=== PATIENT | female | born 1945 | race Caucasian/White ===

== ENCOUNTER 2017-04-13 09:40 | Outpatient (CLI) | payer MEDICARE, MEDICAID ==
[~2017-04-13] VITALS: Ht 165.1 cm; Wt 70.3 kg
[2017-04-13 09:58] VITALS: BP 145/87
[2017-04-13] MEDS ORDERED: CATAPRES0.1 MG ORAL (10:36)
[2017-04-13] MEDS ORDERED: MIRTAZAPINE15 MG ORAL (10:36)
[2017-04-13] MEDS ORDERED: NAMENDA10 MG ORAL (10:36)
[2017-04-13] MEDS ORDERED: COREG6.25 MG ORAL (10:36)
[2017-04-13] MEDS ORDERED: SAPHRIS5 MG SL (10:36)
[2017-04-13] MEDS ORDERED: FLEET ENEMA133 ML RECTAL (10:36)
[2017-04-13] MEDS ORDERED: ZESTRIL10 M1 ORAL (10:36)
[2017-04-13] MEDS ORDERED: SENNA LAX8.6 MG PO (10:36)
[2017-04-13] MEDS ORDERED: MILK OF MA400 MG/51 ORAL (10:36)
[2017-04-13] MEDS ORDERED: BISACODYL5 MG ORAL (10:36)
[2017-04-13] MEDS ORDERED: ACETAMINOPHEN120 MG RECTAL (10:36)
[2017-04-13] MEDS ORDERED: HYDRALAZINE HCL25 M1 ORAL (10:36)
[2017-04-13] MEDS ORDERED: IRON325 M1 PO (10:36)
[2017-04-13] MEDS ORDERED: PROTONIX40 MG ORAL (10:36)
[2017-04-13] MEDS ORDERED: COLACE100 MG ORAL (10:36)
--- NOTE | 2017-04-13 10:39 | GI Initial Consult Note ---
Julianna Juanjo N.P. 04/13/17 1039: History of Present Illness General Date patient seen: April 13, 2017 Time patient seen: 10:30 Referring physician: JANELLE RENEE Reason for Consultation: UC Present Illness HPI 71 year old patient referred by Dr. Renee for evaluation of possible UC and anemia. The patient presents today with c/o of constipation with minimum relief from laxatives. She also has a hx of dysphagia and is on a puree diet. Home Meds Reported Medications Lisinopril* (ZESTRIL*) 10 Mg Tablet, 10 MG ORAL DAILY, TAB 04/13/17 Acetaminophen* (TYLENOL*) 120 Mg Supp.rect, 120 MG RECTAL Q4H Y, SUPP 04/13/17 Sennosides (SENNA LAX) 8.6 Mg Tablet, 8.6 MG PO, TAB 04/13/17 Mirtazapine* (REMERON*) 15 Mg Tablet, 7.5 MG ORAL BEDTIME, TAB 04/13/17 Pantoprazole* (PROTONIX*) 40 Mg Tablet.dr, 40 MG ORAL DAILY, TAB 04/13/17 Memantine Hcl* (NAMENDA*) 10 Mg Tablet, 10 MG ORAL DAILY, TAB 04/13/17 Magnesium Hydroxide* (MILK OF MAGNESIA*) 400 Mg/5 Ml Oral.susp, 30 ML ORAL DAILY , ML 04/13/17 Hydralazine Hcl* (HYDRALAZINE HCL*) 25 Mg Tablet, 25 MG ORAL EVERY 8 HOURS, TAB 0 Refills 04/13/17 Na Phos,M-B/Na Phos,Di-Ba* (FLEET ENEMA*) 133 Ml Enema, 133 ML RECTAL DAILY, ML 0 Refills 04/13/17 Ferrous Sulfate (IRON) 325 Mg Tablet, 325 MG PO, TAB 04/13/17 Bisacodyl* (DULCOLAX*) 5 Mg Tablet.dr, 10 MG ORAL DAILY, #10 TAB 0 Refills 04/13/17 Docusate Sodium* (COLACE*) 100 Mg Capsule, 100 MG ORAL DAILY, CAP 04/13/17 Carvedilol (Coreg) 6.25 Mg Tablet, 6.25 MG ORAL EVERY 12 HOURS, TAB 04/13/17 Clonidine Hcl* (CATAPRES*) 0.1 Mg Tablet, 0.1 MG ORAL Q12HR, #90 TAB 0 Refills 04/13/17 Asenapine Maleate (SAPHRIS) 5 Mg Tab.subl, 5 MG SL, TAB 04/13/17 Med list reviewed/reconciled: Yes Allergies: Coded Allergies: No Known Allergies (Unverified , 04/13/17) Patient History History Provided By: Patient, Medical Record PMH Narrative UC? breast tumor anemia HTN schizophrenia depression PSHx Left inguinal hernia left leg Family History Narrative N/A Social History: Denies: alcohol use, drug use, other, smoking Review of Systems All Other Systems: negative except mentioned in HPI Physical Exam Vital Signs Date Time Temp Pulse Resp B/P Pulse Ox O2 Delivery O2 Flow Rate FiO2 04/13/17 09:58 98.0 80 18 145/87 100 Sp02 EP Interpretation: reviewed General Appearance: well appearing, no apparent distress, alert Head: normocephalic EENT: PERRL/EOMI, normal ENT inspection Neck: supple Respiratory: normal breath sounds Cardiovascular: normal rate Gastrointestinal: normal inspection, non tender, soft Rectal: deferred Genitourinary: no CVA tenderness Musculoskeletal: normal inspection, back normal Neurologic: alert, responsive Psychiatric: normal inspection Skin: normal inspection, normal color, no rash, warm/dry Lymphatic: normal inspection, no adenopathy GI: Plan Problems: (1) Ulcerative colitis (2) Breast tumor (3) Anemia (4) Colonoscopy planned (5) HTN (hypertension) (6) Schizophrenia (7) Depressed (8) Dysphagia Plan EGD/colonoscopy 04/23/17 - [facility] & [employer] prep instructions given and acknowledged. Seen with Dr. Samson. Thank you for referring this patient, we will follow. AME SAMSON 04/13/17 1045: History of Present Illness Present Illness Home Meds Reported Medications Lisinopril* (ZESTRIL*) 10 Mg Tablet, 10 MG ORAL DAILY, TAB 04/13/17 Acetaminophen* (TYLENOL*) 120 Mg Supp.rect, 120 MG RECTAL Q4H Y, SUPP 04/13/17 Sennosides (SENNA LAX) 8.6 Mg Tablet, 8.6 MG PO, TAB 04/13/17 Mirtazapine* (REMERON*) 15 Mg Tablet, 7.5 MG ORAL BEDTIME, TAB 04/13/17 Pantoprazole* (PROTONIX*) 40 Mg Tablet.dr, 40 MG ORAL DAILY, TAB 04/13/17 Memantine Hcl* (NAMENDA*) 10 Mg Tablet, 10 MG ORAL DAILY, TAB 04/13/17 Magnesium Hydroxide* (MILK OF MAGNESIA*) 400 Mg/5 Ml Oral.susp, 30 ML ORAL DAILY , ML 04/13/17 Hydralazine Hcl* (HYDRALAZINE HCL*) 25 Mg Tablet, 25 MG ORAL EVERY 8 HOURS, TAB 0 Refills 04/13/17 Na Phos,M-B/Na Phos,Di-Ba* (FLEET ENEMA*) 133 Ml Enema, 133 ML RECTAL DAILY, ML 0 Refills 04/13/17 Ferrous Sulfate (IRON) 325 Mg Tablet, 325 MG PO, TAB 04/13/17 Bisacodyl* (DULCOLAX*) 5 Mg Tablet.dr, 10 MG ORAL DAILY, #10 TAB 0 Refills 04/13/17 Docusate Sodium* (COLACE*) 100 Mg Capsule, 100 MG ORAL DAILY, CAP 04/13/17 Carvedilol (Coreg) 6.25 Mg Tablet, 6.25 MG ORAL EVERY 12 HOURS, TAB 04/13/17 Clonidine Hcl* (CATAPRES*) 0.1 Mg Tablet, 0.1 MG ORAL Q12HR, #90 TAB 0 Refills 04/13/17 Asenapine Maleate (SAPHRIS) 5 Mg Tab.subl, 5 MG SL, TAB 04/13/17 Allergies: Coded Allergies: No Known Allergies (Unverified , 04/13/17) GI: Plan Plan The patient was seen and examined at bedside and all new and available data was reviewed in the patients chart. I agree with the above findings, impression and plan. (Patient seen earlier today. Signature stamp does not reflect patient encounter time.). -Johana Tobar MDh Juanjo N.PGlynn April 13, 2017 10:39 AME SAMSON April 13, 2017 10:45
== END 2017-04-13 10:20 | disposition home or self-care (01) ==
LOC: PAN 09:40
DX: K51.90 Ulcerative colitis, unspecified, without complications (principal); D49.6 Neoplasm of unspecified behavior of brain; D64.9 Anemia, unspecified; I10 Essential (primary) hypertension; F20.9 Schizophrenia, unspecified; F32.9 Major depressive disorder, single episode, unspecified; R13.10 Dysphagia, unspecified
CPT/HCPCS: 99201

== ENCOUNTER 2017-05-07 08:33 | Day surgery (SDC) | payer MEDICARE, MEDICAID ==
--- NOTE | 2017-04-23 06:53 | Anethesia Preoperative Eval ---
Anesthesia Pre-op PMH/ROS General Mallampati Score Class I : Soft palate, uvula, fauces, pillars visible Class II: Soft palate, uvula, fauces visible Class III: Soft palate, base of uvula visible Class IV: Only hard plate visible Allergies: Coded Allergies: No Known Allergies (Unverified , 04/13/17) LESTER HWANG April 23, 2017 06:53
[~2017-05-07] VITALS: Ht 166.4 cm; Wt 69.9 kg
[2017-05-07] VITALS (7 sets, daily range): BP systolic 132–153; BP diastolic 72–95
[~2017-05-07 08:33] MED LIST: ACETAMINOPHEN120 MG RECTAL; BISACODYL5 MG ORAL; CATAPRES0.1 MG ORAL; COLACE100 MG ORAL; COREG6.25 MG ORAL; FLEET ENEMA133 ML RECTAL; HYDRALAZINE HCL25 M1 ORAL; IRON325 M1 PO; MILK OF MA400 MG/51 ORAL; MIRTAZAPINE15 MG ORAL; NAMENDA10 MG ORAL; PROTONIX40 MG ORAL; SAPHRIS5 MG SL; SENNA LAX8.6 MG PO; ZESTRIL10 M1 ORAL
[2017-05-07] MEDS ORDERED: Lidocaine 1% MPF 10mg/ml 5ml ONE ×2 (08:34→10:50)
[2017-05-07] MEDS ORDERED: Propofol 10mg/ml 20ml IV ONE ×2 (08:34→10:50)
[2017-05-07] MEDS ORDERED: LR 1000ml ONE (08:34)
--- NOTE | 2017-05-07 10:26 | Short Stay Surgery H&P ---
History of Present Illness History of Present Illness Chief Complaint uc, gerd HPI Radha Joiner is a 71 year old female who was admitted on for Colitis, Anemia Patient History Allergies: Coded Allergies: PENICILLINS (Verified Adverse Reaction, Severe, "passed out", 05/07/17) PAST MEDICAL HISTORY: (1) Dysphagia (2) Colonoscopy planned (3) Depressed (4) HTN (hypertension) (5) Breast tumor (6) Schizophrenia (7) Anemia (8) Ulcerative colitis Past Surgeries: Social History: Medication History Scheduled Bisacodyl* (Dulcolax*), 10 MG ORAL DAILY, (Reported) Carvedilol (Coreg), 6.25 MG ORAL EVERY 12 HOURS, (Reported) Clonidine Hcl* (Catapres*), 0.1 MG ORAL Q12HR, (Reported) Docusate Sodium* (Colace*), 100 MG ORAL DAILY, (Reported) Hydralazine Hcl* (Hydralazine Hcl*), 25 MG ORAL EVERY 8 HOURS, (Reported) Lisinopril* (Zestril*), 10 MG ORAL DAILY, (Reported) Magnesium Hydroxide* (Milk Of Magnesia*), 30 ML ORAL DAILY, (Reported) Memantine Hcl* (Namenda*), 10 MG ORAL DAILY, (Reported) Mirtazapine* (Remeron*), 7.5 MG ORAL BEDTIME, (Reported) Na Phos,M-B/Na Phos,Di-Ba* (Fleet Enema*), 133 ML RECTAL DAILY, (Reported) Pantoprazole* (Protonix*), 40 MG ORAL DAILY, (Reported) Scheduled PRN Acetaminophen* (Tylenol*), 120 MG RECTAL Q4H PRN, (Reported) Miscellaneous Medications Asenapine Maleate (Saphris), 5 MG SL, (Reported) Ferrous Sulfate (Iron), 325 MG PO, (Reported) Sennosides (Senna Lax), 8.6 MG PO, (Reported) Review of Systems Cardiovascular: Reports: no symptoms Respiratory: Reports: no symptoms Skeletal: Reports: no symptoms Gastrointestinal: Reports: no symptoms Genitourinary: Reports: no symptoms Neurologic: Reports: no symptoms Endocrine: Reports: no symptoms Hematologic: Reports: no symptoms Physical Exam Vital Signs Last Vital Signs Date Time Temp Pulse Resp B/P Pulse Ox O2 Delivery O2 Flow Rate FiO2 05/07/17 09:40 97.3 84 18 146/72 99 Room Air Skin: normal HENT: normal Heart: normal Lungs: normal Abdomen: normal Extremities: normal Plan Plan of Care egd/colon Final Diagnosis: Attestation Are the patient's medical conditions optimized for surgery? Attestation Response: yes AME SAMSON May 07, 2017 10:26
--- NOTE | 2017-05-07 10:30 | Pre-Procedure Note/Attestation ---
Pre-Procedure Note/Attestation Complete Prior to Procedure Planned Procedure: not applicable Procedure Narrative: egd/colon Indications for Procedure Pre-Operative Diagnosis: uc, gerd Attestation I attest that I discussed the nature of the procedure; its benefits; risks and complications; and alternatives (and the risks and benefits of such alternatives ), prior to the procedure, with the patient (or the patient's legal claims customer service representative). I attest that, if there was a reasonable possibility of needing a blood transfusion, the patient (or the patient's legal claims customer service representative) was given the [facility] standardized written summary, pursuant to the Germain Anabel Blood Safety Act ([place] Health and Safety Code # 1645, as amended). I attest that I re-evaluated the patient just prior to the surgery and that there has been no change in the patient's H&P, except as documented below: AME SAMSON May 07, 2017 10:30
--- NOTE | 2017-05-07 11:20 | Endoscopy Procedure Note ---
Endoscopy Procedure Note Indication for Procedure: colitis, anemia Procedures Performed: EGD, colonoscopy Operative Findings/Diagnosis: esoph stricture, ?colon mass Specimen: yes Pt Tolerated Procedure Well: Yes Estimated Blood Loss: none Anesthesiologist: pamela Anesthesia: MAC Implant(s) used?: No 50 yrs or older w/o bx or poly: No If not recommended, why?: Above average risk 10 yrs. F/U needed: Yes 18 years or older w/prev. colo: No AME SAMSON May 07, 2017 11:20
--- NOTE | 2017-05-07 11:34 | Immediate Post-Op Evaluation ---
Immediate Post-Op Evalulation Immediate Post-Op Evalulation Procedure: egd/colonoscopy Date of Evaluation: May 07, 2017 Time of Evaluation: 11:33 IV Fluids: 500 Blood Pressure Systolic: 130 Blood Pressure Diastolic: 60 Pulse Rate: 78 Respiratory Rate: 14 O2 Sat by Pulse Oximetry: 100 Nausea: No Vomiting: No Complications none Patient Status: awake, patent Hydration Status: adequate Drug: none CEE MARTIN CRNA May 07, 2017 11:34
--- NOTE | 2017-05-07 11:35 | Anethesia Preoperative Eval ---
Anesthesia Pre-op PMH/ROS General Date of Evaluation: May 07, 2017 Time of Evaluation: 11:34 Anesthesiologist: laron ASA Score: ASA 3 Mallampati Score Class I : Soft palate, uvula, fauces, pillars visible Class II: Soft palate, uvula, fauces visible Class III: Soft palate, base of uvula visible Class IV: Only hard plate visible Mallampati Classification: Class III Surgeon: fredis Diagnosis: anemia Surgical Procedure: egd/Colonoscopy Anesthesia History: none Family History: no anesthesia problems Allergies: Coded Allergies: PENICILLINS (Verified Adverse Reaction, Severe, "passed out", 05/07/17) Medications: see eMAR Past Medical History Cardiovascular: Reports: HTN Pulmonary: Denies: COPD, RIYA, asthma, other Gastrointestinal/Genitourinary: Reports: GERD Neurologic/Psychiatric: Reports: other - schizo Endocrine: Denies: DM, hypothyroidism, other, steroids HEENT: Denies: KALTAG (L), KALTAG (R), cataract (L), cataract (R), glaucoma, other Hematology/Immune: Reports: anemia PSxH Narrative: see chart Anesthesia Pre-op Phys. Exam Physician Exam Last Vital Signs Date Time Temp Pulse Resp B/P Pulse Ox O2 Delivery O2 Flow Rate FiO2 05/07/17 09:40 97.3 84 18 146/72 99 Room Air Constitutional: NAD Neurologic: CN 2-12 intact Cardiovascular: RRR Respiratory: CTA Gastrointestinal: S/NT/ND Airway Exam Mallampati Classification 3 Mallampati Score: Class II MO: limited ROM: limited Dentures: no lower, no upper Anesthesia Pre-op A/P Studies Pre-op Studies: EKG - sr Risk Assessment & Plan Plan: mac Status Change Before Surgery: No Pre-Antibiotics Drug: none CEE MARTIN CHANGE MANAGEMENT CONSULTANT May 07, 2017 11:35
--- NOTE | 2017-05-07 11:49 | 48 Hour Post Anesthesia Eval ---
Post Anesthesia Evaluation Procedure: egd/colonoscopy Date of Evaluation: May 07, 2017 Time of Evaluation: 11:49 Blood Pressure Systolic: 112 0: 50 Pulse Rate: 70 Respiratory Rate: 14 O2 Sat by Pulse Oximetry: 99 Airway: patent Nausea: No Vomiting: No Hydration Status: adequate Cardiopulmonary Status: stable Mental Status/LOC: patient returned to baseline Post-Anesthesia Complications: none Follow-up care needed: N/A CEE MARTIN CRNA May 07, 2017 11:49
--- NOTE | 2017-05-07 18:15 | Procedure Note ---
DATE OF PROCEDURE: 05/07/2017 PROCEDURE: Upper endoscopy and colonoscopy. SURGEON: Willy Eldridge M.D. ANESTHESIA: Per Lexi GALINDO INSTRUMENT: Olympus adult flexible upper endoscope and colonoscope. INDICATION: History of Crohn's disease and anemia. The procedure, risks, benefits, and possible consequences, including hemorrhage, aspiration, perforation and infection, and alternative treatments, were explained to the patient/legal guardian by Dr. Willy Eldridge and the patient/legal guardian understood and accepted these risks. PROCEDURE IN DETAIL: After informed consent was obtained and the patient was adequately sedated, Olympus endoscope was advanced from mouth into the esophagus. Right at the GE junction, there was a very tight stricture. We could not pass the scope through. We do not have consent for dilatation. So, we had to abort the procedure at this time. At this time, the upper endoscope was retrieved. The patient was turned over for colonoscopy. First, a rectal exam was performed, which was normal. Then, the scope was advanced from the rectum into the area, which seems to be proximal transverse colon. We encountered a narrowing and inflammation lesion in this area suspicious for either malignancy versus severe stricture inflammatory. Biopsy from this area was obtained. We could not pass the scope beyond this point. The most proximal part of this area was tattooed. Then, the scope was gradually retrieved. The patient has evidence of significant diverticulosis throughout the rest of the colon. Retroflexion of rectum showed some internal hemorrhoids. SUMMARY OF FINDINGS: 1. Esophageal stricture at the GE junction. We could not pass the scope. 2. A lesion in the proximal transverse colon causing luminal obstruction. We could not pass the scope. Biopsy from this area was obtained and also was tattooed. 3. Diverticulosis. 4. Internal hemorrhoids. RECOMMENDATIONS: The patient needs to get a CT of the chest, abdomen, and pelvis. Follow biopsy results. Send CEA. The patient will need a repeat endoscopy with dilatation in the next week hopefully. The patient to follow in the office to go over all this and explained to her. Willy Eldridge M.D. DR: SILVIA JOB#: [id number] CC:
== END 2017-05-07 13:15 | disposition home or self-care (01) ==
LOC: GAS 08:33
DX: C18.4 Malignant neoplasm of transverse colon (principal); K57.30 Diverticulosis of large intestine without perforation or abscess without bleeding; K64.8 Other hemorrhoids; D64.9 Anemia, unspecified; K22.2 Esophageal obstruction; Z87.19 Personal history of other diseases of the digestive system; F32.9 Major depressive disorder, single episode, unspecified; I10 Essential (primary) hypertension; R13.10 Dysphagia, unspecified; F20.9 Schizophrenia, unspecified; Z88.0 Allergy status to penicillin; Z53.8 Procedure and treatment not carried out for other reasons
CPT/HCPCS: 43235; 45380; 45381; 82962; 93005; J2704; J7120; 94003; 94150

== ENCOUNTER 2017-05-19 15:04 | Outpatient (CLI) | payer MEDICARE, MEDICAID ==
[2017-05-20] MEDS ORDERED: ACETAMINOPHEN325 M1 ORAL (15:05)
[2017-05-20] MEDS ORDERED: DULCOLAX10 MG RC (15:05)
--- NOTE | 2017-05-20 15:32 | Diagnostic Imaging Report ---
Indication: Abdominal pain Technique: Spiral acquisitions obtained through the abdomen and pelvis. Patient given oral contrast. No IV contrast utilized, per patient request.. Multiplanar reconstructions were generated. Total dose length product 762 mGycm. CTDIvol(s) 15 mGy. Dose reduction achieved using automated exposure control Comparison: None Findings: There is colonic diverticulosis. There is slight infiltration of the pericolonic fat in the region of the junction of the descending and sigmoid colon. There are a few prominent lymph nodes in the vicinity. The appendix not definitely identified, but there are no findings to suggest acute appendicitis. No small bowel distention or small bowel wall thickening. Contrast traverses the entirety of the small bowel.. Immediately deep to the rectus abdominis tendon, there is a small fluid collection which measures 5.4 cm transverse a 4.4 cm craniocaudad by 2.2 cm thick. This demonstrates a somewhat prominent enhancing rim. This appears to be at the cephalad aspect of the surgical incision. There is a moderate-sized sliding-type hiatal hernia. There is prominent soft tissue thickening in the region of the gastric cardia, measuring approximately 5.6 x 2.3 cm. The duodenum is unremarkable except for a small diverticulum. Lack of IV contrast limits assessment of the solid organs. The liver demonstrates a subtle area of low attenuation in segment 5 which measures 4.5 cm in diameter, not cystic. A few small subcentimeter low-attenuation areas are seen scattered throughout the liver, too small to characterize. The gallbladder is unremarkable. The bile ducts are unremarkable. The pancreas, spleen, adrenals are unremarkable. The left kidney demonstrates a 1.6 cm upper pole cyst. There is a 2.2 cm exophytic left renal interpolar lesion which demonstrates nonspecific soft tissue attenuation. A second 1.9 cm lesion is seen coming off of the lower pole, demonstrates similar nonspecific soft tissue attenuation. A 1.5 cm cyst coming off of the medial lower pole. The right kidney demonstrates a anterior contour bulge measuring 2.2 cm, could represent a mass, likewise demonstrate nonspecific soft tissue attenuation, and a similar one in the anteromedial upper pole. There is a slightly hyperattenuating 8mm lesion in the right renal interpolar region, which demonstrates nonspecific attenuation. No retroperitoneal mass or adenopathy. No pelvic mass or adenopathy. The uterus is unremarkable. The left ovary demonstrates a 2.7 cm cyst. Included lung bases are clear except for minimal atelectasis or scarring on the left. Impression: Colonic diverticulosis. Slight infiltration of the pericolonic fat in the region of the junction of the descending and sigmoid colon, could indicate early acute diverticulitis. Local lymphadenopathy, likely reactive 5.4 x 4.4 x 2.2 cm fluid collection deep to the rectus abdominis tendon. This appears to be at the cephalad aspect of the surgical scar, suspect that this is a post surgical clip collection. Nonetheless infected collection cannot be ruled out. Correlate with clinical findings, consider aspiration clinical suspicious 4.5 cm low-attenuation lesion in segment 5 of the liver. Not better characterize in the absence of IV contrast, but primary or metastatic neoplasm definitely a possible etiology. Liver abscess also a possibility. Recommend further evaluation with contrast CT or MRI Hiatal hernia Multiple exophytic renal lesions bilaterally, isoattenuating to renal parenchyma. Any of these could represent a solid neoplasm. Further evaluation with contrast CT or MRI recommended Apparent gastric fundal lesion. While quite possibly defect due to redundant mucosa related to incomplete distention, a mass is definitely a possibility. Consider further evaluation with endoscopy 2.7 cm left ovarian cyst, likely a benign functional cyst but not definitely in a postmenopausal female. Furthe -- r evaluation with pelvic and endovaginal ultrasound is recommended Incidental findings as noted, including degenerative lumbar spondylosis, duodenal diverticulum, left basilar pulmonary atelectasis or scar Findings discussed by phone with Dr. Eldridge at the time of interpretation The CT scanner at [facility] is accredited by the [employer] and the scans are performed using protocols designed to limit radiation exposure to as low as reasonably achievable to attain images of sufficient resolution adequate for diagnostic evaluation.
== END 2017-05-19 17:04 | disposition home or self-care (01) ==
LOC: CAT 15:04
DX: C18.9 Malignant neoplasm of colon, unspecified (principal)
CPT/HCPCS: 74176

== ENCOUNTER 2017-05-20 09:51 | Outpatient (CLI) | payer MEDICARE, MEDICAID ==
--- NOTE | 2017-05-19 17:27 | Diagnostic Imaging Report ---
Indication: Abdominal pain Technique: Spiral acquisitions obtained through the abdomen and pelvis. Patient given oral contrast. No IV contrast utilized, per patient request.. Multiplanar reconstructions were generated. Total dose length product 762 mGycm. CTDIvol(s) 15 mGy. Dose reduction achieved using automated exposure control Comparison: None Findings: There is colonic diverticulosis. There is slight infiltration of the pericolonic fat in the region of the junction of the descending and sigmoid colon. There are a few prominent lymph nodes in the vicinity. The appendix not definitely identified, but there are no findings to suggest acute appendicitis. No small bowel distention or small bowel wall thickening. Contrast traverses the entirety of the small bowel.. Immediately deep to the rectus abdominis tendon, there is a small fluid collection which measures 5.4 cm transverse a 4.4 cm craniocaudad by 2.2 cm thick. This demonstrates a somewhat prominent enhancing rim. This appears to be at the cephalad aspect of the surgical incision. There is a moderate-sized sliding-type hiatal hernia. There is prominent soft tissue thickening in the region of the gastric cardia, measuring approximately 5.6 x 2.3 cm. The duodenum is unremarkable except for a small diverticulum. Lack of IV contrast limits assessment of the solid organs. The liver demonstrates a subtle area of low attenuation in segment 5 which measures 4.5 cm in diameter, not cystic. A few small subcentimeter low-attenuation areas are seen scattered throughout the liver, too small to characterize. The gallbladder is unremarkable. The bile ducts are unremarkable. The pancreas, spleen, adrenals are unremarkable. The left kidney demonstrates a 1.6 cm upper pole cyst. There is a 2.2 cm exophytic left renal interpolar lesion which demonstrates nonspecific soft tissue attenuation. A second 1.9 cm lesion is seen coming off of the lower pole, demonstrates similar nonspecific soft tissue attenuation. A 1.5 cm cyst coming off of the medial lower pole. The right kidney demonstrates a anterior contour bulge measuring 2.2 cm, could represent a mass, likewise demonstrate nonspecific soft tissue attenuation, and a similar one in the anteromedial upper pole. There is a slightly hyperattenuating 8mm lesion in the right renal interpolar region, which demonstrates nonspecific attenuation. No retroperitoneal mass or adenopathy. No pelvic mass or adenopathy. The uterus is unremarkable. The left ovary demonstrates a 2.7 cm cyst. Included lung bases are clear except for minimal atelectasis or scarring on the left. Impression: Colonic diverticulosis. Slight infiltration of the pericolonic fat in the region of the junction of the descending and sigmoid colon, could indicate early acute diverticulitis. Local lymphadenopathy, likely reactive 5.4 x 4.4 x 2.2 cm fluid collection deep to the rectus abdominis tendon. This appears to be at the cephalad aspect of the surgical scar, suspect that this is a post surgical clip collection. Nonetheless infected collection cannot be ruled out. Correlate with clinical findings, consider aspiration clinical suspicious 4.5 cm low-attenuation lesion in segment 5 of the liver. Not better characterize in the absence of IV contrast, but primary or metastatic neoplasm definitely a possible etiology. Liver abscess also a possibility. Recommend further evaluation with contrast CT or MRI Hiatal hernia Multiple exophytic renal lesions bilaterally, isoattenuating to renal parenchyma. Any of these could represent a solid neoplasm. Further evaluation with contrast CT or MRI recommended Apparent gastric fundal lesion. While quite possibly defect due to redundant mucosa related to incomplete distention, a mass is definitely a possibility. Consider further evaluation with endoscopy 2.7 cm left ovarian cyst, likely a benign functional cyst but not definitely in a postmenopausal female. Furthe -- r evaluation with pelvic and endovaginal ultrasound is recommended Incidental findings as noted, including degenerative lumbar spondylosis, duodenal diverticulum, left basilar pulmonary atelectasis or scar Findings discussed by phone with Dr. Eldridge at the time of interpretation The CT scanner at [facility] is accredited by the [employer] and the scans are performed using protocols designed to limit radiation exposure to as low as reasonably achievable to attain images of sufficient resolution adequate for diagnostic evaluation.
[2017-05-20 14:56] VITALS: BP 142/71
[2017-05-20] MEDS ORDERED: ACETAMINOPHEN325 M1 ORAL (15:05)
[2017-05-20] MEDS ORDERED: DULCOLAX10 MG RC (15:05)
--- NOTE | 2017-05-20 15:46 | GI Progress Note ---
Assessment/Plan Problems: (1) Esophageal stricture ICD Codes: K22.2 - Esophageal obstruction SNOMED: 73380641 (2) Liver lesion ICD Codes: K76.9 - Liver disease, unspecified SNOMED: 438392728 (3) Colon cancer ICD Codes: C18.9 - Malignant neoplasm of colon, unspecified SNOMED: 357556797 (4) Dysphagia ICD Codes: R13.10 - Dysphagia, unspecified SNOMED: 26749334, 897483977 (5) Anemia ICD Codes: D64.9 - Anemia, unspecified SNOMED: 826421625 (6) Ulcerative colitis ICD Codes: K51.90 - Ulcerative colitis, unspecified, without complications SNOMED: 36783249 Status: stable, unchanged Status Narrative Discussed with Dr. Eldridge. Assessment/Plan Endoscopy Procedure Note Indication for Procedure: colitis, anemia Procedures Performed: EGD, colonoscopy Operative Findings/Diagnosis: esoph stricture, ?colon mass AME ELDRIDGE - May 07, 2017 11:20 APCT reviewed, see full report below. ordered PET/CT to be done at [facility] 06/07/17. scheduled patient for EGD with dilation 06/04/17. - NPO @ [place] day prior to procedure. referred to surgeon and oncology. Subjective Subjective constipation dysphagia Objective Last 24 Hour Vital Signs Date Time Temp Pulse Resp B/P Pulse Ox O2 Delivery O2 Flow Rate FiO2 05/20/17 14:56 98.0 69 16 142/71 General Appearance: no apparent distress, alert Cardiovascular: normal rate Respiratory/Chest: normal breath sounds, no respiratory distress Abdominal Exam: normal bowel sounds, non tender, soft Extremities: normal range of motion Objective Procedure: CT Abdomen Pelvis WO Contrast Indication: Abdominal pain Impression: Colonic diverticulosis. Slight infiltration of the pericolonic fat in the region of the junction of the descending and sigmoid colon, could indicate early acute diverticulitis. Local lymphadenopathy, likely reactive 5.4 x 4.4 x 2.2 cm fluid collection deep to the rectus abdominis tendon. This appears to be at the cephalad aspect of the surgical scar, suspect that this is a post surgical clip collection. Nonetheless infected collection cannot be ruled out. Correlate with clinical findings, consider aspiration clinical suspicious 4.5 cm low-attenuation lesion in segment 5 of the liver. Not better characterize in the absence of IV contrast, but primary or metastatic neoplasm definitely a possible etiology. Liver abscess also a possibility. Recommend further evaluation with contrast CT or MRI Hiatal hernia Multiple exophytic renal lesions bilaterally, isoattenuating to renal parenchyma. Any of these could represent a solid neoplasm. Further evaluation with contrast CT or MRI recommended Apparent gastric fundal lesion. While quite possibly defect due to redundant mucosa related to incomplete distention, a mass is definitely a possibility. Consider further evaluation with endoscopy 2.7 cm left ovarian cyst, likely a benign functional cyst but not definitely in a postmenopausal female. Further evaluation with pelvic and endovaginal ultrasound is recommended Incidental findings as noted, including degenerative lumbar spondylosis, duodenal diverticulum, left basilar pulmonary atelectasis or scar Julianna Nguyen N.P. May 20, 2017 15:46
== END 2017-05-20 10:30 | disposition home or self-care (01) ==
LOC: PAN 09:51
DX: K22.2 Esophageal obstruction (principal); K76.9 Liver disease, unspecified; C18.9 Malignant neoplasm of colon, unspecified; R13.10 Dysphagia, unspecified; D64.9 Anemia, unspecified; K51.90 Ulcerative colitis, unspecified, without complications; K57.90 Diverticulosis of intestine, part unspecified, without perforation or abscess without bleeding; R59.1 Generalized enlarged lymph nodes; K44.9 Diaphragmatic hernia without obstruction or gangrene; N83.202 Unspecified ovarian cyst, left side; M47.896 Other spondylosis, lumbar region
CPT/HCPCS: 74176; G0463; 99211

== ENCOUNTER 2017-06-04 08:13 | Day surgery (SDC) | payer MEDICARE, MEDICAID ==
[2017-06-04] VITALS (7 sets, daily range): BP systolic 102–120; BP diastolic 63–76
[~2017-06-04] VITALS: Ht 165.1 cm; Wt 68.0 kg
[~2017-06-04 08:13] MED LIST changes: +ACETAMINOPHEN325 M1 ORAL; +DULCOLAX10 MG RC
[2017-06-04] MEDS ORDERED: Lidocaine 1% MPF 10mg/ml 5ml ONE (08:14)
[2017-06-04] MEDS ORDERED: Propofol 10mg/ml 20ml IV ONE (08:14)
[2017-06-04] MEDS ORDERED: LR 1000ml ONE (08:14)
[2017-06-04 09:25] LABS: EOSINOPHILS % (AUTO) 2.4 % (0.0-3.0); MEAN CORPUSCULAR HEMOGLOBIN 27.3 PG (27.0-31.0); MEAN CORPUSCULAR HGB CONC 31.9 G/DL (32.0-36.0); MEAN CORPUSCULAR VOLUME 85 FL (80-99); MEAN PLATELET VOLUME 5.8 FL (6.5-10.1); MONOCYTES % (AUTO) 5.4 % (1.0-10.0); NEUTROPHILS % (AUTO) 74.2 % (45.0-75.0); PLATELET COUNT 201 K/UL (150-450); RED BLOOD COUNT 4.49 M/UL (4.20-5.40); RED CELL DISTRIBUTION WIDTH 15.2 % (11.6-14.8); WHITE BLOOD COUNT 7.4 K/UL (4.8-10.8)
[2017-06-04 09:52] LABS: ALANINE AMINOTRANSFERASE 7 U/L (3-33); ALBUMIN/GLOBULIN RATIO 1.2 (1.0-2.7); AMYLASE 144 U/L (10-110); ANION GAP 18 (5-15); ASPARTATE AMINO TRANSFERASE 15 U/L (5-40); CALCIUM 9.9 mg/dL (8.6-10.2); CARBON DIOXIDE 23 mEQ/L (20-30); CHLORIDE 103 mEQ/L (98-107); CREATININE 1.8 mg/dL (0.5-0.9); HEMOLYSIS 6; LIPASE 30 U/L (< 60); POTASSIUM 4.2 mEQ/L (3.4-4.9); SODIUM 144 mEQ/L (135-145); TOTAL PROTEIN 7.2 g/dL (6.6-8.7)
--- NOTE | 2017-06-04 09:53 | Pre-Procedure Note/Attestation ---
Pre-Procedure Note/Attestation Complete Prior to Procedure Planned Procedure: not applicable Procedure Narrative: esophagogastroduodenoscopy with dilatation Indications for Procedure Pre-Operative Diagnosis: esoph stricture Attestation I attest that I discussed the nature of the procedure; its benefits; risks and complications; and alternatives (and the risks and benefits of such alternatives ), prior to the procedure, with the patient (or the patient's legal sales account representative). I attest that, if there was a reasonable possibility of needing a blood transfusion, the patient (or the patient's legal sales account representative) was given the [facility] standardized written summary, pursuant to the [place] Blood Safety Act ([place] Health and Safety Code # 1645, as amended). I attest that I re-evaluated the patient just prior to the surgery and that there has been no change in the patient's H&P, except as documented below: AME SAMSON Jun 04, 2017 09:53
--- NOTE | 2017-06-04 09:54 | Short Stay Surgery H&P ---
History of Present Illness History of Present Illness Chief Complaint esoph stricture HPI Radha Joiner is a 72 year old female who was admitted on for Esophageal Stricture Patient History Allergies: Coded Allergies: PENICILLINS (Verified Adverse Reaction, Severe, "passed out", 05/07/17) PAST MEDICAL HISTORY: (1) Schizophrenia (2) Breast tumor (3) HTN (hypertension) (4) Depressed (5) Anemia (6) Esophageal stricture (7) Liver lesion (8) Colon cancer Past Surgeries: Social History: Medication History Scheduled Asenapine Maleate (Saphris), 5 MG SL BID, (Reported) Bisacodyl (Dulcolax), 10 MG RC PRN, (Reported) Carvedilol (Coreg), 6.25 MG ORAL EVERY 12 HOURS, (Reported) Docusate Sodium* (Colace*), 100 MG ORAL DAILY, (Reported) Ferrous Sulfate (Iron), 325 MG PO DAILY, (Reported) Hydralazine Hcl* (Hydralazine Hcl*), 25 MG ORAL EVERY 8 HOURS, (Reported) Lisinopril* (Zestril*), 10 MG ORAL DAILY, (Reported) Magnesium Hydroxide* (Milk Of Magnesia*), 30 ML ORAL DAILY, (Reported) Memantine Hcl* (Namenda*), 10 MG ORAL BID, (Reported) Mirtazapine* (Remeron*), 7.5 MG ORAL BEDTIME, (Reported) Na Phos,M-B/Na Phos,Di-Ba* (Fleet Enema*), 133 ML RECTAL DAILY, (Reported) Pantoprazole* (Protonix*), 40 MG ORAL DAILY, (Reported) Sennosides (Senna Lax), 17.2 MG PO HS, (Reported) Scheduled PRN Acetaminophen* (Acetaminophen 325MG Tablet*), 650 MG ORAL Q4H PRN for Pain Scale (3-5), (Reported) Clonidine Hcl* (Catapres*), 0.1 MG ORAL Q12HR PRN for For High Blood Pressure, ( Reported) Review of Systems Cardiovascular: Reports: no symptoms Respiratory: Reports: no symptoms Skeletal: Reports: no symptoms Gastrointestinal: Reports: no symptoms Genitourinary: Reports: no symptoms Neurologic: Reports: no symptoms Endocrine: Reports: no symptoms Hematologic: Reports: no symptoms Physical Exam Vital Signs Last Vital Signs Date Time Temp Pulse Resp B/P Pulse Ox O2 Delivery O2 Flow Rate FiO2 06/04/17 08:46 97.1 70 18 118/68 100 Room Air Labs Laboratory Tests Test 06/04/17 08:45 White Blood Count 7.4 K/UL (4.8-10.8) Red Blood Count 4.49 M/UL (4.20-5.40) Hemoglobin 12.2 G/DL (12.0-16.0) Hematocrit 38.3 % (37.0-47.0) Mean Corpuscular Volume 85 FL (80-99) Mean Corpuscular Hemoglobin 27.3 PG (27.0-31.0) Mean Corpuscular Hemoglobin Concent 31.9 G/DL (32.0-36.0) L Red Cell Distribution Width 15.2 % (11.6-14.8) H Platelet Count 201 K/UL (150-450) Mean Platelet Volume 5.8 FL (6.5-10.1) L Neutrophils (%) (Auto) 74.2 % (45.0-75.0) Lymphocytes (%) (Auto) 17.0 % (20.0-45.0) L Monocytes (%) (Auto) 5.4 % (1.0-10.0) Eosinophils (%) (Auto) 2.4 % (0.0-3.0) Basophils (%) (Auto) 1.0 % (0.0-2.0) Sodium Level Pending Potassium Level Pending Chloride Level Pending Carbon Dioxide Level Pending Blood Urea Nitrogen Pending Creatinine Pending Estimat Glomerular Filtration Rate Pending Glucose Level Pending Calcium Level Pending Total Bilirubin Pending Aspartate Amino Transf (AST/SGOT) Pending Alanine Aminotransferase (ALT/SGPT) Pending Alkaline Phosphatase Pending Total Protein Pending Albumin Pending Globulin Pending Amylase Level Pending Lipase Pending Carcinoembryonic Antigen Pending CA 19-9 Antigen Pending Skin: normal HENT: normal Heart: normal Lungs: normal Abdomen: normal Extremities: normal Plan Plan of Care esophagogastroduodenoscopy and dilatation Final Diagnosis: Attestation Are the patient's medical conditions optimized for surgery? Attestation Response: yes AME SAMSON Jun 04, 2017 09:54
--- NOTE | 2017-06-04 10:46 | Immediate Post-Op Evaluation ---
Immediate Post-Op Evalulation Immediate Post-Op Evalulation Procedure: EDG Date of Evaluation: Jun 04, 2017 Time of Evaluation: 10:46 IV Fluids: 500 Blood Pressure Systolic: 102 Blood Pressure Diastolic: 68 Pulse Rate: 50 Respiratory Rate: 14 O2 Sat by Pulse Oximetry: 100 Temperature (Fahrenheit): 97.5 Nausea: No Vomiting: No Complications none Patient Status: awake, reacts, patent Hydration Status: adequate Drug: none CEE MARTIN CRNA Jun 04, 2017 10:46
--- NOTE | 2017-06-04 10:50 | Endoscopy Procedure Note ---
Endoscopy Procedure Note Indication for Procedure: dysphagia Procedures Performed: EGD Operative Findings/Diagnosis: esoph stricture Specimen: yes Pt Tolerated Procedure Well: Yes Estimated Blood Loss: none Anesthesiologist: pamela Anesthesia: MAC Implant(s) used?: No 50 yrs or older w/o bx or poly: Not Applicable 10yrs. F/U not recommended: Not Applicable AME SAMSON Jun 04, 2017 10:50
--- NOTE | 2017-06-04 10:53 | Anethesia Preoperative Eval ---
Anesthesia Pre-op PMH/ROS General Date of Evaluation: Jun 04, 2017 Time of Evaluation: 10:10 Anesthesiologist: laron ASA Score: ASA 3 Mallampati Score Class I : Soft palate, uvula, fauces, pillars visible Class II: Soft palate, uvula, fauces visible Class III: Soft palate, base of uvula visible Class IV: Only hard plate visible Mallampati Classification: Class III Surgeon: fredis Diagnosis: esophageal stricture Surgical Procedure: egd Anesthesia History: none Family History: no anesthesia problems Allergies: Coded Allergies: PENICILLINS (Verified Adverse Reaction, Severe, "passed out", 05/07/17) Medications: see eMAR Past Medical History Cardiovascular: Reports: HTN Pulmonary: Denies: COPD, RIYA, asthma, other Gastrointestinal/Genitourinary: Reports: other - hx colon ca Neurologic/Psychiatric: Reports: depression/anxiety Endocrine: Reports: DM HEENT: Denies: [place] (L), [place] (R), cataract (L), cataract (R), glaucoma, other Hematology/Immune: Reports: anemia Musculoskeletal/Integumentary: Denies: DDD, DJD, OA, RA, edema, other PSxH Narrative: egd Anesthesia Pre-op Phys. Exam Physician Exam Last Vital Signs Date Time Temp Pulse Resp B/P Pulse Ox O2 Delivery O2 Flow Rate FiO2 06/04/17 10:46 50 14 100 06/04/17 10:40 111/71 Room Air 06/04/17 10:35 3.0 06/04/17 10:32 97.5 Constitutional: NAD Neurologic: CN 2-12 intact Cardiovascular: RRR Respiratory: CTA Gastrointestinal: S/NT/ND Airway Exam Mallampati Classification 3 Mallampati Score: Class III MO: limited ROM: limited Dentures: no lower, no upper Anesthesia Pre-op A/P Labs Hematology Test 06/04/17 08:45 White Blood Count 7.4 K/UL (4.8-10.8) Red Blood Count 4.49 M/UL (4.20-5.40) Hemoglobin 12.2 G/DL (12.0-16.0) Hematocrit 38.3 % (37.0-47.0) Mean Corpuscular Volume 85 FL (80-99) Mean Corpuscular Hemoglobin 27.3 PG (27.0-31.0) Mean Corpuscular Hemoglobin Concent 31.9 G/DL (32.0-36.0) L Red Cell Distribution Width 15.2 % (11.6-14.8) H Platelet Count 201 K/UL (150-450) Mean Platelet Volume 5.8 FL (6.5-10.1) L Neutrophils (%) (Auto) 74.2 % (45.0-75.0) Lymphocytes (%) (Auto) 17.0 % (20.0-45.0) L Monocytes (%) (Auto) 5.4 % (1.0-10.0) Eosinophils (%) (Auto) 2.4 % (0.0-3.0) Basophils (%) (Auto) 1.0 % (0.0-2.0) Chemistry Test 06/04/17 08:45 Sodium Level 144 mEQ/L (135-145) Potassium Level 4.2 mEQ/L (3.4-4.9) Chloride Level 103 mEQ/L (98-107) Carbon Dioxide Level 23 mEQ/L (20-30) Anion Gap 18 (5-15) H Blood Urea Nitrogen 49 mg/dL (7-23) H Creatinine 1.8 mg/dL (0.5-0.9) H Estimat Glomerular Filtration Rate mL/min (>60) Glucose Level 120 mg/dL (74-106) H Calcium Level 9.9 mg/dL (8.6-10.2) Total Bilirubin 0.4 mg/dL (0.0-1.2) Aspartate Amino Transf (AST/SGOT) 15 U/L (5-40) Alanine Aminotransferase (ALT/SGPT) 7 U/L (3-33) Alkaline Phosphatase 83 U/L (35-104) Total Protein 7.2 g/dL (6.6-8.7) Albumin 4.0 g/dL (3.5-5.2) Globulin 3.2 g/dL Albumin/Globulin Ratio 1.2 (1.0-2.7) Amylase Level 144 U/L (10-110) H Lipase 30 U/L (< 60) Carcinoembryonic Antigen 29.4 ng/mL H CA 19-9 Antigen 104.4 U/mL (< 37) H Accucheck 83 Studies Pre-op Studies: EKG - sr Risk Assessment & Plan Plan: yakov Status Change Before Surgery: No Pre-Antibiotics Drug: none CEE MARTIN CRNA Jun 04, 2017 10:53
--- NOTE | 2017-06-04 11:10 | 48 Hour Post Anesthesia Eval ---
Post Anesthesia Evaluation Procedure: EDG Date of Evaluation: Jun 04, 2017 Time of Evaluation: 11:10 Blood Pressure Systolic: 120 0: 76 O2 Sat by Pulse Oximetry: 99 Airway: patent Nausea: No Vomiting: No Hydration Status: adequate Cardiopulmonary Status: stable Mental Status/LOC: patient returned to baseline Post-Anesthesia Complications: none Follow-up care needed: N/A CEE MARTIN CRNA Jun 04, 2017 11:10
--- NOTE | 2017-06-04 16:30 | Procedure Note ---
DATE OF PROCEDURE: 06/04/2017 SURGEON: Willy Eldridge M.D. PROCEDURE: Upper endoscopy with dilatation and biopsy. ANESTHESIA: Per AUTOMOTIVE PAINT TECHNICIAN, Lexi Sanchez. INSTRUMENT: Olympus adult flexible upper endoscope. INDICATION: Esophageal stricture and dysphagia. The procedure, risks, benefits, and possible consequences, including hemorrhage, aspiration, perforation and infection, and alternative treatments, were explained to the patient/legal guardian by Dr. Willy Eldridge and the patient/legal guardian understood and accepted these risks. DESCRIPTION OF PROCEDURE: After informed consent was obtained and the patient was adequately sedated, Olympus upper endoscope was advanced from mouth into the esophagus. We encountered a narrow stricture at the distal esophagus. At this time, we started our balloon dilatation, started with 8, 9, 10, and 11 balloon initially, which was easily dilated to 10. There was a little bit of tear at the dilation area, but still could not pass the upper scope. So, we switched to 10, 11, and 12 balloon dilatation. We dilated up to about 12. After that, we were able to pass the scope through. The patient had in the body of the stomach numerous polyps, most probably fundic gland polyps. The patient also had some gastritis. Random biopsy from antrum was obtained. Retroflexion in the stomach showed evidence of about 5 cm hiatal hernia from 35 to 40 cm. At this time, the upper endoscope was retrieved and the procedure was terminated. SUMMARY OF FINDINGS: 1. Tight distal esophageal stricture status post serial balloon dilatation up to about 12 mm. See above for details. 2. A 5 cm hiatal hernia from 35 to 40 cm. 3. Multiple gastric polyps, most probably fundic gland polyps. 4. Gastritis, status post biopsy. RECOMMENDATIONS: Follow up biopsies and treat accordingly. Willy Eldridge M.D. DR: SILVIA JOB#: [id number] CC:
== END 2017-06-04 12:45 | disposition home or self-care (01) ==
LOC: GAS 08:13
DX: K22.2 Esophageal obstruction (principal); R13.10 Dysphagia, unspecified; K44.9 Diaphragmatic hernia without obstruction or gangrene; K31.7 Polyp of stomach and duodenum; K29.50 Unspecified chronic gastritis without bleeding; I10 Essential (primary) hypertension; D64.9 Anemia, unspecified; F20.9 Schizophrenia, unspecified; F32.9 Major depressive disorder, single episode, unspecified; F41.9 Anxiety disorder, unspecified; Z85.038 Personal history of other malignant neoplasm of large intestine; Z79.899 Other long term (current) drug therapy; Z88.0 Allergy status to penicillin
CPT/HCPCS: 36415; 43239; 43249; 80053; 82150; 82378; 82962; 83690; 85025; 86301; 93005; J2704; J7120; 94003; 94150

== ENCOUNTER 2017-06-15 09:58 | Outpatient (CLI) | payer MEDICARE, MEDICAID ==
[2017-06-15 10:15] VITALS: BP 150/86
[2017-06-15 10:20] VITALS: BP 150/86
--- NOTE | 2017-06-15 10:39 | GI Progress Note ---
Assessment/Plan Problems: (1) Colon cancer ICD Codes: C18.9 - Malignant neoplasm of colon, unspecified SNOMED: 814286981 (2) Liver lesion ICD Codes: K76.9 - Liver disease, unspecified SNOMED: 544766183 (3) Esophageal stricture ICD Codes: K22.2 - Esophageal obstruction SNOMED: 22716983 (4) Anemia ICD Codes: D64.9 - Anemia, unspecified SNOMED: 402098334 (5) Dysphagia ICD Codes: R13.10 - Dysphagia, unspecified SNOMED: 79504987, 882885543 (6) Ulcerative colitis ICD Codes: K51.90 - Ulcerative colitis, unspecified, without complications SNOMED: 31389528 Status: stable Status Narrative Seen with Dr. Eldridge. Assessment/Plan PET scan reviewed with patient >> colon CA with met pt referred to oncologist >> Dr. Guzman needs to s/w POA The patient was seen and examined at bedside and all new and available data was reviewed in the patients chart. I agree with the above findings, impression and plan. (Patient seen earlier today. Signature stamp does not reflect patient encounter time.). -Willy Eldridge MD Subjective Gastrointestinal/Abdominal: Reports: no symptoms Objective Last 24 Hour Vital Signs Date Time Temp Pulse Resp B/P Pulse Ox O2 Delivery O2 Flow Rate FiO2 06/15/17 10:20 98.0 71 16 150/86 General Appearance: no apparent distress, alert Cardiovascular: normal rate Respiratory/Chest: normal breath sounds, no respiratory distress Abdominal Exam: normal bowel sounds, non tender, soft Extremities: normal range of motion Objective Endoscopy Procedure Note Indication for Procedure: dysphagia Procedures Performed: EGD with dilatation Operative Findings/Diagnosis: esoph stricture WILLY ELDRIDGE - Jun 04, 2017 10:50 Endoscopy Procedure Note Indication for Procedure: colitis, anemia Procedures Performed: EGD, colonoscopy Operative Findings/Diagnosis: esoph stricture, ?colon mass WILLY ELDRIDGE - May 07, 2017 11:20 Julianna Nguyen N.PGlynn Jun 15, 2017 10:39 WILLY ELDRIDGE Jun 16, 2017 07:50
== END 2017-06-15 10:45 | disposition home or self-care (01) ==
LOC: PAN 09:58
DX: K51.90 Ulcerative colitis, unspecified, without complications (principal); R13.10 Dysphagia, unspecified; D64.9 Anemia, unspecified; K22.2 Esophageal obstruction; K76.9 Liver disease, unspecified; C18.9 Malignant neoplasm of colon, unspecified
CPT/HCPCS: 99211

== ENCOUNTER 2017-06-15 19:11 | Inpatient (IN) | payer MEDICARE, MEDICAID ==
[~2017-06-15] VITALS: Ht 165.1 cm; Wt 68.0 kg
[2017-06-15] MEDS ORDERED: Metoclopramide 10mg/2ml Inj IVP ONE (19:45)
[2017-06-15 20:41] LABS: BASOPHILS % (AUTO) 1.3 % (0.0-2.0); EOSINOPHILS % (AUTO) 4.9 % (0.0-3.0); LYMPHOCYTES % (AUTO) 26.6 % (20.0-45.0); MEAN CORPUSCULAR HEMOGLOBIN 28.1 PG (27.0-31.0); MEAN CORPUSCULAR HGB CONC 32.4 G/DL (32.0-36.0); MEAN CORPUSCULAR VOLUME 87 FL (80-99); MONOCYTES % (AUTO) 9.4 % (1.0-10.0); NEUTROPHILS % (AUTO) 57.7 % (45.0-75.0); PLATELET COUNT 192 K/UL (150-450); RED BLOOD COUNT 4.23 M/UL (4.20-5.40); RED CELL DISTRIBUTION WIDTH 15.2 % (11.6-14.8)
[2017-06-15 20:43] VITALS: BP 156/91
[2017-06-15 21:00] LABS: ALANINE AMINOTRANSFERASE 12 U/L (3-33); ALBUMIN/GLOBULIN RATIO 1.3 (1.0-2.7); ANION GAP 12 (5-15); ASPARTATE AMINO TRANSFERASE 21 U/L (5-40); CALCIUM 9.8 mg/dL (8.6-10.2); CARBON DIOXIDE 29 mEQ/L (20-30); CHLORIDE 101 mEQ/L (98-107); CREATININE 1.3 mg/dL (0.5-0.9); HEMOLYSIS 50; LIPASE 33 U/L (< 60); POTASSIUM 4.2 mEQ/L (3.4-4.9); SODIUM 142 mEQ/L (135-145); TOTAL PROTEIN 6.7 g/dL (6.6-8.7)
[2017-06-15 21:19] LABS: APPEARANCE,URINE CLEAR; KETONES,URINE NEGATIVE (NEGATIVE); LEUKOCYTE ESTERASE ,URINE 2+ (NEGATIVE); NITRITE,URINE NEGATIVE (NEGATIVE); PH,URINE 6.5 (4.5-8.0); PROTEIN,URINE NEGATIVE (NEGATIVE); UROBILINOGEN,URINE NORMAL MG/DL (0.0-1.0)
[2017-06-15 21:35] LABS: RBC,URINE 0-2 /HPF (0 - 2); SQUAMOUS EPITHELIAL CELL,UR OCCASIONAL /LPF (NONE/OCC); WBC,URINE 0-2 /HPF (0 - 2)
[2017-06-15 21:36] LABS: BACTERIA,URINE OCCASIONAL /HPF
[2017-06-15] MEDS ORDERED: Miralax 17gm pkt ORAL PRN (23:15)
[2017-06-15] MEDS ORDERED: Nitroglycerin Subl 0.4mg tab (Bottle Of 25) SL PRN (23:15)
[2017-06-15] MEDS ORDERED: Morphine Sulfate 2mg/ml Inj IVP PRN (23:15)
[2017-06-15] MEDS ORDERED: Mylanta II UD 30ml ORAL PRN (23:15)
[2017-06-15] MEDS ORDERED: LORazepam Inj 2mg/ml 1ml IV PRN (23:15)
[2017-06-15] MEDS ORDERED: Metoclopramide 10mg/2ml Inj IVP PRN (23:15)
--- NOTE | 2017-06-15 23:52 | Emergency Room Report ---
History of Present Illness General Chief Complaint: Vomiting Source: Patient, Medical Record Present Illness HPI Patient is a 72-year-old female presented after increased vomiting and abdominal pain. Patient gradual onset of symptoms. Patient was noted to have prior history of recently diagnosed cancer. Patient was noted to have a previous auscultation for left breast mass. She had not been having any fever. As reported vomiting foodstuff. She reported having prior history of colon cancer. She denied hematemesis or bloody stools. Patient prior history of ulcerative colitis. Allergies: Coded Allergies: PENICILLINS (Verified Adverse Reaction, Severe, "passed out", 05/07/17) Patient History Past Medical History: see triage record Last Menstrual Period: NONE Reviewed Nursing Documentation: PMH: Agreed, PSxH: Agreed Nursing Documentation-PMH Hx Hypertension: Yes Hx Cerebrovascular Accident: Yes - 5 years ago Review of Systems All Other Systems: negative except mentioned in HPI Physical Exam Vital Signs Date Time Temp Pulse Resp B/P Pulse Ox O2 Delivery O2 Flow Rate FiO2 06/15/17 19:09 97.9 94 19 169/93 95 Room Air Sp02 EP Interpretation: reviewed, normal General Appearance: normal inspection, well appearing, no apparent distress, alert Head: atraumatic ENT: normal ENT inspection, hearing grossly normal, normal voice Neck: normal inspection, full range of motion, supple, no bony tend Respiratory: normal inspection, lungs clear, normal breath sounds, no respiratory distress, no retraction, no wheezing Cardiovascular #1: regular rate, rhythm, no edema Gastrointestinal: normal inspection, normal bowel sounds, non tender, soft, no guarding, no hernia Genitourinary: no CVA tenderness Musculoskeletal: normal inspection, back normal, normal range of motion Neurologic: normal inspection, alert, oriented x3, responsive, speech normal Psychiatric: normal inspection, judgement/insight normal, mood/affect normal Skin: normal inspection, normal color, no rash Medical Decision Making Diagnostic Impression: Primary Impression: Anemia Additional Impressions: Liver lesion Colon cancer ER Course Patient presented for abdominal pain. Differential diagnoses included ischemic bowel, appendicitis, perforated viscus, abdominal aortic aneurysm, inferior myocardial infarction, viral gastroenteritis Because of complexity of patient's case laboratory testing and imaging studies were ordered. Laboratory testing showed unremarkable. Patient noted have symptoms consistent with increase pain related to tumor. She may have some underlying esophageal obstruction. Dr. Janelle Renee was contacted for inpatient management Labs Test 06/15/17 20:10 06/15/17 20:50 White Blood Count 8.0 K/UL (4.8-10.8) Red Blood Count 4.23 M/UL (4.20-5.40) Hemoglobin 11.9 G/DL (12.0-16.0) Hematocrit 36.8 % (37.0-47.0) Mean Corpuscular Volume 87 FL (80-99) Mean Corpuscular Hemoglobin 28.1 PG (27.0-31.0) Mean Corpuscular Hemoglobin Concent 32.4 G/DL (32.0-36.0) Red Cell Distribution Width 15.2 % (11.6-14.8) Platelet Count 192 K/UL (150-450) Mean Platelet Volume 6.0 FL (6.5-10.1) Neutrophils (%) (Auto) 57.7 % (45.0-75.0) Lymphocytes (%) (Auto) 26.6 % (20.0-45.0) Monocytes (%) (Auto) 9.4 % (1.0-10.0) Eosinophils (%) (Auto) 4.9 % (0.0-3.0) Basophils (%) (Auto) 1.3 % (0.0-2.0) Sodium Level 142 mEQ/L (135-145) Potassium Level 4.2 mEQ/L (3.4-4.9) Chloride Level 101 mEQ/L (98-107) Carbon Dioxide Level 29 mEQ/L (20-30) Anion Gap 12 (5-15) Blood Urea Nitrogen 19 mg/dL (7-23) Creatinine 1.3 mg/dL (0.5-0.9) Estimat Glomerular Filtration Rate mL/min (>60) Glucose Level 156 mg/dL (74-106) Calcium Level 9.8 mg/dL (8.6-10.2) Total Bilirubin < 0.2 mg/dL (0.0-1.2) Aspartate Amino Transf (AST/SGOT) 21 U/L (5-40) Alanine Aminotransferase (ALT/SGPT) 12 U/L (3-33) Alkaline Phosphatase 78 U/L (35-104) Total Protein 6.7 g/dL (6.6-8.7) Albumin 3.8 g/dL (3.5-5.2) Globulin 2.9 g/dL Albumin/Globulin Ratio 1.3 (1.0-2.7) Lipase 33 U/L (< 60) Urine Color Pale yellow Urine Appearance Clear Urine pH 6.5 (4.5-8.0) Urine Specific [place] 1.005 (1.005-1.035) Urine Protein Negative (NEGATIVE) Urine Glucose (UA) Negative (NEGATIVE) Urine Ketones Negative (NEGATIVE) Urine Occult Blood Negative (NEGATIVE) Urine Nitrite Negative (NEGATIVE) Urine Bilirubin Negative (NEGATIVE) Urine Urobilinogen Normal MG/DL (0.0-1.0) Urine Leukocyte Esterase 2+ (NEGATIVE) Urine RBC 0-2 /HPF (0 - 2) Urine WBC 0-2 /HPF (0 - 2) Urine Squamous Epithelial Cells Occasional /LPF Urine Bacteria Occasional /HPF (NONE) Last Vital Signs Date Time Temp Pulse Resp B/P Pulse Ox O2 Delivery O2 Flow Rate FiO2 06/15/17 23:19 86 16 162/91 98 Room Air 06/15/17 19:09 97.9 Status: unchanged Disposition: ADMITTED INPATIENT Condition: Serious Referrals: JANELLE RENEE (PCP) Bubba Gandhi Jun 15, 2017 23:52
[2017-06-16] VITALS: BP 169/97
[2017-06-16] MEDS: D5 1/2NS 1,000 ML IV SCH ×3 (00:26→20:59)
[2017-06-16 04:00] VITALS: BP 131/76
[2017-06-16 07:32] LABS: EOSINOPHILS % (AUTO) 6.2 % (0.0-3.0); LYMPHOCYTES % (AUTO) 27.2 % (20.0-45.0); MEAN CORPUSCULAR HEMOGLOBIN 28.5 PG (27.0-31.0); MEAN CORPUSCULAR VOLUME 86 FL (80-99); MEAN PLATELET VOLUME 5.4 FL (6.5-10.1); NEUTROPHILS % (AUTO) 55.6 % (45.0-75.0); PLATELET COUNT 169 K/UL (150-450); RED BLOOD COUNT 4.04 M/UL (4.20-5.40); RED CELL DISTRIBUTION WIDTH 15.2 % (11.6-14.8); WHITE BLOOD COUNT 6.5 K/UL (4.8-10.8)
[2017-06-16 07:41] LABS: ALANINE AMINOTRANSFERASE 9 U/L (3-33); ALBUMIN/GLOBULIN RATIO 1.3 (1.0-2.7); AMYLASE 99 U/L (10-110); ANION GAP 9 (5-15); ASPARTATE AMINO TRANSFERASE 18 U/L (5-40); CALCIUM 9.1 mg/dL (8.6-10.2); CARBON DIOXIDE 26 mEQ/L (20-30); CHLORIDE 106 mEQ/L (98-107); CREATININE 1.2 mg/dL (0.5-0.9); HEMOLYSIS 41; LIPASE 25 U/L (< 60); POTASSIUM 3.9 mEQ/L (3.4-4.9); SODIUM 141 mEQ/L (135-145)
[2017-06-16 07:55] VITALS: BP 145/88
--- NOTE | 2017-06-16 09:42 | Diagnostic Imaging Report ---
Clinical Indication: Abdominal pain and vomiting Technique: No oral contrast utilized, per emergency room physician request IV administration nonionic contrast. Venous phase spiral acquisition obtained through the abdomen and pelvis. Multiplanar reconstructions were generated. Total dose length product 971 mGycm. CTDIvol(s) 19 mGy. Dose reduction achieved using automated exposure control Comparison: 05/19/2017 noncontrast study Findings: Lack of enteric contrast limits assessment. Again demonstrated is a 5.3 x 2.5 cm fluid collection within or adjacent to the rectus abdominis tendon. This is unchanged in size. It demonstrates rim enhancement, no significant inflammation of the surrounding fat. The appendix is normal. There is colonic. Mild stranding of the fat at the junction of the sigmoid and descending colon is unchanged from the earlier study. No new evidence of diverticulitis. There are a few mildly thickwalled mildly fluid-filled small bowel loops now present. No free or loculated intraperitoneal air or fluid. Previously demonstrated gastric fundal thickening is not clearly evident currently has no oral contrast was provided. The distal esophagus and duodenum are unremarkable.. Within segment 5 of the liver, there is a hypoattenuating 4.5 cm mass. This was also demonstrated previously. Other smaller similar appearing masses are demonstrated. One of these is in posterior medial segment 7, better demonstrated on the current contrast images. One is in lateral aspect of segment, and another within segment 4A. One or 2 low-attenuation lesions are seen in segment 1. There are also scattered subcentimeter low-attenuation lesions which are too small to characterize, possibly bile hamartomas or cysts. The gallbladder is unremarkable. No biliary ductal dilatation. The pancreas is unremarkable. Subcentimeter low-attenuation lesions are seen within the spleen. The adrenals are unremarkable. The right kidney demonstrates an exophytic lesion in the anteromedial upper pole which demonstrates equivocal slight enhancement as compared to the previous study. There is and anterior contour bulge that measures 2.7 cm diameter, without discrete margins. There are multiple subcentimeter right renal low-attenuation lesions. There is a water density cyst in the lower pole. The left kidney demonstrates an exophytic soft tissue attenuation lesion in the interpolar region which demonstrates only slight enhancement as compared to the previous noncontrast study. There are multiple water density cysts, as well as multiple subcentimeter low-attenuation lesions. Again demonstrated is a 2.4 cm left ovarian cyst. No other pelvic mass or adenopathy demonstrated. The included lung bases demonstrate posterior dependent atelectatic changes. There are degenerative changes of the lumbar spine again demonstrated. Impression: Colonic diverticulosis. Persistent slight infiltration of the pericolonic fat at the junction of the distal descending and proximal sigmoid colon, unchanged from previous study. This could represent persistent acute diverticulitis, versus chronic changes. Underlying neoplasm less likely but not completely excludable Anterior midline incisional fluid collection, unchanged from the prior study. Infected fluid collection not excludable. Correlate with clinical findings, consider aspiration if clinically indicated Equivocal minimal scattered areas of small bowel fluid and small bowel wall thickening, could indicate mild enteritis changes. Multiple hepatic masses, suspicious for metastases Other subcentimeter low-attenuation liver lesions, too small to characterize, most likely benign cysts or bile hamartomas: Any these could represent a metastatic deposit Right renal contour bulge again demonstrated, without discrete margins. Suspect that this just represents a focal contour abnormality, but solid mass not completely excludable. Other nonspec -- ific renal masses. Suspect that these represent proteinaceous cysts, but any of these could represent a solid renal neoplasm. There are also bilateral renal cysts, as well as bilateral subcentimeter low-attenuation renal lesions which are too small to characterize, most likely benign simple cysts. No further followup necessary Nonspecific splenic hypoattenuating lesions left ovarian cyst again demonstrated Previously questioned gastric fundal lesion is not clearly evident as no oral contrast was given and the stomach is nondistended Other findings as noted, including degenerative spondylosis, dependent posterior pulmonary atelectatic changes. This agrees with the preliminary interpretation provided overnight by [facility] teleradiology service. The CT scanner at [facility] is accredited by the [employer] and the scans are performed using protocols designed to limit radiation exposure to as low as reasonably achievable to attain images of sufficient resolution adequate for diagnostic evaluation.
[2017-06-16] MEDS: Pantoprazole Inj IV SCH (10:03)
[2017-06-16] MEDS: Heparin 5000 units/ml inj SUBQ SCH ×2 (10:04→21:08)
[2017-06-16 11:39] VITALS: BP 144/85
--- NOTE | 2017-06-16 11:39 | GI Initial Consult Note ---
History of Present Illness General Date patient seen: Jun 16, 2017 Time patient seen: 10:00 Reason for Hospitalization: Vomiting Referring physician: JANELLE RENEE Reason for Consultation: VOMITTING Present Illness HPI Patient is a 72-year-old female presented after increased vomiting and abdominal pain. Patient gradual onset of symptoms. Patient was noted to have prior history of recently diagnosed cancer. Patient was noted to have a previous auscultation for left breast mass. She had not been having any fever. As reported vomiting foodstuff. She reported having prior history of colon cancer. She denied hematemesis or bloody stools. Patient prior history of ulcerative colitis. GI Consult. HPI as noted above. GI consulted for abdominal pain and vomiting. Pt was seen yesterday in clinic where we revealed a PET scan that show colon CA with met. She presents today with hx of esophageal stricture, colon mass and anemia. Home Meds Reported Medications Acetaminophen* (ACETAMINOPHEN 325MG TABLET*) 325 Mg Tablet, 650 MG ORAL Q4H Y for Pain Scale (3-5), TAB 05/20/17 Bisacodyl (DULCOLAX) 10 Mg Supp.rect, 10 MG RC PRN, SUPP 05/20/17 Lisinopril* (ZESTRIL*) 10 Mg Tablet, 10 MG ORAL DAILY, TAB 04/13/17 Sennosides (SENNA LAX) 8.6 Mg Tablet, 17.2 MG PO HS, TAB 04/13/17 Mirtazapine* (REMERON*) 15 Mg Tablet, 7.5 MG ORAL BEDTIME, TAB 04/13/17 Pantoprazole* (PROTONIX*) 40 Mg Tablet.dr, 40 MG ORAL DAILY, TAB 04/13/17 Memantine Hcl* (NAMENDA*) 10 Mg Tablet, 10 MG ORAL BID, TAB 04/13/17 Magnesium Hydroxide* (MILK OF MAGNESIA*) 400 Mg/5 Ml Oral.susp, 30 ML ORAL DAILY , ML 04/13/17 Hydralazine Hcl* (HYDRALAZINE HCL*) 25 Mg Tablet, 25 MG ORAL EVERY 8 HOURS, TAB 0 Refills 04/13/17 Na Phos,M-B/Na Phos,Di-Ba* (FLEET ENEMA*) 133 Ml Enema, 133 ML RECTAL DAILY, ML 0 Refills 04/13/17 Ferrous Sulfate (IRON) 325 Mg Tablet, 325 MG PO DAILY, TAB 04/13/17 Docusate Sodium* (COLACE*) 100 Mg Capsule, 100 MG ORAL DAILY, CAP 04/13/17 Carvedilol (Coreg) 6.25 Mg Tablet, 6.25 MG ORAL EVERY 12 HOURS, TAB 04/13/17 Clonidine Hcl* (CATAPRES*) 0.1 Mg Tablet, 0.1 MG ORAL Q12HR Y for For High Blood Pressure, #90 TAB 0 Refills 04/13/17 Asenapine Maleate (SAPHRIS) 5 Mg Tab.subl, 5 MG SL BID, TAB 04/13/17 Med list reviewed/reconciled: Yes Allergies: Coded Allergies: PENICILLINS (Verified Adverse Reaction, Severe, "passed out", 05/07/17) Patient History PMH Narrative Past Medical History: see triage record Last Menstrual Period: NONE Reviewed Nursing Documentation: PMH: Agreed, PSxH: Agreed Nursing Documentation-PMH Hx Hypertension: Yes Hx Cerebrovascular Accident: Yes - 5 years ago Review of Systems All Other Systems: negative except mentioned in HPI Physical Exam Vital Signs Date Time Temp Pulse Resp B/P Pulse Ox O2 Delivery O2 Flow Rate FiO2 06/15/17 19:09 97.9 94 19 169/93 95 Room Air Sp02 EP Interpretation: reviewed Labs Laboratory Tests Test 06/15/17 20:10 06/15/17 20:50 06/16/17 06:10 White Blood Count 8.0 K/UL (4.8-10.8) 6.5 K/UL (4.8-10.8) Red Blood Count 4.23 M/UL (4.20-5.40) 4.04 M/UL (4.20-5.40) L Hemoglobin 11.9 G/DL (12.0-16.0) L 11.5 G/DL (12.0-16.0) L Hematocrit 36.8 % (37.0-47.0) L 34.9 % (37.0-47.0) L Mean Corpuscular Volume 87 FL (80-99) 86 FL (80-99) Mean Corpuscular Hemoglobin 28.1 PG (27.0-31.0) 28.5 PG (27.0-31.0) Mean Corpuscular Hemoglobin Concent 32.4 G/DL (32.0-36.0) 33.0 G/DL (32.0-36.0) Red Cell Distribution Width 15.2 % (11.6-14.8) H 15.2 % (11.6-14.8) H Platelet Count 192 K/UL (150-450) 169 K/UL (150-450) Mean Platelet Volume 6.0 FL (6.5-10.1) L 5.4 FL (6.5-10.1) L Neutrophils (%) (Auto) 57.7 % (45.0-75.0) 55.6 % (45.0-75.0) Lymphocytes (%) (Auto) 26.6 % (20.0-45.0) 27.2 % (20.0-45.0) Monocytes (%) (Auto) 9.4 % (1.0-10.0) 10.0 % (1.0-10.0) Eosinophils (%) (Auto) 4.9 % (0.0-3.0) H 6.2 % (0.0-3.0) H Basophils (%) (Auto) 1.3 % (0.0-2.0) 1.0 % (0.0-2.0) Sodium Level 142 mEQ/L (135-145) 141 mEQ/L (135-145) Potassium Level 4.2 mEQ/L (3.4-4.9) 3.9 mEQ/L (3.4-4.9) Chloride Level 101 mEQ/L (98-107) 106 mEQ/L (98-107) Carbon Dioxide Level 29 mEQ/L (20-30) 26 mEQ/L (20-30) Anion Gap 12 (5-15) 9 (5-15) Blood Urea Nitrogen 19 mg/dL (7-23) 16 mg/dL (7-23) Creatinine 1.3 mg/dL (0.5-0.9) H 1.2 mg/dL (0.5-0.9) H Estimat Glomerular Filtration Rate mL/min (>60) mL/min (>60) Glucose Level 156 mg/dL (74-106) H 104 mg/dL (74-106) Calcium Level 9.8 mg/dL (8.6-10.2) 9.1 mg/dL (8.6-10.2) Total Bilirubin < 0.2 mg/dL (0.0-1.2) 0.2 mg/dL (0.0-1.2) Aspartate Amino Transf (AST/SGOT) 21 U/L (5-40) 18 U/L (5-40) Alanine Aminotransferase (ALT/SGPT) 12 U/L (3-33) 9 U/L (3-33) Alkaline Phosphatase 78 U/L (35-104) 64 U/L (35-104) Total Protein 6.7 g/dL (6.6-8.7) 6.0 g/dL (6.6-8.7) L Albumin 3.8 g/dL (3.5-5.2) 3.4 g/dL (3.5-5.2) L Globulin 2.9 g/dL 2.6 g/dL Albumin/Globulin Ratio 1.3 (1.0-2.7) 1.3 (1.0-2.7) Lipase 33 U/L (< 60) 25 U/L (< 60) Urine Color Pale yellow Urine Appearance Clear Urine pH 6.5 (4.5-8.0) Urine Specific [place] 1.005 (1.005-1.035) Urine Protein Negative (NEGATIVE) Urine Glucose (UA) Negative (NEGATIVE) Urine Ketones Negative (NEGATIVE) Urine Occult Blood Negative (NEGATIVE) Urine Nitrite Negative (NEGATIVE) Urine Bilirubin Negative (NEGATIVE) Urine Urobilinogen Normal MG/DL (0.0-1.0) Urine Leukocyte Esterase 2+ (NEGATIVE) H Urine RBC 0-2 /HPF (0 - 2) Urine WBC 0-2 /HPF (0 - 2) Urine Squamous Epithelial Cells Occasional /LPF Urine Bacteria Occasional /HPF (NONE) Activated Partial Thromboplast Time 25 SEC (23-33) Amylase Level 99 U/L (10-110) Carcinoembryonic Antigen 33.9 ng/mL H CA 19-9 Antigen 128.1 U/mL (< 37) H General Appearance: well appearing, no apparent distress, alert Head: normocephalic EENT: normal ENT inspection Neck: supple Respiratory: normal breath sounds Cardiovascular: normal rate Gastrointestinal: normal inspection, non tender, soft Rectal: deferred Neurologic: normal inspection, alert, oriented x3, responsive Psychiatric: normal inspection, judgement/insight normal, memory normal Skin: normal color Lymphatic: normal inspection, no adenopathy Current Medications Current Medications Medications (Trade) Dose Ordered Sig/Leonardo Route PRN Reason Start Time Stop Time Status Last Admin Dose Admin Acetaminophen (Tylenol) 650 mg Q4H PRN ORAL fever 06/15/17 23:15 07/15/17 23:14 Al Hydroxide/Mg Hydroxide (Mylanta II) 30 ml Q6H PRN ORAL dyspepsia 06/15/17 23:15 07/15/17 23:14 Dextrose (Dextrose 50%) STAT PRN IV Hypoglycemia 06/15/17 23:15 07/15/17 23:14 Dextrose/Sodium Chloride (D5 0.45% NS) 1,000 ml @ 75 mls/hr [id number] IV 06/15/17 17:40 07/15/17 17:39 06/16/17 00:26 Diphenhydramine HCl (Benadryl) 25 mg Q6H PRN ORAL Itching/Pruritis 06/15/17 23:15 07/15/17 23:14 Heparin Sodium (Porcine) (Heparin 5000 units/ml) 5,000 units EVERY 12 HOURS SUBQ 06/16/17 09:00 07/16/17 08:59 06/16/17 10:04 Lorazepam (Ativan 2mg/ml 1ml) 1 mg Q4H PRN IV agitation 06/15/17 23:15 06/22/17 23:14 Metoclopramide HCl (Reglan) 5 mg Q6H PRN IVP servere nauasea 06/15/17 23:15 07/15/17 23:14 Morphine Sulfate (Morphine Sulfate) 2 mg Q4H PRN IVP severe Pain (Pain Scale 7-10) 06/15/17 23:15 06/22/17 23:14 Nitroglycerin (Ntg) 0.4 mg Q5M X 3 DOSES PRN SL Prn Chest Pain 06/15/17 23:15 07/15/17 23:14 Ondansetron HCl (Zofran) 4 mg Q6H PRN IVP Nausea & Vomiting 06/15/17 23:15 07/15/17 23:14 Pantoprazole (Protonix) 40 mg DAILY IV 06/16/17 09:00 07/16/17 08:59 06/16/17 10:03 Polyethylene Glycol (Miralax) 17 gm HSPRN PRN ORAL Constipation 06/15/17 23:15 07/15/17 23:14 Promethazine HCl (Phenergan) 25 mg Q8H PRN IV refractory nausea 06/15/17 23:15 07/15/17 23:14 Temazepam (Restoril) 15 mg HSPRN PRN ORAL Insomnia 06/15/17 23:15 06/22/17 23:14 GI: Plan Problems: (1) Colon cancer (2) Esophageal stricture (3) Dysphagia (4) Ulcerative colitis (5) Schizophrenia (6) Liver lesion Plan PET scan reviewed with patient >> colon CA with met pt requires Oncology consult, needs to s/w POA symptomatic treatment at this time adv diet as tolerated zofran prn ppi IV hydration + electrolyte replacement fu labs Discussed with Dr. Eldridge. Thank you for referring this patient, we will follow. Julianna Nguyen N.P. Jun 16, 2017 11:39
--- NOTE | 2017-06-16 14:49 | Infectious Diseases Prog Note ---
Assessment/Plan Problems: (1) Acute diverticulitis Assessment & Plan: will send stool for C. diff, and culture, will start levaquin and flagyl empirically (2) Colon cancer Assessment & Plan: Gi is following, recommend oncology eval (3) Liver lesion Assessment & Plan: suspect mets, due to GI malignancy, recommend oncology eval (4) Ulcerative colitis Assessment & Plan: GI is following , continue meds Subjective Allergies: Coded Allergies: PENICILLINS (Verified Adverse Reaction, Severe, "passed out", 05/07/17) Objective Vital Signs Last 24 Hour Vital Signs Date Time Temp Pulse Resp B/P Pulse Ox O2 Delivery O2 Flow Rate FiO2 06/16/17 11:39 97.5 66 19 144/85 97 Room Air 06/16/17 07:55 97.2 67 19 145/88 100 Room Air 06/16/17 04:00 96.8 69 18 131/76 98 Room Air 06/16/17 00:00 96.1 86 20 169/97 100 Room Air 06/15/17 23:19 86 16 162/91 98 Room Air 06/15/17 20:43 94 13 156/91 100 Room Air 06/15/17 19:09 97.9 94 19 169/93 95 Room Air Height (Feet): 5 Height (Inches): 5.00 Weight (Pounds): 150 Laboratory Tests Test 06/15/17 20:10 06/15/17 20:50 06/16/17 06:10 White Blood Count 8.0 K/UL (4.8-10.8) 6.5 K/UL (4.8-10.8) Red Blood Count 4.23 M/UL (4.20-5.40) 4.04 M/UL (4.20-5.40) L Hemoglobin 11.9 G/DL (12.0-16.0) L 11.5 G/DL (12.0-16.0) L Hematocrit 36.8 % (37.0-47.0) L 34.9 % (37.0-47.0) L Mean Corpuscular Volume 87 FL (80-99) 86 FL (80-99) Mean Corpuscular Hemoglobin 28.1 PG (27.0-31.0) 28.5 PG (27.0-31.0) Mean Corpuscular Hemoglobin Concent 32.4 G/DL (32.0-36.0) 33.0 G/DL (32.0-36.0) Red Cell Distribution Width 15.2 % (11.6-14.8) H 15.2 % (11.6-14.8) H Platelet Count 192 K/UL (150-450) 169 K/UL (150-450) Mean Platelet Volume 6.0 FL (6.5-10.1) L 5.4 FL (6.5-10.1) L Neutrophils (%) (Auto) 57.7 % (45.0-75.0) 55.6 % (45.0-75.0) Lymphocytes (%) (Auto) 26.6 % (20.0-45.0) 27.2 % (20.0-45.0) Monocytes (%) (Auto) 9.4 % (1.0-10.0) 10.0 % (1.0-10.0) Eosinophils (%) (Auto) 4.9 % (0.0-3.0) H 6.2 % (0.0-3.0) H Basophils (%) (Auto) 1.3 % (0.0-2.0) 1.0 % (0.0-2.0) Sodium Level 142 mEQ/L (135-145) 141 mEQ/L (135-145) Potassium Level 4.2 mEQ/L (3.4-4.9) 3.9 mEQ/L (3.4-4.9) Chloride Level 101 mEQ/L (98-107) 106 mEQ/L (98-107) Carbon Dioxide Level 29 mEQ/L (20-30) 26 mEQ/L (20-30) Anion Gap 12 (5-15) 9 (5-15) Blood Urea Nitrogen 19 mg/dL (7-23) 16 mg/dL (7-23) Creatinine 1.3 mg/dL (0.5-0.9) H 1.2 mg/dL (0.5-0.9) H Estimat Glomerular Filtration Rate mL/min (>60) mL/min (>60) Glucose Level 156 mg/dL (74-106) H 104 mg/dL (74-106) Calcium Level 9.8 mg/dL (8.6-10.2) 9.1 mg/dL (8.6-10.2) Total Bilirubin < 0.2 mg/dL (0.0-1.2) 0.2 mg/dL (0.0-1.2) Aspartate Amino Transf (AST/SGOT) 21 U/L (5-40) 18 U/L (5-40) Alanine Aminotransferase (ALT/SGPT) 12 U/L (3-33) 9 U/L (3-33) Alkaline Phosphatase 78 U/L (35-104) 64 U/L (35-104) Total Protein 6.7 g/dL (6.6-8.7) 6.0 g/dL (6.6-8.7) L Albumin 3.8 g/dL (3.5-5.2) 3.4 g/dL (3.5-5.2) L Globulin 2.9 g/dL 2.6 g/dL Albumin/Globulin Ratio 1.3 (1.0-2.7) 1.3 (1.0-2.7) Lipase 33 U/L (< 60) 25 U/L (< 60) Urine Color Pale yellow Urine Appearance Clear Urine pH 6.5 (4.5-8.0) Urine Specific [place] 1.005 (1.005-1.035) Urine Protein Negative (NEGATIVE) Urine Glucose (UA) Negative (NEGATIVE) Urine Ketones Negative (NEGATIVE) Urine Occult Blood Negative (NEGATIVE) Urine Nitrite Negative (NEGATIVE) Urine Bilirubin Negative (NEGATIVE) Urine Urobilinogen Normal MG/DL (0.0-1.0) Urine Leukocyte Esterase 2+ (NEGATIVE) H Urine RBC 0-2 /HPF (0 - 2) Urine WBC 0-2 /HPF (0 - 2) Urine Squamous Epithelial Cells Occasional /LPF Urine Bacteria Occasional /HPF (NONE) Activated Partial Thromboplast Time 25 SEC (23-33) Amylase Level 99 U/L (10-110) Carcinoembryonic Antigen 33.9 ng/mL H CA 19-9 Antigen 128.1 U/mL (< 37) H Current Medications Medications (Trade) Dose Ordered Sig/Leonardo Route PRN Reason Start Time Stop Time Status Last Admin Dose Admin Acetaminophen (Tylenol) 650 mg Q4H PRN ORAL fever 06/15/17 23:15 07/15/17 23:14 Al Hydroxide/Mg Hydroxide (Mylanta II) 30 ml Q6H PRN ORAL dyspepsia 06/15/17 23:15 07/15/17 23:14 Dextrose (Dextrose 50%) STAT PRN IV Hypoglycemia 06/15/17 23:15 07/15/17 23:14 Dextrose/Sodium Chloride (D5 0.45% NS) 1,000 ml @ 75 mls/hr [id number] IV 06/15/17 17:40 07/15/17 17:39 06/16/17 00:26 Diphenhydramine HCl (Benadryl) 25 mg Q6H PRN ORAL Itching/Pruritis 06/15/17 23:15 07/15/17 23:14 Docusate Sodium (Colace) 100 mg TWICE A DAY NG 06/16/17 18:00 07/16/17 17:59 Heparin Sodium (Porcine) (Heparin 5000 units/ml) 5,000 units EVERY 12 HOURS SUBQ 06/16/17 09:00 07/16/17 08:59 06/16/17 10:04 Lorazepam (Ativan 2mg/ml 1ml) 1 mg Q4H PRN IV agitation 06/15/17 23:15 06/22/17 23:14 Metoclopramide HCl (Reglan) 5 mg Q6H PRN IVP servere [place]ase[place] 06/15/17 23:15 07/15/17 23:14 Morphine Sulfate (Morphine Sulfate) 2 mg Q4H PRN IVP severe Pain (Pain Scale 7-10) 06/15/17 23:15 06/22/17 23:14 Nitroglycerin (Ntg) 0.4 mg Q5M X 3 DOSES PRN SL Prn Chest Pain 06/15/17 23:15 07/15/17 23:14 Ondansetron HCl (Zofran) 4 mg Q6H PRN IVP Nausea & Vomiting 06/15/17 23:15 07/15/17 23:14 Pantoprazole (Protonix) 40 mg DAILY IV 06/16/17 09:00 07/16/17 08:59 06/16/17 10:03 Polyethylene Glycol (Miralax) 17 gm HSPRN PRN ORAL Constipation 06/15/17 23:15 07/15/17 23:14 Promethazine HCl (Phenergan) 25 mg Q8H PRN IV refractory nausea 06/15/17 23:15 07/15/17 23:14 Temazepam (Restoril) 15 mg HSPRN PRN ORAL Insomnia 06/15/17 23:15 06/22/17 23:14 Charito Hernandez M.D. Jun 16, 2017 14:49
--- NOTE | 2017-06-16 15:34 | Consultation ---
History of Present Illness General Chief Complaint: Vomiting Referring physician: JANELLE RENEE Reason for Consultation: inpatient management Present Illness HPI 72-year-old female with GI malignancy and liver metastasis, presented after increased vomiting and abdominal pain. She had not been having any fever. She denied hematemesis or bloody stools. Patient prior history of ulcerative colitis. Allergies: Coded Allergies: PENICILLINS (Verified Adverse Reaction, Severe, "passed out", 05/07/17) Medication History Scheduled Asenapine Maleate (Saphris), 5 MG SL BID, (Reported) Bisacodyl (Dulcolax), 10 MG RC PRN, (Reported) Carvedilol (Coreg), 6.25 MG ORAL EVERY 12 HOURS, (Reported) Docusate Sodium* (Colace*), 100 MG ORAL DAILY, (Reported) Ferrous Sulfate (Iron), 325 MG PO DAILY, (Reported) Hydralazine Hcl* (Hydralazine Hcl*), 25 MG ORAL EVERY 8 HOURS, (Reported) Lisinopril* (Zestril*), 10 MG ORAL DAILY, (Reported) Magnesium Hydroxide* (Milk Of Magnesia*), 30 ML ORAL DAILY, (Reported) Memantine Hcl* (Namenda*), 10 MG ORAL BID, (Reported) Mirtazapine* (Remeron*), 7.5 MG ORAL BEDTIME, (Reported) Na Phos,M-B/Na Phos,Di-Ba* (Fleet Enema*), 133 ML RECTAL DAILY, (Reported) Pantoprazole* (Protonix*), 40 MG ORAL DAILY, (Reported) Sennosides (Senna Lax), 17.2 MG PO HS, (Reported) Scheduled PRN Acetaminophen* (Acetaminophen 325MG Tablet*), 650 MG ORAL Q4H PRN for Pain Scale (3-5), (Reported) Clonidine Hcl* (Catapres*), 0.1 MG ORAL Q12HR PRN for For High Blood Pressure, ( Reported) Patient History Healthcare decision maker Resuscitation status Full Code Advanced Directive on File Yes Past Medical/Surgical History Past Medical/Surgical History: (1) Breast tumor (2) HTN (hypertension) (3) Depressed (4) Anemia (5) Colon cancer (6) Schizophrenia Review of Systems All Other Systems: negative except mentioned in HPI Physical Exam General Appearance: WD/WN Lines, tubes and drains: peripheral, central line HEENT: normocephalic, atraumatic Neck: non-tender, normal alignment Respiratory/Chest: chest wall non-tender, lungs clear Cardiovascular/Chest: normal peripheral pulses, normal rate Abdomen: normal bowel sounds, non tender Genitourinary/Rectal: normal genital exam, normal rectal exam Extremities: normal range of motion, non-tender Skin Exam: warm/dry Neurologic: no motor/sensory deficits Last 24 Hour Vital Signs Date Time Temp Pulse Resp B/P Pulse Ox O2 Delivery O2 Flow Rate FiO2 06/16/17 11:39 97.5 66 19 144/85 97 Room Air 06/16/17 07:55 97.2 67 19 145/88 100 Room Air 06/16/17 04:00 96.8 69 18 131/76 98 Room Air 06/16/17 00:00 96.1 86 20 169/97 100 Room Air 06/15/17 23:19 86 16 162/91 98 Room Air 06/15/17 20:43 94 13 156/91 100 Room Air 06/15/17 19:09 97.9 94 19 169/93 95 Room Air Intake and Output 06/15/17 06/16/17 19:00 07:00 Intake Total 450 ml Balance 450 ml Intake IV Total 450 ml # Voids 1 Laboratory Tests Test 06/15/17 20:10 06/15/17 20:50 06/16/17 06:10 White Blood Count 8.0 K/UL (4.8-10.8) 6.5 K/UL (4.8-10.8) Red Blood Count 4.23 M/UL (4.20-5.40) 4.04 M/UL (4.20-5.40) L Hemoglobin 11.9 G/DL (12.0-16.0) L 11.5 G/DL (12.0-16.0) L Hematocrit 36.8 % (37.0-47.0) L 34.9 % (37.0-47.0) L Mean Corpuscular Volume 87 FL (80-99) 86 FL (80-99) Mean Corpuscular Hemoglobin 28.1 PG (27.0-31.0) 28.5 PG (27.0-31.0) Mean Corpuscular Hemoglobin Concent 32.4 G/DL (32.0-36.0) 33.0 G/DL (32.0-36.0) Red Cell Distribution Width 15.2 % (11.6-14.8) H 15.2 % (11.6-14.8) H Platelet Count 192 K/UL (150-450) 169 K/UL (150-450) Mean Platelet Volume 6.0 FL (6.5-10.1) L 5.4 FL (6.5-10.1) L Neutrophils (%) (Auto) 57.7 % (45.0-75.0) 55.6 % (45.0-75.0) Lymphocytes (%) (Auto) 26.6 % (20.0-45.0) 27.2 % (20.0-45.0) Monocytes (%) (Auto) 9.4 % (1.0-10.0) 10.0 % (1.0-10.0) Eosinophils (%) (Auto) 4.9 % (0.0-3.0) H 6.2 % (0.0-3.0) H Basophils (%) (Auto) 1.3 % (0.0-2.0) 1.0 % (0.0-2.0) Sodium Level 142 mEQ/L (135-145) 141 mEQ/L (135-145) Potassium Level 4.2 mEQ/L (3.4-4.9) 3.9 mEQ/L (3.4-4.9) Chloride Level 101 mEQ/L (98-107) 106 mEQ/L (98-107) Carbon Dioxide Level 29 mEQ/L (20-30) 26 mEQ/L (20-30) Anion Gap 12 (5-15) 9 (5-15) Blood Urea Nitrogen 19 mg/dL (7-23) 16 mg/dL (7-23) Creatinine 1.3 mg/dL (0.5-0.9) H 1.2 mg/dL (0.5-0.9) H Estimat Glomerular Filtration Rate mL/min (>60) mL/min (>60) Glucose Level 156 mg/dL (74-106) H 104 mg/dL (74-106) Calcium Level 9.8 mg/dL (8.6-10.2) 9.1 mg/dL (8.6-10.2) Total Bilirubin < 0.2 mg/dL (0.0-1.2) 0.2 mg/dL (0.0-1.2) Aspartate Amino Transf (AST/SGOT) 21 U/L (5-40) 18 U/L (5-40) Alanine Aminotransferase (ALT/SGPT) 12 U/L (3-33) 9 U/L (3-33) Alkaline Phosphatase 78 U/L (35-104) 64 U/L (35-104) Total Protein 6.7 g/dL (6.6-8.7) 6.0 g/dL (6.6-8.7) L Albumin 3.8 g/dL (3.5-5.2) 3.4 g/dL (3.5-5.2) L Globulin 2.9 g/dL 2.6 g/dL Albumin/Globulin Ratio 1.3 (1.0-2.7) 1.3 (1.0-2.7) Lipase 33 U/L (< 60) 25 U/L (< 60) Urine Color Pale yellow Urine Appearance Clear Urine pH 6.5 (4.5-8.0) Urine Specific [place] 1.005 (1.005-1.035) Urine Protein Negative (NEGATIVE) Urine Glucose (UA) Negative (NEGATIVE) Urine Ketones Negative (NEGATIVE) Urine Occult Blood Negative (NEGATIVE) Urine Nitrite Negative (NEGATIVE) Urine Bilirubin Negative (NEGATIVE) Urine Urobilinogen Normal MG/DL (0.0-1.0) Urine Leukocyte Esterase 2+ (NEGATIVE) H Urine RBC 0-2 /HPF (0 - 2) Urine WBC 0-2 /HPF (0 - 2) Urine Squamous Epithelial Cells Occasional /LPF Urine Bacteria Occasional /HPF (NONE) Activated Partial Thromboplast Time 25 SEC (23-33) Amylase Level 99 U/L (10-110) Carcinoembryonic Antigen 33.9 ng/mL H CA 19-9 Antigen 128.1 U/mL (< 37) H Height (Feet): 5 Height (Inches): 5.00 Weight (Pounds): 150 Medications Current Medications Medications (Trade) Dose Ordered Sig/Leonardo Route PRN Reason Start Time Stop Time Status Last Admin Dose Admin Acetaminophen (Tylenol) 650 mg Q4H PRN ORAL fever 06/15/17 23:15 07/15/17 23:14 Al Hydroxide/Mg Hydroxide (Mylanta II) 30 ml Q6H PRN ORAL dyspepsia 06/15/17 23:15 07/15/17 23:14 Dextrose (Dextrose 50%) STAT PRN IV Hypoglycemia 06/15/17 23:15 07/15/17 23:14 Dextrose/Sodium Chloride (D5 0.45% NS) 1,000 ml @ 75 mls/hr [id number] IV 06/15/17 17:40 07/15/17 17:39 06/16/17 00:26 Diphenhydramine HCl (Benadryl) 25 mg Q6H PRN ORAL Itching/Pruritis 06/15/17 23:15 07/15/17 23:14 Docusate Sodium 100 mg 100 mg TWICE A DAY NG 06/16/17 18:00 07/16/17 17:59 Heparin Sodium (Porcine) (Heparin 5000 units/ml) 5,000 units EVERY 12 HOURS SUBQ 06/16/17 09:00 07/16/17 08:59 06/16/17 10:04 Levofloxacin 100 ml @ 100 mls/hr ONCE ONCE IVPB 06/16/17 16:00 06/16/17 16:59 Lorazepam (Ativan 2mg/ml 1ml) 1 mg Q4H PRN IV agitation 06/15/17 23:15 06/22/17 23:14 Metoclopramide HCl (Reglan) 5 mg Q6H PRN IVP servere nauasea 06/15/17 23:15 07/15/17 23:14 Metronidazole (Flagyl) 100 ml @ 100 mls/hr Q8HR IVPB 06/16/17 16:00 06/23/17 15:59 Morphine Sulfate (Morphine Sulfate) 2 mg Q4H PRN IVP severe Pain (Pain Scale 7-10) 06/15/17 23:15 06/22/17 23:14 Nitroglycerin (Ntg) 0.4 mg Q5M X 3 DOSES PRN SL Prn Chest Pain 06/15/17 23:15 07/15/17 23:14 Ondansetron HCl (Zofran) 4 mg Q6H PRN IVP Nausea & Vomiting 06/15/17 23:15 07/15/17 23:14 Pantoprazole (Protonix) 40 mg DAILY IV 06/16/17 09:00 07/16/17 08:59 06/16/17 10:03 Polyethylene Glycol (Miralax) 17 gm HSPRN PRN ORAL Constipation 06/15/17 23:15 07/15/17 23:14 Promethazine HCl (Phenergan) 25 mg Q8H PRN IV refractory nausea 06/15/17 23:15 07/15/17 23:14 Temazepam (Restoril) 15 mg HSPRN PRN ORAL Insomnia 06/15/17 23:15 06/22/17 23:14 Assessment/Plan Problem List: (1) Intractable nausea and vomiting ICD Codes: R11.2 - Nausea with vomiting, unspecified SNOMED: 508672247, 690624927 (2) Metastatic adenocarcinoma ICD Codes: C79.9 - Secondary malignant neoplasm of unspecified site SNOMED: 0538503, 021560475 (3) Schizophrenia ICD Codes: F20.9 - Schizophrenia, unspecified SNOMED: 50704768 (4) HTN (hypertension) ICD Codes: I10 - Essential (primary) hypertension SNOMED: 54430748 (5) Depressed ICD Codes: F32.9 - Major depressive disorder, single episode, unspecified SNOMED: 41153603 Assessment/Plan NPO GI evaluation symptomatic treatment check electrolytes pt wants to be DNR. MEHRAN BARAJAS Jun 16, 2017 15:34
[2017-06-16 15:45] VITALS: BP 139/88
[2017-06-16] MEDS ORDERED: D5 1/2NS 1000ml IV ONE (16:54)
[2017-06-16] MEDS: metroNIDAZOLE 500mg 100 ML IVPB SCH ×3 (17:40→22:00)
[2017-06-16] MEDS: Docusate 100mg/10ml Liq NG SCH (17:54)
[2017-06-16 20:00] VITALS: BP 164/99
--- NOTE | 2017-06-16 20:00 | Consultation ---
DATE OF CONSULTATION: INFECTIOUS DISEASE CONSULTATION CONSULTING PHYSICIAN: Charito Hernandez M.D. REQUESTING PHYSICIAN: Michael Moreira D.O. REASON FOR CONSULTATION: Acute diverticulitis, recommendation for antibiotics treatment. HISTORY OF PRESENT ILLNESS: The patient is a 72-year-old female with history of colon cancer and metastases presented to [facility] with abdominal pain, nausea, and vomiting for a couple of days. The patient had prior history of colon cancer unclear whether she was treated for it or not. She also had history of breast cancer again unsure if she had any treatment or surgical resection. The patient has been vomiting food material where she lives. CT scan of the abdomen and pelvis showed evidence of air-fluid levels with acute diverticulitis so she was started on antibiotics and I was consulted by the primary provider for antibiotics treatment and further management. As of note, the patient is a poor historian, could not provide good history at this point. REVIEW OF SYSTEMS: Unable to obtain. The patient is a poor historian. PAST MEDICAL HISTORY: Significant for hypertension, CVA, colon cancer, and breast cancer. PAST SURGICAL HISTORY: Unclear whether she had colon surgery for her colon cancer. MEDICATIONS: The patient was started on Reglan, Ativan, Phenergan, Mylanta, dextrose, nitroglycerin, Benadryl, Restoril, Zofran, MiraLAX, morphine, Tylenol, Protonix, and heparin. ALLERGIES: She is allergic to penicillin. SOCIAL HISTORY: [facility]. No recent drugs, tobacco, or alcohol. FAMILY HISTORY: Unable to obtain. PHYSICAL EXAMINATION: VITAL SIGNS: Temperature 97.5, pulse 66, respirations 19, blood pressure 144/85, and saturation 97% on room air. GENERAL: This is an elderly female, lying in bed, lethargic, alert, not in distress. HEENT: Normocephalic and atraumatic. Pupils are reactive to light. Moist oral mucosa. No exudate. NECK: Supple. No lymphadenopathy. CARDIOVASCULAR: Regular rate and rhythm. No murmur. No gallop. LUNGS: Clear bilaterally. Diminished breathing sound at the bases. ABDOMEN: Soft, tender. No rebound. No organomegaly and no ascites. EXTREMITIES: No edema or cyanosis. LABORATORY DATA: Labs showed BUN of 16, creatinine of 1.2. AST of 18, ALT of 9, and alkaline phosphatase of 64. Lipase of 25. CEA 33.9. CA 19-9 128.1. Urinalysis was negative for infection. IMAGING: CT scan abdomen and pelvis showed colonic diverticulosis, persistent slight infiltration of the pericolonic fat at the junction of the distal descending and proximal sigmoid colon unchanged from previous study. This could represent acute diverticulitis versus chronic change, underlying neoplasm less likely but not excluded. Anterior midline incision and fluid collection unchanged from prior study. ASSESSMENT AND RECOMMENDATION: 1. Acute diverticulitis. We will send stool for Clostridium difficile and culture. We will start Levaquin and Flagyl empirically. 2. Colon cancer. Gastrointestinal is following. Recommend Oncology evaluation for further management and care. 3. Liver lesion suspect metastases due to gastrointestinal malignancy. Recommend Oncology evaluation, may need biopsy to confirm. 4. Ulcerative colitis. Gastrointestinal is following. Continue medications as needed. Charito Hernandez M.D. DR: UMANG JOB#: [id number] CC:
--- NOTE | 2017-06-16 23:00 | History and Physical Report ---
DATE OF ADMISSION: 06/15/2017 TIME: At 2 p.m. CONSULTANTS: 1. Dr. Samuel. 2. Willy Eldridge M.D. 3. Becky Recinos M.D. 4. Jasvir Montano M.D. CHIEF COMPLAINT: Abdominal pain, nausea, vomiting, and colon cancer. BRIEF HISTORY: The patient is a 72-year-old female from [facility] presented with history of recently diagnosed with colon cancer. She sustained some abdominal pain, nausea, and vomiting, came to [place], diagnosed with above and admitted to medical floor for further treatment. Currently, calm in bed, pain slightly improved. No other complaints. PAST MEDICAL HISTORY: Colon cancer, liver lesion, diabetes, and depression. PAST SURGICAL HISTORY: Hernia and knee. MEDICATIONS: Colace, heparin, Protonix, Tylenol, morphine, MiraLAX, Zofran, Restoril, Benadryl, Reglan, Mylanta, promethazine, and Ativan. ALLERGIES: Penicillin. SOCIAL HISTORY: No smoking. No alcohol. No intravenous drug abuse. FAMILY HISTORY: Noncontributory. REVIEW OF SYSTEMS: No chest pain/short of breath. Slight nausea and vomiting and no diarrhea. PHYSICAL EXAMINATION: GENERAL: The patient is calm in bed, oriented x2, in no acute distress. VITAL SIGNS: Temperature is 97 degrees, pulse 66, respiratory rate 19, and blood pressure 144/85. CARDIOVASCULAR: No murmur. LUNGS: Distant and clear. ABDOMEN: Bowel sounds positive. Soft, nontender, and nondistended. EXTREMITIES: No cyanosis, clubbing, or edema. NEUROLOGIC: The patient moves all extremities, slightly weak. LABORATORY DATA: Hemoglobin 11.5, otherwise CBC is normal. BMP shows creatinine 1.2 and albumin 3.4, otherwise normal. PTT 25. Urinalysis, 2+ leukocyte esterase. ASSESSMENT: 1. Abdominal pain, nausea and vomiting. 2. Urinary tract infection. 3. Colon cancer. 4. Anemia. 5. Liver lesion. 6. Diabetes. 7. Depression. PLAN: Continue pre-medications. OT/PT. Dietary evaluation. Pain control. Nausea control. CBC and BMP in the morning. Resume home medications. Dr. Recinos, Dr. Samuel, Dr. Eldridge, Dr. Montano, and Dr. Anderson to consult. We will continue to follow this patient. Michael Moreira D.O. DR: MILTON JOB#: [id number] CC:
[2017-06-17] VITALS: BP 145/77
[2017-06-17 04:00] VITALS: BP 138/83
[2017-06-17] MEDS: metroNIDAZOLE 500mg 100 ML IVPB SCH ×4 (05:55→22:00)
--- NOTE | 2017-06-17 07:00 | Consultation ---
DATE OF CONSULTATION: 06/16/2017 HEMATOLOGY/ONCOLOGY CONSULTATION CONSULTING PHYSICIAN: Cheko Samuel M.D. REFERRING PHYSICIAN: Michael Moreira D.O. IDENTIFYING DATA: Dear Dr. Michael Moreira, The patient is a pleasant 72-year-old female with past medical history significant for colon cancer with liver metastases, increased nausea, vomiting, and abdominal pain. In addition, she has a past medical history of ulcerative colitis. On admission, she was seen by the GI team. She has not been having any fever. History of recently diagnosed cancer. Again, was seen in the clinic, reviewed the PET scan, which showed colon cancer with mets with a new diagnosis. PAST MEDICAL HISTORY: Colon cancer with metastases, hypertension, anemia, and schizophrenia. PAST SURGICAL HISTORY: None noted. REVIEW OF SYSTEMS: Constitutional: No fever, chills, or night sweats. Skin: No rash, lumps, or itching. HEENT: No headache, hearing, or vision changes. Breasts: No lumps, pain, or discharge. Pulmonary: No cough, sputum, or shortness of breath. Cardiovascular: No chest pain, tenderness, or palpitations. Gastrointestinal: Some nausea, vomiting, or diarrhea noted. PHYSICAL EXAMINATION: VITAL SIGNS: Temperature 97.8 degrees Fahrenheit, pulse 66, respiratory rate 12, blood pressure 144/85, and pulse oximetry 99% on room air. GENERAL: No acute distress. PULMONARY: Decreased breath sounds. CARDIOVASCULAR: Regular rate. No S3 or S4. ABDOMEN: Soft, nontender, and nondistended. EXTREMITIES: There is 1+ pitting edema. LABORATORY AND DIAGNOSTIC DATA: WBC 12.9, hemoglobin 11.5, hematocrit 35, and platelet count 159,000. IMAGING STUDIES: Imaging shows multiple masses suspicious for metastases and liver lesions that is not characterized. CT scan is pending. ASSESSMENT AND PLAN: 1. Metastatic colorectal cancer. CEA was 34. CA 19-9 was 128. The patient was seen by an outpatient oncologist. PET/CT completed. Outpatient management. 2. Anemia secondary to chronic disease, transfuse as needed. 3. Anemia is very mild. 4. Elevated tumor markers, elevated metastases and colon cancer diagnosis. 5. Acute diverticulitis. 6. History of liver lesion. 7. Ulcerative colitis. 8. The patient lives in [facility]. 9. Continue hydration. Cheko Samuel M.D. DR: SILVIANO JOB#: [id number] CC:
[2017-06-17 07:39] LABS: BASOPHILS % (AUTO) 1.5 % (0.0-2.0); EOSINOPHILS % (AUTO) 5.6 % (0.0-3.0); LYMPHOCYTES % (AUTO) 29.7 % (20.0-45.0); MEAN CORPUSCULAR HGB CONC 32.5 G/DL (32.0-36.0); MEAN CORPUSCULAR VOLUME 86 FL (80-99); MEAN PLATELET VOLUME 5.7 FL (6.5-10.1); MONOCYTES % (AUTO) 9.6 % (1.0-10.0); NEUTROPHILS % (AUTO) 53.6 % (45.0-75.0); PLATELET COUNT 173 K/UL (150-450); RED BLOOD COUNT 4.09 M/UL (4.20-5.40); RED CELL DISTRIBUTION WIDTH 15.1 % (11.6-14.8); WHITE BLOOD COUNT 5.5 K/UL (4.8-10.8)
[2017-06-17 08:00] VITALS: BP 151/88
[2017-06-17 08:04] LABS: ANION GAP 8 (5-15); CALCIUM 9.2 mg/dL (8.6-10.2); CARBON DIOXIDE 28 mEQ/L (20-30); CHLORIDE 107 mEQ/L (98-107); CREATININE 1.2 mg/dL (0.5-0.9); HEMOLYSIS 4; MAGNESIUM 1.7 mg/dL (1.7-2.5); PHOSPHORUS 2.9 mg/dL (2.5-4.8); POTASSIUM 3.8 mEQ/L (3.4-4.9); SODIUM 143 mEQ/L (135-145)
[2017-06-17] MEDS: Docusate 100mg/10ml Liq NG SCH ×2 (09:00→18:00)
[2017-06-17] MEDS: Pantoprazole Inj IV SCH (09:32)
[2017-06-17] MEDS: Heparin 5000 units/ml inj SUBQ SCH ×2 (09:33→20:59)
[2017-06-17] MEDS: D5 1/2NS 1,000 ML IV SCH ×2 (09:33→21:00)
--- NOTE | 2017-06-17 09:46 | Diagnostic Imaging Report ---
Indication: Abdominal pain, abnormal renal function tests, abnormal carcinoembryonic antigen Technique: Razo-scale and duplex images of the upper abdomen were obtained Comparison: Reference made to abdomen pelvis CT 06/15/2017 Findings: Gallbladder is unremarkable, without stones, wall thickening, nor pericholecystic fluid. Sonographic Desouza's sign is negative. Common bile duct measures 4 mm in diameter. No intrahepatic biliary ductal dilatation. Liver demonstrates heterogeneous echotexture, with a 4.9 cm mixed echogenicity mass in the medial right hepatic lobe, corresponding to the abnormality seen on recent CT scan. The other lesions described on recent CT do not appear to have a sonographic equivalent. Portal vein and hepatic veins are patent. Pancreas is unremarkable. The spleen demonstrates a small hypoechoic lesion which measures 8 mm in diameter. An accessory splenule is demonstrated in the hilum. Left kidney measures 10.8 cm in length. Right kidney measures 11 cm length. Both kidneys demonstrate normal echogenicity. There is no hydronephrosis. In the interpolar region of the right kidney, there is suggestion of a solid lesion which is nearly isoechoic to kidney, measuring 2.2 x 1.7 cm, and corresponding to the contour abnormality described on recent CT. Multiple right renal cysts are demonstrated. Left kidney demonstrates multiple cysts. There is also a structure with low-level internal echoes, distal acoustic enhancement in the interpolar region left kidney measuring 2.4 cm diameter, mostly low likely a proteinaceous cyst.. Non-aneurysmal abdominal aorta . In the umbilical region, there is area of shadowing that corresponds to the cystic lesion demonstrated on recent CT. Impression: Negative for gallstones or dilated ducts 4.9 cm mixed echogenicity mass in the medial right hepatic lobe, or spotting to the solid mass described on recent CT in this area, suspicious for neoplasm. Liver abscess also a possibility, less likely 2.2 x 1.7 cm probable right renal solid mass, corresponding to questionable abnormality described on recent CT scan, and concerning for renal neoplasm Bilateral renal cysts Hypoechoic lesion within the spleen, probably but not definitely a cyst Midline shadowing structure, corresponding to the midline fluid collection described on recent CT
[2017-06-17] MEDS ORDERED: D5 1/2NS 1000ml IV ONE (10:46)
[2017-06-17] MEDS ORDERED: Tubing IV Secondary IV ONE (10:46)
--- NOTE | 2017-06-17 11:08 | Consultation ---
History of Present Illness General Date patient seen: Jun 17, 2017 Chief Complaint: Vomiting Referring physician: JANELLE RENEE Reason for Consultation: inpatient management Present Illness HPI 72F known colon cancer with mets to liver. Has been receiving care as an outpatient and being cared for by oncologist, PCP, GI. Was admitted for nausea and emesis yesterday. Given symptoms there was concern for possible bowel obstruction given history. surgery called to evaluate. When seen at bedside this morning, patient states she feels well and without complaints. No nausea or emesis since admission. No abdominal pain. passing flatus. expressed strong desire to be discharged home. Allergies: Coded Allergies: PENICILLINS (Verified Adverse Reaction, Severe, "passed out", 05/07/17) Medication History Scheduled Asenapine Maleate (Saphris), 5 MG SL BID, (Reported) Bisacodyl (Dulcolax), 10 MG RC PRN, (Reported) Carvedilol (Coreg), 6.25 MG ORAL EVERY 12 HOURS, (Reported) Docusate Sodium* (Colace*), 100 MG ORAL DAILY, (Reported) Ferrous Sulfate (Iron), 325 MG PO DAILY, (Reported) Hydralazine Hcl* (Hydralazine Hcl*), 25 MG ORAL EVERY 8 HOURS, (Reported) Lisinopril* (Zestril*), 10 MG ORAL DAILY, (Reported) Magnesium Hydroxide* (Milk Of Magnesia*), 30 ML ORAL DAILY, (Reported) Memantine Hcl* (Namenda*), 10 MG ORAL BID, (Reported) Mirtazapine* (Remeron*), 7.5 MG ORAL BEDTIME, (Reported) Na Phos,M-B/Na Phos,Di-Ba* (Fleet Enema*), 133 ML RECTAL DAILY, (Reported) Pantoprazole* (Protonix*), 40 MG ORAL DAILY, (Reported) Sennosides (Senna Lax), 17.2 MG PO HS, (Reported) Scheduled PRN Acetaminophen* (Acetaminophen 325MG Tablet*), 650 MG ORAL Q4H PRN for Pain Scale (3-5), (Reported) Clonidine Hcl* (Catapres*), 0.1 MG ORAL Q12HR PRN for For High Blood Pressure, ( Reported) Patient History History Provided By: Patient Healthcare decision maker Resuscitation status Full Code Advanced Directive on File Yes Past Medical/Surgical History Past Medical/Surgical History: (1) Colonoscopy planned (2) Anemia (3) Colon cancer (4) Liver lesion (5) Ulcerative colitis (6) Dysphagia (7) Esophageal stricture (8) Schizophrenia (9) Acute diverticulitis (10) Breast tumor (11) HTN (hypertension) (12) Depressed (13) Metastatic adenocarcinoma (14) Intractable nausea and vomiting Review of Systems All Other Systems: negative except mentioned in HPI Physical Exam General Appearance: no apparent distress, alert Lines, tubes and drains: peripheral HEENT: mucous membranes moist, PERRL Neck: normal inspection Respiratory/Chest: normal breath sounds, no respiratory distress, no accessory muscle use Cardiovascular/Chest: normal rate, regular rhythm Abdomen: normal bowel sounds, non tender, soft, no organomegaly, no mass Extremities: normal inspection Skin Exam: normal pigmentation Neurologic: alert, oriented x 3 Last 24 Hour Vital Signs Date Time Temp Pulse Resp B/P Pulse Ox O2 Delivery O2 Flow Rate FiO2 06/17/17 08:00 97.6 74 20 151/88 97 Room Air 06/17/17 04:00 97.7 64 18 138/83 95 Room Air 06/17/17 00:00 98.1 70 19 145/77 95 Room Air 06/16/17 20:00 97.7 71 20 164/99 92 Room Air 06/16/17 15:45 97.8 72 19 139/88 98 Room Air 06/16/17 11:39 97.5 66 19 144/85 97 Room Air Intake and Output 06/16/17 06/17/17 19:00 07:00 Intake Total 995 ml 890 ml Balance 995 ml 890 ml Intake Oral 520 ml 640 ml IV Total 475 ml 250 ml # Voids 4 5 # Bowel Movements 1 1 Laboratory Tests Test 06/17/17 06:55 White Blood Count 5.5 K/UL (4.8-10.8) Red Blood Count 4.09 M/UL (4.20-5.40) L Hemoglobin 11.4 G/DL (12.0-16.0) L Hematocrit 35.2 % (37.0-47.0) L Mean Corpuscular Volume 86 FL (80-99) Mean Corpuscular Hemoglobin 28.0 PG (27.0-31.0) Mean Corpuscular Hemoglobin Concent 32.5 G/DL (32.0-36.0) Red Cell Distribution Width 15.1 % (11.6-14.8) H Platelet Count 173 K/UL (150-450) Mean Platelet Volume 5.7 FL (6.5-10.1) L Neutrophils (%) (Auto) 53.6 % (45.0-75.0) Lymphocytes (%) (Auto) 29.7 % (20.0-45.0) Monocytes (%) (Auto) 9.6 % (1.0-10.0) Eosinophils (%) (Auto) 5.6 % (0.0-3.0) H Basophils (%) (Auto) 1.5 % (0.0-2.0) Sodium Level 143 mEQ/L (135-145) Potassium Level 3.8 mEQ/L (3.4-4.9) Chloride Level 107 mEQ/L (98-107) Carbon Dioxide Level 28 mEQ/L (20-30) Anion Gap 8 (5-15) Blood Urea Nitrogen 12 mg/dL (7-23) Creatinine 1.2 mg/dL (0.5-0.9) H Estimat Glomerular Filtration Rate mL/min (>60) Glucose Level 106 mg/dL (74-106) Calcium Level 9.2 mg/dL (8.6-10.2) Phosphorus Level 2.9 mg/dL (2.5-4.8) Magnesium Level 1.7 mg/dL (1.7-2.5) Height (Feet): 5 Height (Inches): 5.00 Weight (Pounds): 150 Medications Current Medications Medications (Trade) Dose Ordered Sig/Leonardo Route PRN Reason Start Time Stop Time Status Last Admin Dose Admin Acetaminophen (Tylenol) 650 mg Q4H PRN ORAL fever 06/15/17 23:15 07/15/17 23:14 Al Hydroxide/Mg Hydroxide (Mylanta II) 30 ml Q6H PRN ORAL dyspepsia 06/15/17 23:15 07/15/17 23:14 Dextrose (Dextrose 50%) STAT PRN IV Hypoglycemia 06/15/17 23:15 07/15/17 23:14 Dextrose/Sodium Chloride (D5 0.45% NS) 1,000 ml @ 75 mls/hr [id number] IV 06/15/17 17:40 07/15/17 17:39 06/17/17 09:33 Diphenhydramine HCl (Benadryl) 25 mg Q6H PRN ORAL Itching/Pruritis 06/15/17 23:15 07/15/17 23:14 Docusate Sodium 100 mg 100 mg TWICE A DAY NG 06/16/17 18:00 07/16/17 17:59 Heparin Sodium (Porcine) (Heparin 5000 units/ml) 5,000 units EVERY 12 HOURS SUBQ 06/16/17 09:00 07/16/17 08:59 06/17/17 09:33 Levofloxacin (Levaquin) 50 ml @ 50 mls/hr Q24H IVPB 06/17/17 16:00 06/24/17 15:59 Lorazepam (Ativan 2mg/ml 1ml) 1 mg Q4H PRN IV agitation 06/15/17 23:15 06/22/17 23:14 Metoclopramide HCl (Reglan) 5 mg Q6H PRN IVP servere nauasea 06/15/17 23:15 07/15/17 23:14 Metronidazole 100 ml @ 100 mls/hr Q8HR IVPB 06/16/17 16:00 06/23/17 15:59 06/17/17 05:55 Morphine Sulfate (Morphine Sulfate) 2 mg Q4H PRN IVP severe Pain (Pain Scale 7-10) 06/15/17 23:15 06/22/17 23:14 Nitroglycerin (Ntg) 0.4 mg Q5M X 3 DOSES PRN SL Prn Chest Pain 06/15/17 23:15 07/15/17 23:14 Ondansetron HCl (Zofran) 4 mg Q6H PRN IVP Nausea & Vomiting 06/15/17 23:15 07/15/17 23:14 Pantoprazole (Protonix) 40 mg DAILY IV 06/16/17 09:00 07/16/17 08:59 06/17/17 09:32 Polyethylene Glycol (Miralax) 17 gm HSPRN PRN ORAL Constipation 06/15/17 23:15 07/15/17 23:14 Promethazine HCl (Phenergan) 25 mg Q8H PRN IV refractory nausea 06/15/17 23:15 07/15/17 23:14 Temazepam (Restoril) 15 mg HSPRN PRN ORAL Insomnia 06/15/17 23:15 06/22/17 23:14 Assessment/Plan Problem List: (1) Colon cancer Assessment & Plan: 72F with stage IV colon cancer admitted for nausea and emesis which have resolved. Afebrile, HD stable, labs okay. CT scan reviewed and no obstruction or dilated bowel. No acute surgical intervention necessary Trial oral diet Will follow Thank you for this consultation ICD Codes: C18.9 - Malignant neoplasm of colon, unspecified SNOMED: 655868247 Status: stable Ned Bush Jun 17, 2017 11:08
--- NOTE | 2017-06-17 11:45 | General Progress Note ---
Assessment/Plan Problem List: (1) Anemia ICD Codes: D64.9 - Anemia, unspecified SNOMED: 787241851 (2) Colon cancer ICD Codes: C18.9 - Malignant neoplasm of colon, unspecified SNOMED: 486671662 (3) Liver lesion ICD Codes: K76.9 - Liver disease, unspecified SNOMED: 018703959 (4) Intractable nausea and vomiting ICD Codes: R11.2 - Nausea with vomiting, unspecified SNOMED: 116559169, 315975043 Status: stable, progressing, tolerating diet Assessment/Plan ot pt diet abvs gi heme f/u cbc bmp am Subjective Constitutional: Reports: weakness Allergies: Coded Allergies: PENICILLINS (Verified Adverse Reaction, Severe, "passed out", 05/07/17) All Systems: reviewed and negative except above Subjective calm in bed Objective Last 24 Hour Vital Signs Date Time Temp Pulse Resp B/P Pulse Ox O2 Delivery O2 Flow Rate FiO2 06/17/17 08:00 97.6 74 20 151/88 97 Room Air 06/17/17 04:00 97.7 64 18 138/83 95 Room Air 06/17/17 00:00 98.1 70 19 145/77 95 Room Air 06/16/17 20:00 97.7 71 20 164/99 92 Room Air 06/16/17 15:45 97.8 72 19 139/88 98 Room Air Intake and Output 06/16/17 06/17/17 19:00 07:00 Intake Total 995 ml 890 ml Balance 995 ml 890 ml Intake Oral 520 ml 640 ml IV Total 475 ml 250 ml # Voids 4 5 # Bowel Movements 1 1 Laboratory Tests 06/17/17 06:55: White Blood Count 5.5, Red Blood Count 4.09L, Hemoglobin 11.4L, Hematocrit 35.2L , Mean Corpuscular Volume 86, Mean Corpuscular Hemoglobin 28.0, Mean Corpuscular Hemoglobin Concent 32.5, Red Cell Distribution Width 15.1H, Platelet Count 173, Mean Platelet Volume 5.7L, Neutrophils (%) (Auto) 53.6, Lymphocytes (%) (Auto) 29.7, Monocytes (%) (Auto) 9.6, Eosinophils (%) (Auto) 5.6H, Basophils (%) (Auto) 1.5, Sodium Level 143, Potassium Level 3.8, Chloride Level 107, Carbon Dioxide Level 28, Anion Gap 8, Blood Urea Nitrogen 12, Creatinine 1.2H, Estimat Glomerular Filtration Rate , Glucose Level 106, Calcium Level 9.2, Phosphorus Level 2.9, Magnesium Level 1.7 Height (Feet): 5 Height (Inches): 5.00 Weight (Pounds): 150 General Appearance: confused EENT: normal ENT inspection Neck: normal alignment Cardiovascular: normal peripheral pulses, normal rate, regular rhythm Respiratory/Chest: chest wall non-tender, lungs clear, normal breath sounds Abdomen: normal bowel sounds, non tender, soft Extremities: normal inspection Edema: no edema noted Arm (L), no edema noted Arm (R), no edema noted Leg (L), no edema noted Leg (R), no edema noted Pedal (L), no edema noted Pedal (R), no edema noted Generalized Neurologic: responsive, motor weakness Skin: normal pigmentation, warm/dry JANELLE RENEE Jun 17, 2017 11:45
[2017-06-17 12:00] VITALS: BP 148/80
--- NOTE | 2017-06-17 13:23 | GI Progress Note ---
Assessment/Plan Problems: (1) Intractable nausea and vomiting ICD Codes: R11.2 - Nausea with vomiting, unspecified SNOMED: 797692032, 721650729 (2) Metastatic adenocarcinoma ICD Codes: C79.9 - Secondary malignant neoplasm of unspecified site SNOMED: 2638229, 859731151 (3) Depressed ICD Codes: F32.9 - Major depressive disorder, single episode, unspecified SNOMED: 54060836 (4) Colon cancer ICD Codes: C18.9 - Malignant neoplasm of colon, unspecified SNOMED: 951375746 (5) Anemia ICD Codes: D64.9 - Anemia, unspecified SNOMED: 210601747 Status: stable, progressing Status Narrative Discussed with Dr. Eldridge. Assessment/Plan PET scan reviewed with patient >> colon CA with met pt requires Oncology consult, needs to s/w POA ok for DC per GI standpoint symptomatic treatment adv diet as tolerated zofran prn ppi IV hydration + electrolyte replacement fu labs The patient was seen and examined at bedside and all new and available data was reviewed in the patients chart. I agree with the above findings, impression and plan. (Patient seen earlier today. Signature stamp does not reflect patient encounter time.). -Willy Eldridge MD Subjective Gastrointestinal/Abdominal: Reports: no symptoms Subjective N/V resolved resting Objective Last 24 Hour Vital Signs Date Time Temp Pulse Resp B/P Pulse Ox O2 Delivery O2 Flow Rate FiO2 06/17/17 12:00 98.0 76 20 148/80 98 Room Air 06/17/17 08:00 97.6 74 20 151/88 97 Room Air 06/17/17 04:00 97.7 64 18 138/83 95 Room Air 06/17/17 00:00 98.1 70 19 145/77 95 Room Air 06/16/17 20:00 97.7 71 20 164/99 92 Room Air 06/16/17 15:45 97.8 72 19 139/88 98 Room Air Intake and Output 06/16/17 06/17/17 19:00 07:00 Intake Total 995 ml 890 ml Balance 995 ml 890 ml Intake Oral 520 ml 640 ml IV Total 475 ml 250 ml # Voids 4 5 # Bowel Movements 1 1 Laboratory Tests Test 06/17/17 06:55 White Blood Count 5.5 K/UL (4.8-10.8) Red Blood Count 4.09 M/UL (4.20-5.40) L Hemoglobin 11.4 G/DL (12.0-16.0) L Hematocrit 35.2 % (37.0-47.0) L Mean Corpuscular Volume 86 FL (80-99) Mean Corpuscular Hemoglobin 28.0 PG (27.0-31.0) Mean Corpuscular Hemoglobin Concent 32.5 G/DL (32.0-36.0) Red Cell Distribution Width 15.1 % (11.6-14.8) H Platelet Count 173 K/UL (150-450) Mean Platelet Volume 5.7 FL (6.5-10.1) L Neutrophils (%) (Auto) 53.6 % (45.0-75.0) Lymphocytes (%) (Auto) 29.7 % (20.0-45.0) Monocytes (%) (Auto) 9.6 % (1.0-10.0) Eosinophils (%) (Auto) 5.6 % (0.0-3.0) H Basophils (%) (Auto) 1.5 % (0.0-2.0) Sodium Level 143 mEQ/L (135-145) Potassium Level 3.8 mEQ/L (3.4-4.9) Chloride Level 107 mEQ/L (98-107) Carbon Dioxide Level 28 mEQ/L (20-30) Anion Gap 8 (5-15) Blood Urea Nitrogen 12 mg/dL (7-23) Creatinine 1.2 mg/dL (0.5-0.9) H Estimat Glomerular Filtration Rate mL/min (>60) Glucose Level 106 mg/dL (74-106) Calcium Level 9.2 mg/dL (8.6-10.2) Phosphorus Level 2.9 mg/dL (2.5-4.8) Magnesium Level 1.7 mg/dL (1.7-2.5) Height (Feet): 5 Height (Inches): 5.00 Weight (Pounds): 150 General Appearance: no apparent distress, alert Cardiovascular: normal rate Respiratory/Chest: normal breath sounds, no respiratory distress Abdominal Exam: normal bowel sounds, non tender, soft Extremities: normal range of motion Julianna Nguyen N.P. Jun 17, 2017 13:23 WILLY ELDRIDGE Jun 17, 2017 16:55
[2017-06-17 16:00] VITALS: BP 135/77
[2017-06-17] MEDS ORDERED: Levofloxacin 250mg/D5W 50ml IVPB SCH (16:00)
--- NOTE | 2017-06-17 16:15 | Consultation ---
DATE OF CONSULTATION: 06/16/2017 PSYCHOTHERAPY CONSULTATION PROGRESS NOTE CONSULTING PHYSICIAN: Olegario Borrego M.D. TREATING ATTENDING PHYSICIAN: Michael Moreira D.O. HISTORY OF PRESENT ILLNESS: The patient is a 72-year-old female patient. The patient is from [facility]. The patient was brought into the hospital for evaluation and dehydration. The patient with history of paranoid schizophrenia. The patient has been anxious, irritable, and disorganized. The patient has been complaining of nausea with ice chips. The patient denies suicidal and homicidal thoughts of ideation. Denies auditory or visual hallucinations at this time. PAST MEDICAL HISTORY: History of colon cancer, liver lesions, and . ALLERGIES: The patient is allergic to penicillin. PAST PSYCHIATRIC HISTORY: The patient has history of paranoid schizophrenia. The patient has been treated with psychotropic medications in the past. SOCIAL HISTORY: The patient is a 72-year-old female patient from [facility]. Financially sustained through Medicare and [employer]. MENTAL STATUS EXAMINATION: The patient is alert and oriented x3 to person, place, and time. Mood is irritable. Affect is congruent. Thought process is fairly disorganized. The patient has poor attention and concentration. Poor insight, judgment, and impulse control. This clinician is providing the patient with reality orientation, supportive psychotherapy, adjusting the patient's anxiety, providing coping skills, DIAGNOSES: AXIS I Paranoid schizophrenia. AXIS II Deferred. AXIS III Per History and Physical. PLAN: Continue with medication management and behavioral management. This clinician has reviewed the patient's chart and discussed the treatment with staff. Olegario Borrego PsyD. DR: GIOVANNI JOB#: [id number] CC:
--- NOTE | 2017-06-17 16:59 | Infectious Diseases Prog Note ---
Assessment/Plan Problems: (1) Acute diverticulitis Assessment & Plan: await stool for C. diff, and culture, continue levaquin and flagyl empirically (2) Colon cancer Assessment & Plan: may need chemo, Gi and oncology are following (3) Liver lesion Assessment & Plan: suspect mets, due to GI malignancy, may need chemo oncology is following (4) Ulcerative colitis Assessment & Plan: GI is following , continue meds Subjective ROS Limited/Unobtainable: Yes Allergies: Coded Allergies: PENICILLINS (Verified Adverse Reaction, Severe, "passed out", 05/07/17) Subjective she was up in bed, alert and comfortable, not in distress Objective Vital Signs Last 24 Hour Vital Signs Date Time Temp Pulse Resp B/P Pulse Ox O2 Delivery O2 Flow Rate FiO2 06/17/17 12:00 98.0 76 20 148/80 98 Room Air 06/17/17 08:00 97.6 74 20 151/88 97 Room Air 06/17/17 04:00 97.7 64 18 138/83 95 Room Air 06/17/17 00:00 98.1 70 19 145/77 95 Room Air 06/16/17 20:00 97.7 71 20 164/99 92 Room Air Height (Feet): 5 Height (Inches): 5.00 Weight (Pounds): 150 General Appearance: WD/WN, no acute distress HEENT: normocephalic, atraumatic, anicteric, mucous membranes moist, supple, no JVD Respiratory/Chest: chest wall non-tender, lungs clear, normal breath sounds, no respiratory distress, no accessory muscle use Cardiovascular: normal peripheral pulses, normal rate, regular rhythm, no gallop/murmur, no JVD Abdomen: normal bowel sounds, soft, non tender, no organomegaly, non distended , no mass, no scars Extremities: no cyanosis, no clubbing Skin: no rash, no lesions Lymphatic: no neck adenopathy Laboratory Tests Test 06/17/17 06:55 White Blood Count 5.5 K/UL (4.8-10.8) Red Blood Count 4.09 M/UL (4.20-5.40) L Hemoglobin 11.4 G/DL (12.0-16.0) L Hematocrit 35.2 % (37.0-47.0) L Mean Corpuscular Volume 86 FL (80-99) Mean Corpuscular Hemoglobin 28.0 PG (27.0-31.0) Mean Corpuscular Hemoglobin Concent 32.5 G/DL (32.0-36.0) Red Cell Distribution Width 15.1 % (11.6-14.8) H Platelet Count 173 K/UL (150-450) Mean Platelet Volume 5.7 FL (6.5-10.1) L Neutrophils (%) (Auto) 53.6 % (45.0-75.0) Lymphocytes (%) (Auto) 29.7 % (20.0-45.0) Monocytes (%) (Auto) 9.6 % (1.0-10.0) Eosinophils (%) (Auto) 5.6 % (0.0-3.0) H Basophils (%) (Auto) 1.5 % (0.0-2.0) Sodium Level 143 mEQ/L (135-145) Potassium Level 3.8 mEQ/L (3.4-4.9) Chloride Level 107 mEQ/L (98-107) Carbon Dioxide Level 28 mEQ/L (20-30) Anion Gap 8 (5-15) Blood Urea Nitrogen 12 mg/dL (7-23) Creatinine 1.2 mg/dL (0.5-0.9) H Estimat Glomerular Filtration Rate mL/min (>60) Glucose Level 106 mg/dL (74-106) Calcium Level 9.2 mg/dL (8.6-10.2) Phosphorus Level 2.9 mg/dL (2.5-4.8) Magnesium Level 1.7 mg/dL (1.7-2.5) Current Medications Medications (Trade) Dose Ordered Sig/Leonardo Route PRN Reason Start Time Stop Time Status Last Admin Dose Admin Acetaminophen (Tylenol) 650 mg Q4H PRN ORAL fever 06/15/17 23:15 07/15/17 23:14 Al Hydroxide/Mg Hydroxide (Mylanta II) 30 ml Q6H PRN ORAL dyspepsia 06/15/17 23:15 07/15/17 23:14 Dextrose (Dextrose 50%) STAT PRN IV Hypoglycemia 06/15/17 23:15 07/15/17 23:14 Dextrose/Sodium Chloride (D5 0.45% NS) 1,000 ml @ 75 mls/hr [id number] IV 06/15/17 17:40 07/15/17 17:39 06/17/17 09:33 Diphenhydramine HCl (Benadryl) 25 mg Q6H PRN ORAL Itching/Pruritis 06/15/17 23:15 07/15/17 23:14 Docusate Sodium 100 mg 100 mg TWICE A DAY NG 06/16/17 18:00 07/16/17 17:59 Heparin Sodium (Porcine) (Heparin 5000 units/ml) 5,000 units EVERY 12 HOURS SUBQ 06/16/17 09:00 07/16/17 08:59 06/17/17 09:33 Levofloxacin (Levaquin) 50 ml @ 50 mls/hr Q24H IVPB 06/17/17 16:00 06/24/17 15:59 06/17/17 16:44 Lorazepam (Ativan 2mg/ml 1ml) 1 mg Q4H PRN IV agitation 06/15/17 23:15 06/22/17 23:14 Metoclopramide HCl (Reglan) 5 mg Q6H PRN IVP servere nauasea 06/15/17 23:15 07/15/17 23:14 Metronidazole 100 ml @ 100 mls/hr Q8HR IVPB 06/16/17 16:00 06/23/17 15:59 06/17/17 13:58 Morphine Sulfate (Morphine Sulfate) 2 mg Q4H PRN IVP severe Pain (Pain Scale 7-10) 06/15/17 23:15 06/22/17 23:14 Nitroglycerin (Ntg) 0.4 mg Q5M X 3 DOSES PRN SL Prn Chest Pain 06/15/17 23:15 07/15/17 23:14 Ondansetron HCl (Zofran) 4 mg Q6H PRN IVP Nausea & Vomiting 06/15/17 23:15 07/15/17 23:14 Pantoprazole (Protonix) 40 mg DAILY IV 06/16/17 09:00 07/16/17 08:59 06/17/17 09:32 Polyethylene Glycol (Miralax) 17 gm HSPRN PRN ORAL Constipation 06/15/17 23:15 07/15/17 23:14 Promethazine HCl (Phenergan) 25 mg Q8H PRN IV refractory nausea 06/15/17 23:15 07/15/17 23:14 Temazepam (Restoril) 15 mg HSPRN PRN ORAL Insomnia 06/15/17 23:15 06/22/17 23:14 Charito Hernandez M.D. Jun 17, 2017 16:59
--- NOTE | 2017-06-17 19:00 | Pulmonology Progress Note ---
Assessment/Plan Problems: (1) Intractable nausea and vomiting (2) Metastatic adenocarcinoma (3) Schizophrenia (4) HTN (hypertension) (5) Depressed Assessment/Plan symptomatic treatment IV fluids check electrolytes consider palliative care Subjective ROS Limited/Unobtainable: No Constitutional: Reports: no symptoms HEENT: Repors: no symptoms Respiratory: Reports: no symptoms Allergies: Coded Allergies: PENICILLINS (Verified Adverse Reaction, Severe, "passed out", 05/07/17) Objective Last 24 Hour Vital Signs Date Time Temp Pulse Resp B/P Pulse Ox O2 Delivery O2 Flow Rate FiO2 06/17/17 16:00 97.9 80 18 135/77 95 Room Air 06/17/17 12:00 98.0 76 20 148/80 98 Room Air 06/17/17 08:00 97.6 74 20 151/88 97 Room Air 06/17/17 04:00 97.7 64 18 138/83 95 Room Air 06/17/17 00:00 98.1 70 19 145/77 95 Room Air 06/16/17 20:00 97.7 71 20 164/99 92 Room Air Intake and Output 06/16/17 06/17/17 19:00 07:00 Intake Total 995 ml 890 ml Balance 995 ml 890 ml Intake Oral 520 ml 640 ml IV Total 475 ml 250 ml # Voids 4 5 # Bowel Movements 1 1 General Appearance: WD/WN HEENT: normocephalic, atraumatic Respiratory/Chest: chest wall non-tender, lungs clear Breasts: no masses Cardiovascular: normal peripheral pulses Abdomen: normal bowel sounds, soft, non tender Genitourinary: normal external genitalia Extremities: no cyanosis Laboratory Tests 06/17/17 06:55: White Blood Count 5.5, Red Blood Count 4.09L, Hemoglobin 11.4L, Hematocrit 35.2L , Mean Corpuscular Volume 86, Mean Corpuscular Hemoglobin 28.0, Mean Corpuscular Hemoglobin Concent 32.5, Red Cell Distribution Width 15.1H, Platelet Count 173, Mean Platelet Volume 5.7L, Neutrophils (%) (Auto) 53.6, Lymphocytes (%) (Auto) 29.7, Monocytes (%) (Auto) 9.6, Eosinophils (%) (Auto) 5.6H, Basophils (%) (Auto) 1.5, Sodium Level 143, Potassium Level 3.8, Chloride Level 107, Carbon Dioxide Level 28, Anion Gap 8, Blood Urea Nitrogen 12, Creatinine 1.2H, Estimat Glomerular Filtration Rate , Glucose Level 106, Calcium Level 9.2, Phosphorus Level 2.9, Magnesium Level 1.7 Current Medications Medications (Trade) Dose Ordered Sig/Leonardo Route PRN Reason Start Time Stop Time Status Last Admin Dose Admin Acetaminophen (Tylenol) 650 mg Q4H PRN ORAL fever 06/15/17 23:15 07/15/17 23:14 Al Hydroxide/Mg Hydroxide (Mylanta II) 30 ml Q6H PRN ORAL dyspepsia 06/15/17 23:15 07/15/17 23:14 Dextrose (Dextrose 50%) STAT PRN IV Hypoglycemia 06/15/17 23:15 07/15/17 23:14 Dextrose/Sodium Chloride (D5 0.45% NS) 1,000 ml @ 75 mls/hr [id number] IV 06/15/17 17:40 07/15/17 17:39 06/17/17 09:33 Diphenhydramine HCl (Benadryl) 25 mg Q6H PRN ORAL Itching/Pruritis 06/15/17 23:15 07/15/17 23:14 Docusate Sodium 100 mg 100 mg TWICE A DAY NG 06/16/17 18:00 07/16/17 17:59 Heparin Sodium (Porcine) (Heparin 5000 units/ml) 5,000 units EVERY 12 HOURS SUBQ 06/16/17 09:00 07/16/17 08:59 06/17/17 09:33 Levofloxacin (Levaquin) 50 ml @ 50 mls/hr Q24H IVPB 06/17/17 16:00 06/24/17 15:59 06/17/17 16:44 Lorazepam (Ativan 2mg/ml 1ml) 1 mg Q4H PRN IV agitation 06/15/17 23:15 06/22/17 23:14 Metoclopramide HCl (Reglan) 5 mg Q6H PRN IVP servere nauasea 06/15/17 23:15 07/15/17 23:14 Metronidazole 100 ml @ 100 mls/hr Q8HR IVPB 06/16/17 16:00 06/23/17 15:59 06/17/17 13:58 Morphine Sulfate (Morphine Sulfate) 2 mg Q4H PRN IVP severe Pain (Pain Scale 7-10) 06/15/17 23:15 06/22/17 23:14 Nitroglycerin (Ntg) 0.4 mg Q5M X 3 DOSES PRN SL Prn Chest Pain 06/15/17 23:15 07/15/17 23:14 Ondansetron HCl (Zofran) 4 mg Q6H PRN IVP Nausea & Vomiting 06/15/17 23:15 07/15/17 23:14 Pantoprazole (Protonix) 40 mg DAILY IV 06/16/17 09:00 07/16/17 08:59 06/17/17 09:32 Polyethylene Glycol (Miralax) 17 gm HSPRN PRN ORAL Constipation 06/15/17 23:15 07/15/17 23:14 Promethazine HCl (Phenergan) 25 mg Q8H PRN IV refractory nausea 06/15/17 23:15 07/15/17 23:14 Temazepam (Restoril) 15 mg HSPRN PRN ORAL Insomnia 06/15/17 23:15 06/22/17 23:14 MEHRAN BARAJAS Jun 17, 2017 19:00
[2017-06-17 20:00] VITALS: BP 148/84
--- NOTE | 2017-06-17 23:20 | General Progress Note ---
Assessment/Plan Assessment/Plan ASSESSMENT AND RECS: 1. Metastatic colorectal cancer. CEA was 34. CA 19-9 was 128. PET/CT completed. Outpatient management. --> has very poor understanding of disease, have discussed with DPOA as well as PCP, will reach decision shortly on how to proceed --> would be difficult to treat given psych and social issues/[facility] resident 2. Anemia secondary to chronic disease, transfuse as needed. 3. Anemia is very mild. 4. Elevated tumor markers, elevated metastases and colon cancer diagnosis. 5. Acute diverticulitis. 6. History of liver lesion. 7. Ulcerative colitis. 8. The patient lives in [facility]. 9. Continue hydration. Subjective Constitutional: Denies: chills, diaphoresis, fever, malaise, no symptoms, other , weakness HEENT: Denies: blurred vision, double vision, ear discharge, ear pain, eye pain , mouth pain, mouth swelling, no symptoms, nose congestion, nose pain, other, tearing, throat pain, throat swelling Cardiovascular: Denies: chest pain, edema, irregular heart rate, lightheadedness, no symptoms, other, palpitations, syncope Respiratory: Denies: SOB at rest, SOB with excertion, cough, no symptoms, orthopnea, other, shortness of breath, sputum, stridor, wheezing Gastrointestinal/Abdominal: Denies: abdomen distended, abdominal pain, black stools, blood in stool, constipated, diarrhea, difficulty swallowing, nausea, no symptoms, other, poor appetite, poor fluid intake, rectal bleeding, tarry stools, vomiting Genitourinary: Denies: burning, discharge, flank pain, frequency, hematuria, incontinence, no symptoms, other, pain, urgency Neurologic/Psychiatric: Denies: anxiety, depressed, emotional problems, headache, no symptoms, numbness, other, paresthesia, pre-existing deficit, seizure, tingling, tremors, weakness Allergies: Coded Allergies: PENICILLINS (Verified Adverse Reaction, Severe, "passed out", 05/07/17) Subjective stable, no events noted, no fevers Objective Last 24 Hour Vital Signs Date Time Temp Pulse Resp B/P Pulse Ox O2 Delivery O2 Flow Rate FiO2 06/17/17 20:00 98.1 76 20 148/84 92 Room Air 06/17/17 16:00 97.9 80 18 135/77 95 Room Air 06/17/17 12:00 98.0 76 20 148/80 98 Room Air 06/17/17 08:00 97.6 74 20 151/88 97 Room Air 06/17/17 04:00 97.7 64 18 138/83 95 Room Air 06/17/17 00:00 98.1 70 19 145/77 95 Room Air Intake and Output 06/16/17 06/17/17 19:00 07:00 Intake Total 995 ml 890 ml Balance 995 ml 890 ml Intake Oral 520 ml 640 ml IV Total 475 ml 250 ml # Voids 4 5 # Bowel Movements 1 1 Laboratory Tests 06/17/17 06:55: White Blood Count 5.5, Red Blood Count 4.09L, Hemoglobin 11.4L, Hematocrit 35.2L , Mean Corpuscular Volume 86, Mean Corpuscular Hemoglobin 28.0, Mean Corpuscular Hemoglobin Concent 32.5, Red Cell Distribution Width 15.1H, Platelet Count 173, Mean Platelet Volume 5.7L, Neutrophils (%) (Auto) 53.6, Lymphocytes (%) (Auto) 29.7, Monocytes (%) (Auto) 9.6, Eosinophils (%) (Auto) 5.6H, Basophils (%) (Auto) 1.5, Sodium Level 143, Potassium Level 3.8, Chloride Level 107, Carbon Dioxide Level 28, Anion Gap 8, Blood Urea Nitrogen 12, Creatinine 1.2H, Estimat Glomerular Filtration Rate , Glucose Level 106, Calcium Level 9.2, Phosphorus Level 2.9, Magnesium Level 1.7 Height (Feet): 5 Height (Inches): 5.00 Weight (Pounds): 150 General Appearance: no apparent distress EENT: normal ENT inspection Neck: normal alignment Cardiovascular: normal rate Respiratory/Chest: no respiratory distress Abdomen: non tender Extremities: non-tender Edema: 1+ Leg (L), 1+ Leg (R) Edema: mild edema Neurologic: alert Skin: warm/dry Cheko Samuel Jun 17, 2017 23:20
[2017-06-18 00:02] VITALS: BP_SYST 127; BP_SYST 156; BP_DIAS 77; BP_DIAS 88
[2017-06-18 04:00] VITALS: BP 148/79
[2017-06-18] MEDS: metroNIDAZOLE 500mg 100 ML IVPB SCH (06:03)
[2017-06-18 07:21] VITALS: BP 153/90
--- NOTE | 2017-06-18 07:51 | Pulmonology Progress Note ---
Assessment/Plan Assessment/Plan ASSESSMENT intractable n/v metastatic adenocarcinoma of colon liver mass renal mass elevated tumor markers HTN acute diverticulitis mild anemia of chronic disease schizophrenia depression PLAN OF CARE [place] floor IVF CT A/P with acute diverticulitis, multiple hepatic masses, suspicious for malignancy PET scan revealed colon Ca with mets elevated tumor markers CEA-34, CA 19-9- 128 heme/onco follows patient already seen by onco as outpacing fup with with outpt oncology upon dc abx, ID follows, change to po upon dc check stool C dif diet as tolerated a/emetic prn pain management bowel regimen BP management GI follows GI prophylaxis electrolyte replacement as needed sx seen and evaluated no acute surgical intervention necessary abd US no gallstones, no dilated ducts , + renal mass, + liver mass consider palliative care case discussed and evaluated by supervising physician Subjective Allergies: Coded Allergies: PENICILLINS (Verified Adverse Reaction, Severe, "passed out", 05/07/17) Objective Last 24 Hour Vital Signs Date Time Temp Pulse Resp B/P Pulse Ox O2 Delivery O2 Flow Rate FiO2 06/18/17 07:21 97.5 66 14 153/90 96 Room Air 06/18/17 04:00 97.4 60 20 148/79 97 Room Air 06/18/17 00:02 97.7 70 20 156/88 96 Room Air 06/17/17 20:00 98.1 76 20 148/84 92 Room Air 06/17/17 16:00 97.9 80 18 135/77 95 Room Air 06/17/17 12:00 98.0 76 20 148/80 98 Room Air 06/17/17 08:00 97.6 74 20 151/88 97 Room Air Intake and Output 06/17/17 06/18/17 19:00 07:00 Intake Total 1400 ml 195 ml Balance 1400 ml 195 ml Intake Oral 800 ml 120 ml IV Total 600 ml 75 ml # Voids 5 2 General Appearance: no acute distress, other - awake, alert, responsive female HEENT: normocephalic, atraumatic, anicteric, mucous membranes moist Respiratory/Chest: lungs clear, no respiratory distress, no accessory muscle use Cardiovascular: normal rate, regular rhythm Abdomen: soft, non tender Genitourinary: normal external genitalia Extremities: no edema, pedal pulses normal Neurologic/Psychiatric: alert, responsive, depressed affect - flat affect, no eye conatct Musculoskeletal: normal muscle bulk Current Medications Medications (Trade) Dose Ordered Sig/Leonardo Route PRN Reason Start Time Stop Time Status Last Admin Dose Admin Acetaminophen (Tylenol) 650 mg Q4H PRN ORAL fever 06/15/17 23:15 07/15/17 23:14 Al Hydroxide/Mg Hydroxide (Mylanta II) 30 ml Q6H PRN ORAL dyspepsia 06/15/17 23:15 07/15/17 23:14 Dextrose (Dextrose 50%) STAT PRN IV Hypoglycemia 06/15/17 23:15 07/15/17 23:14 Dextrose/Sodium Chloride (D5 0.45% NS) 1,000 ml @ 75 mls/hr [id number] IV 06/15/17 17:40 07/15/17 17:39 06/17/17 21:00 Diphenhydramine HCl (Benadryl) 25 mg Q6H PRN ORAL Itching/Pruritis 06/15/17 23:15 07/15/17 23:14 Docusate Sodium 100 mg 100 mg TWICE A DAY NG 06/16/17 18:00 07/16/17 17:59 Heparin Sodium (Porcine) (Heparin 5000 units/ml) 5,000 units EVERY 12 HOURS SUBQ 06/16/17 09:00 07/16/17 08:59 06/17/17 20:59 Levofloxacin (Levaquin) 50 ml @ 50 mls/hr Q24H IVPB 06/17/17 16:00 06/24/17 15:59 06/17/17 16:44 Lorazepam (Ativan 2mg/ml 1ml) 1 mg Q4H PRN IV agitation 06/15/17 23:15 06/22/17 23:14 Metoclopramide HCl (Reglan) 5 mg Q6H PRN IVP servere nauasea 06/15/17 23:15 07/15/17 23:14 Metronidazole 100 ml @ 100 mls/hr Q8HR IVPB 06/16/17 16:00 06/23/17 15:59 06/18/17 06:03 Morphine Sulfate (Morphine Sulfate) 2 mg Q4H PRN IVP severe Pain (Pain Scale 7-10) 06/15/17 23:15 06/22/17 23:14 Nitroglycerin (Ntg) 0.4 mg Q5M X 3 DOSES PRN SL Prn Chest Pain 06/15/17 23:15 07/15/17 23:14 Ondansetron HCl (Zofran) 4 mg Q6H PRN IVP Nausea & Vomiting 06/15/17 23:15 07/15/17 23:14 Pantoprazole (Protonix) 40 mg DAILY IV 06/16/17 09:00 07/16/17 08:59 06/17/17 09:32 Polyethylene Glycol (Miralax) 17 gm HSPRN PRN ORAL Constipation 06/15/17 23:15 07/15/17 23:14 Promethazine HCl (Phenergan) 25 mg Q8H PRN IV refractory nausea 06/15/17 23:15 07/15/17 23:14 Temazepam (Restoril) 15 mg HSPRN PRN ORAL Insomnia 06/15/17 23:15 06/22/17 23:14 [facility]Good [facility] HospitalMayelin Rice NP Jun 18, 2017 07:51
[2017-06-18 08:45] LABS: BASOPHILS % (AUTO) 1.9 % (0.0-2.0); EOSINOPHILS % (AUTO) 4.7 % (0.0-3.0); LYMPHOCYTES % (AUTO) 27.3 % (20.0-45.0); MEAN CORPUSCULAR HEMOGLOBIN 28.2 PG (27.0-31.0); MEAN CORPUSCULAR HGB CONC 32.8 G/DL (32.0-36.0); MEAN CORPUSCULAR VOLUME 86 FL (80-99); MEAN PLATELET VOLUME 5.3 FL (6.5-10.1); MONOCYTES % (AUTO) 9.2 % (1.0-10.0); NEUTROPHILS % (AUTO) 56.9 % (45.0-75.0); PLATELET COUNT 188 K/UL (150-450); RED BLOOD COUNT 4.49 M/UL (4.20-5.40); RED CELL DISTRIBUTION WIDTH 15.2 % (11.6-14.8); WHITE BLOOD COUNT 5.6 K/UL (4.8-10.8)
[2017-06-18 08:58] LABS: ANION GAP 10 (5-15); CALCIUM 10.1 mg/dL (8.6-10.2); CARBON DIOXIDE 29 mEQ/L (20-30); CHLORIDE 102 mEQ/L (98-107); CREATININE 1.3 mg/dL (0.5-0.9); HEMOLYSIS 5; POTASSIUM 4.3 mEQ/L (3.4-4.9); SODIUM 141 mEQ/L (135-145)
[2017-06-18] MEDS: Docusate 100mg/10ml Liq NG SCH ×2 (09:00→10:01)
[2017-06-18] MEDS: Pantoprazole Inj IV SCH (10:02)
[2017-06-18] MEDS: Heparin 5000 units/ml inj SUBQ SCH (10:03)
[2017-06-18 11:20] VITALS: BP 134/78
[2017-06-18] MEDS: D5 1/2NS 1,000 ML IV SCH (12:20)
--- NOTE | 2017-06-18 13:27 | General Surgery Progress Note ---
General Surgery-Progress Note Subjective Symptoms: improved Additional Comments no acute events. comfortable. +flatus, +BM Objective Last 24 Hour Vital Signs Date Time Temp Pulse Resp B/P Pulse Ox O2 Delivery O2 Flow Rate FiO2 06/18/17 11:20 97.5 68 14 134/78 98 Room Air 06/18/17 07:21 97.5 66 14 153/90 96 Room Air 06/18/17 04:00 97.4 60 20 148/79 97 Room Air 06/18/17 00:02 97.7 70 20 156/88 96 Room Air 06/17/17 20:00 98.1 76 20 148/84 92 Room Air 06/17/17 16:00 97.9 80 18 135/77 95 Room Air I&O Intake and Output 06/17/17 06/18/17 19:00 07:00 Intake Total 1400 ml 195 ml Balance 1400 ml 195 ml Intake Oral 800 ml 120 ml IV Total 600 ml 75 ml # Voids 5 2 Cardiovascular: RSR Respiratory: clear Abdomen: soft, non-tender, present bowel sounds Extremities: no tenderness, no cyanosis Laboratory Tests Test 06/18/17 07:50 White Blood Count 5.6 K/UL (4.8-10.8) Red Blood Count 4.49 M/UL (4.20-5.40) Hemoglobin 12.6 G/DL (12.0-16.0) Hematocrit 38.6 % (37.0-47.0) Mean Corpuscular Volume 86 FL (80-99) Mean Corpuscular Hemoglobin 28.2 PG (27.0-31.0) Mean Corpuscular Hemoglobin Concent 32.8 G/DL (32.0-36.0) Red Cell Distribution Width 15.2 % (11.6-14.8) H Platelet Count 188 K/UL (150-450) Mean Platelet Volume 5.3 FL (6.5-10.1) L Neutrophils (%) (Auto) 56.9 % (45.0-75.0) Lymphocytes (%) (Auto) 27.3 % (20.0-45.0) Monocytes (%) (Auto) 9.2 % (1.0-10.0) Eosinophils (%) (Auto) 4.7 % (0.0-3.0) H Basophils (%) (Auto) 1.9 % (0.0-2.0) Sodium Level 141 mEQ/L (135-145) Potassium Level 4.3 mEQ/L (3.4-4.9) Chloride Level 102 mEQ/L (98-107) Carbon Dioxide Level 29 mEQ/L (20-30) Anion Gap 10 (5-15) Blood Urea Nitrogen 14 mg/dL (7-23) Creatinine 1.3 mg/dL (0.5-0.9) H Estimat Glomerular Filtration Rate mL/min (>60) Glucose Level 158 mg/dL (74-106) H Calcium Level 10.1 mg/dL (8.6-10.2) Plan Problems: (1) Colon cancer Assessment & Plan: 72F with stage IV colon cancer admitted for nausea and emesis which have resolved. Afebrile, HD stable, labs okay. CT scan reviewed and no obstruction or dilated bowel. No acute surgical intervention necessary Diet as tolerated Will follow Thank you for this consultation Ned Bush Jun 18, 2017 13:27
--- NOTE | 2017-06-18 13:54 | General Progress Note ---
Assessment/Plan Problem List: (1) Anemia ICD Codes: D64.9 - Anemia, unspecified SNOMED: 952862353 (2) Colon cancer ICD Codes: C18.9 - Malignant neoplasm of colon, unspecified SNOMED: 239676536 (3) Liver lesion ICD Codes: K76.9 - Liver disease, unspecified SNOMED: 600907145 (4) Intractable nausea and vomiting ICD Codes: R11.2 - Nausea with vomiting, unspecified SNOMED: 576465091, 053451774 Status: stable, progressing, tolerating diet Assessment/Plan ot pt diet abvs gi heme f/u dc to snf Subjective Constitutional: Reports: weakness Allergies: Coded Allergies: PENICILLINS (Verified Adverse Reaction, Severe, "passed out", 05/07/17) All Systems: reviewed and negative except above Subjective calm in bed Objective Last 24 Hour Vital Signs Date Time Temp Pulse Resp B/P Pulse Ox O2 Delivery O2 Flow Rate FiO2 06/18/17 11:20 97.5 68 14 134/78 98 Room Air 06/18/17 07:21 97.5 66 14 153/90 96 Room Air 06/18/17 04:00 97.4 60 20 148/79 97 Room Air 06/18/17 00:02 97.7 70 20 156/88 96 Room Air 06/17/17 20:00 98.1 76 20 148/84 92 Room Air 06/17/17 16:00 97.9 80 18 135/77 95 Room Air Intake and Output 06/17/17 06/18/17 19:00 07:00 Intake Total 1400 ml 195 ml Balance 1400 ml 195 ml Intake Oral 800 ml 120 ml IV Total 600 ml 75 ml # Voids 5 2 Laboratory Tests 06/18/17 07:50: White Blood Count 5.6, Red Blood Count 4.49, Hemoglobin 12.6, Hematocrit 38.6, Mean Corpuscular Volume 86, Mean Corpuscular Hemoglobin 28.2, Mean Corpuscular Hemoglobin Concent 32.8, Red Cell Distribution Width 15.2H, Platelet Count 188, Mean Platelet Volume 5.3L, Neutrophils (%) (Auto) 56.9, Lymphocytes (%) (Auto) 27.3, Monocytes (%) (Auto) 9.2, Eosinophils (%) (Auto) 4.7H, Basophils (%) (Auto ) 1.9, Sodium Level 141, Potassium Level 4.3, Chloride Level 102, Carbon Dioxide Level 29, Anion Gap 10, Blood Urea Nitrogen 14, Creatinine 1.3H, Estimat Glomerular Filtration Rate , Glucose Level 158H, Calcium Level 10.1 Height (Feet): 5 Height (Inches): 5.00 Weight (Pounds): 150 General Appearance: lethargic EENT: normal ENT inspection Neck: normal alignment Cardiovascular: normal peripheral pulses, normal rate, regular rhythm Respiratory/Chest: chest wall non-tender, lungs clear, normal breath sounds Abdomen: normal bowel sounds, non tender, soft Extremities: normal inspection Edema: no edema noted Arm (L), no edema noted Arm (R), no edema noted Leg (L), no edema noted Leg (R), no edema noted Pedal (L), no edema noted Pedal (R), no edema noted Generalized Neurologic: responsive, motor weakness Skin: normal pigmentation, warm/dry JANELLE RENEE Jun 18, 2017 13:54
--- NOTE | 2017-06-18 14:15 | GI Progress Note ---
Assessment/Plan Problems: (1) Intractable nausea and vomiting ICD Codes: R11.2 - Nausea with vomiting, unspecified SNOMED: 127458636, 833951254 (2) Metastatic adenocarcinoma ICD Codes: C79.9 - Secondary malignant neoplasm of unspecified site SNOMED: 7285167, 552742932 (3) Depressed ICD Codes: F32.9 - Major depressive disorder, single episode, unspecified SNOMED: 58881944 (4) Colon cancer ICD Codes: C18.9 - Malignant neoplasm of colon, unspecified SNOMED: 172349624 (5) Anemia ICD Codes: D64.9 - Anemia, unspecified SNOMED: 210473268 Status: stable Status Narrative Discussed with Dr. Eldridge. Assessment/Plan PET scan reviewed with patient >> colon CA with met pt requires Oncology consult, needs to s/w POA ok for DC per GI standpoint symptomatic treatment adv diet as tolerated zofran prn ppi IV hydration + electrolyte replacement fu labs Subjective Subjective N/V resolved resting Objective Last 24 Hour Vital Signs Date Time Temp Pulse Resp B/P Pulse Ox O2 Delivery O2 Flow Rate FiO2 06/18/17 11:20 97.5 68 14 134/78 98 Room Air 06/18/17 07:21 97.5 66 14 153/90 96 Room Air 06/18/17 04:00 97.4 60 20 148/79 97 Room Air 06/18/17 00:02 97.7 70 20 156/88 96 Room Air 06/17/17 20:00 98.1 76 20 148/84 92 Room Air 06/17/17 16:00 97.9 80 18 135/77 95 Room Air Intake and Output 06/17/17 06/18/17 19:00 07:00 Intake Total 1400 ml 195 ml Balance 1400 ml 195 ml Intake Oral 800 ml 120 ml IV Total 600 ml 75 ml # Voids 5 2 Laboratory Tests Test 06/18/17 07:50 White Blood Count 5.6 K/UL (4.8-10.8) Red Blood Count 4.49 M/UL (4.20-5.40) Hemoglobin 12.6 G/DL (12.0-16.0) Hematocrit 38.6 % (37.0-47.0) Mean Corpuscular Volume 86 FL (80-99) Mean Corpuscular Hemoglobin 28.2 PG (27.0-31.0) Mean Corpuscular Hemoglobin Concent 32.8 G/DL (32.0-36.0) Red Cell Distribution Width 15.2 % (11.6-14.8) H Platelet Count 188 K/UL (150-450) Mean Platelet Volume 5.3 FL (6.5-10.1) L Neutrophils (%) (Auto) 56.9 % (45.0-75.0) Lymphocytes (%) (Auto) 27.3 % (20.0-45.0) Monocytes (%) (Auto) 9.2 % (1.0-10.0) Eosinophils (%) (Auto) 4.7 % (0.0-3.0) H Basophils (%) (Auto) 1.9 % (0.0-2.0) Sodium Level 141 mEQ/L (135-145) Potassium Level 4.3 mEQ/L (3.4-4.9) Chloride Level 102 mEQ/L (98-107) Carbon Dioxide Level 29 mEQ/L (20-30) Anion Gap 10 (5-15) Blood Urea Nitrogen 14 mg/dL (7-23) Creatinine 1.3 mg/dL (0.5-0.9) H Estimat Glomerular Filtration Rate mL/min (>60) Glucose Level 158 mg/dL (74-106) H Calcium Level 10.1 mg/dL (8.6-10.2) Height (Feet): 5 Height (Inches): 5.00 Weight (Pounds): 150 General Appearance: no apparent distress, alert Cardiovascular: normal rate Respiratory/Chest: normal breath sounds, no respiratory distress Abdominal Exam: normal bowel sounds, non tender, soft Extremities: normal range of motion Julianna Nguyen N.P. Jun 18, 2017 14:15
[2017-06-18 15:11] VITALS: BP 158/88
--- NOTE | 2017-06-18 15:14 | Infectious Diseases Prog Note ---
Assessment/Plan Problems: (1) Acute diverticulitis Assessment & Plan: await stool for C. diff, and culture, continue levaquin and flagyl empirically (2) Colon cancer Assessment & Plan: may need chemo, Gi and oncology are following (3) Liver lesion Assessment & Plan: suspect mets, due to GI malignancy, may need chemo oncology is following (4) Ulcerative colitis Assessment & Plan: GI is following , continue meds Subjective Constitutional: Reports: no symptoms HEENT: Reports: no symptoms Respiratory: Reports: no symptoms Breasts: Reports: no symptoms Cardiovascular: Reports: no symptoms Gastrointestinal/Abdominal: Reports: no symptoms Genitourinary: Reports: no symptoms Neurologic: Reports: no symptoms Psychiatric: Reports: no symptoms Skin: Reports: no symptoms Endocrine: Reports: no symptoms Allergies: Coded Allergies: PENICILLINS (Verified Adverse Reaction, Severe, "passed out", 05/07/17) Subjective she was up in bed, alert and comfortable, not in distress Objective Vital Signs Last 24 Hour Vital Signs Date Time Temp Pulse Resp B/P Pulse Ox O2 Delivery O2 Flow Rate FiO2 06/18/17 11:20 97.5 68 14 134/78 98 Room Air 06/18/17 07:21 97.5 66 14 153/90 96 Room Air 06/18/17 04:00 97.4 60 20 148/79 97 Room Air 06/18/17 00:02 97.7 70 20 156/88 96 Room Air 06/17/17 20:00 98.1 76 20 148/84 92 Room Air 06/17/17 16:00 97.9 80 18 135/77 95 Room Air Height (Feet): 5 Height (Inches): 5.00 Weight (Pounds): 150 General Appearance: WD/WN, no acute distress HEENT: normocephalic, atraumatic, anicteric, mucous membranes moist, PERRL Respiratory/Chest: chest wall non-tender, lungs clear, normal breath sounds, no respiratory distress, no accessory muscle use Cardiovascular: normal peripheral pulses, normal rate, regular rhythm, no gallop/murmur, no JVD Abdomen: normal bowel sounds, soft, non tender, no organomegaly, non distended , no mass, no scars Extremities: no cyanosis, no clubbing Skin: no rash, no lesions, no ulcers Microbiology Date/Time Source Procedure Growth Status 06/16/17 05:15 Nasal Nares MRSA Culture - Final NO METHICILLIN RESISTANT STAPH AUREUS... Complete 06/16/17 20:40 Stool Stool Culture - Preliminary Resulted 06/16/17 05:15 Rectum VRE Culture - Final NO VANCOMYCIN RESISTANT ENTEROCOCCUS ... Complete Laboratory Tests Test 06/18/17 07:50 White Blood Count 5.6 K/UL (4.8-10.8) Red Blood Count 4.49 M/UL (4.20-5.40) Hemoglobin 12.6 G/DL (12.0-16.0) Hematocrit 38.6 % (37.0-47.0) Mean Corpuscular Volume 86 FL (80-99) Mean Corpuscular Hemoglobin 28.2 PG (27.0-31.0) Mean Corpuscular Hemoglobin Concent 32.8 G/DL (32.0-36.0) Red Cell Distribution Width 15.2 % (11.6-14.8) H Platelet Count 188 K/UL (150-450) Mean Platelet Volume 5.3 FL (6.5-10.1) L Neutrophils (%) (Auto) 56.9 % (45.0-75.0) Lymphocytes (%) (Auto) 27.3 % (20.0-45.0) Monocytes (%) (Auto) 9.2 % (1.0-10.0) Eosinophils (%) (Auto) 4.7 % (0.0-3.0) H Basophils (%) (Auto) 1.9 % (0.0-2.0) Sodium Level 141 mEQ/L (135-145) Potassium Level 4.3 mEQ/L (3.4-4.9) Chloride Level 102 mEQ/L (98-107) Carbon Dioxide Level 29 mEQ/L (20-30) Anion Gap 10 (5-15) Blood Urea Nitrogen 14 mg/dL (7-23) Creatinine 1.3 mg/dL (0.5-0.9) H Estimat Glomerular Filtration Rate mL/min (>60) Glucose Level 158 mg/dL (74-106) H Calcium Level 10.1 mg/dL (8.6-10.2) Current Medications Medications (Trade) Dose Ordered Sig/Leonardo Route PRN Reason Start Time Stop Time Status Last Admin Dose Admin Acetaminophen (Tylenol) 650 mg Q4H PRN ORAL fever 06/15/17 23:15 07/15/17 23:14 Al Hydroxide/Mg Hydroxide (Mylanta II) 30 ml Q6H PRN ORAL dyspepsia 06/15/17 23:15 07/15/17 23:14 Dextrose (Dextrose 50%) STAT PRN IV Hypoglycemia 06/15/17 23:15 07/15/17 23:14 Dextrose/Sodium Chloride (D5 0.45% NS) 1,000 ml @ 75 mls/hr [id number] IV 06/15/17 17:40 07/15/17 17:39 06/17/17 21:00 Diphenhydramine HCl (Benadryl) 25 mg Q6H PRN ORAL Itching/Pruritis 06/15/17 23:15 07/15/17 23:14 Docusate Sodium 100 mg 100 mg TWICE A DAY NG 06/16/17 18:00 07/16/17 17:59 Heparin Sodium (Porcine) (Heparin 5000 units/ml) 5,000 units EVERY 12 HOURS SUBQ 06/16/17 09:00 07/16/17 08:59 06/18/17 10:03 Levofloxacin (Levaquin) 50 ml @ 50 mls/hr Q24H IVPB 06/17/17 16:00 06/24/17 15:59 06/17/17 16:44 Lorazepam (Ativan 2mg/ml 1ml) 1 mg Q4H PRN IV agitation 06/15/17 23:15 06/22/17 23:14 Metoclopramide HCl (Reglan) 5 mg Q6H PRN IVP servere naandrewsea 06/15/17 23:15 07/15/17 23:14 Metronidazole 100 ml @ 100 mls/hr Q8HR IVPB 06/16/17 16:00 06/23/17 15:59 06/18/17 06:03 Morphine Sulfate (Morphine Sulfate) 2 mg Q4H PRN IVP severe Pain (Pain Scale 7-10) 06/15/17 23:15 06/22/17 23:14 Nitroglycerin (Ntg) 0.4 mg Q5M X 3 DOSES PRN SL Prn Chest Pain 06/15/17 23:15 07/15/17 23:14 Ondansetron HCl (Zofran) 4 mg Q6H PRN IVP Nausea & Vomiting 06/15/17 23:15 07/15/17 23:14 Pantoprazole (Protonix) 40 mg DAILY IV 06/16/17 09:00 07/16/17 08:59 06/18/17 10:02 Polyethylene Glycol (Miralax) 17 gm HSPRN PRN ORAL Constipation 06/15/17 23:15 07/15/17 23:14 Promethazine HCl (Phenergan) 25 mg Q8H PRN IV refractory nausea 06/15/17 23:15 07/15/17 23:14 Temazepam (Restoril) 15 mg HSPRN PRN ORAL Insomnia 06/15/17 23:15 06/22/17 23:14 Charito Hernandez M.D. Jun 18, 2017 15:14
[2017-06-18] MEDS ORDERED: ACETAMINOPHEN325 M1 ORAL (16:31)
[2017-06-18] MEDS ORDERED: MYLANTA30 M1 PO (16:33)
[2017-06-18] MEDS ORDERED: BENADRYL25 MG/10 M PO (16:34)
[2017-06-18] MEDS ORDERED: HEPARIN SO5000 UNIT2 SUBQ (16:35)
[2017-06-18] MEDS ORDERED: DOCUSATE S50 MG/5 ML PO (16:35)
[2017-06-18] MEDS ORDERED: LEVOFLOXACIN250 MG ORAL (16:36)
[2017-06-18] MEDS ORDERED: LORAZEPAM2 MG ORAL (16:38)
[2017-06-18] MEDS ORDERED: METOCLOPRAMIDE H5 M1 ORAL (16:40)
[2017-06-18] MEDS ORDERED: METRONIDAZ500 MG/100 PO (16:40)
[2017-06-18] MEDS ORDERED: MORPHINE SU4 MG/1 M1 IV (16:42)
[2017-06-18] MEDS ORDERED: MORPHINE SU2 MG/1 M1 PO (16:42)
[2017-06-18] MEDS ORDERED: ZOFRAN4 M1 ORAL (16:45)
[2017-06-18] MEDS ORDERED: NITROGLYCERIN0.4 MG SL (16:45)
[2017-06-18] MEDS ORDERED: PROTONIX40 MG ORAL (16:47)
[2017-06-18] MEDS ORDERED: POLYETHYLENE GL17 GM ORAL (16:49)
[2017-06-18] MEDS ORDERED: PHENERGAN SUPP25 MG ORAL (16:50)
[2017-06-18] MEDS ORDERED: TEMAZEPAM15 MG ORAL (16:51)
[2017-06-18] MEDS ORDERED: FLAGYL ER750 MG ORAL (16:58)
[2017-06-18] MEDS ORDERED: FLAGYL375 MG ORAL (16:58)
[2017-06-18] MEDS ORDERED: METRONIDAZOLE500 MG ORAL (17:00)
[2017-06-18] MEDS ORDERED: DIPHENHYDRAMINE25 M3 ORAL (17:04)
--- NOTE | 2017-06-18 17:11 | General Progress Note ---
Assessment/Plan Assessment/Plan ASSESSMENT AND RECS: 1. Metastatic colorectal cancer. CEA was 34. CA 19-9 was 128. PET/CT completed. Outpatient management. --> has very poor understanding of disease, have discussed with DPOA as well as PCP, will reach decision shortly on how to proceed --> would be difficult to treat given psych and social issues/SNF resident --> have discussed extensively with bilingual patient support caseworker, ELLE Moreira, amphibious operations officer, will set up chemotherapy treatments from [id number] 2. Anemia secondary to chronic disease, transfuse as needed. 3. Anemia is very mild. 4. Elevated tumor markers, elevated metastases and colon cancer diagnosis. 5. Acute diverticulitis. 6. History of liver lesion. 7. Ulcerative colitis. 8. The patient lives in [facility]. 9. Continue hydration. Subjective Constitutional: Reports: no symptoms HEENT: Reports: no symptoms Cardiovascular: Reports: no symptoms Respiratory: Reports: no symptoms Gastrointestinal/Abdominal: Reports: no symptoms Genitourinary: Reports: no symptoms Neurologic/Psychiatric: Reports: no symptoms Endocrine: Reports: no symptoms Hematologic/Lymphatic: Reports: anemia Allergies: Coded Allergies: PENICILLINS (Verified Adverse Reaction, Severe, "passed out", 05/07/17) Subjective n/v resolved, NAD Objective Last 24 Hour Vital Signs Date Time Temp Pulse Resp B/P Pulse Ox O2 Delivery O2 Flow Rate FiO2 06/18/17 15:11 98.2 89 16 158/88 96 Room Air 06/18/17 11:20 97.5 68 14 134/78 98 Room Air 06/18/17 07:21 97.5 66 14 153/90 96 Room Air 06/18/17 04:00 97.4 60 20 148/79 97 Room Air 06/18/17 00:02 97.7 70 20 156/88 96 Room Air 06/17/17 20:00 98.1 76 20 148/84 92 Room Air Intake and Output 06/17/17 06/18/17 19:00 07:00 Intake Total 1400 ml 195 ml Balance 1400 ml 195 ml Intake Oral 800 ml 120 ml IV Total 600 ml 75 ml # Voids 5 2 Laboratory Tests 06/18/17 07:50: White Blood Count 5.6, Red Blood Count 4.49, Hemoglobin 12.6, Hematocrit 38.6, Mean Corpuscular Volume 86, Mean Corpuscular Hemoglobin 28.2, Mean Corpuscular Hemoglobin Concent 32.8, Red Cell Distribution Width 15.2H, Platelet Count 188, Mean Platelet Volume 5.3L, Neutrophils (%) (Auto) 56.9, Lymphocytes (%) (Auto) 27.3, Monocytes (%) (Auto) 9.2, Eosinophils (%) (Auto) 4.7H, Basophils (%) (Auto ) 1.9, Sodium Level 141, Potassium Level 4.3, Chloride Level 102, Carbon Dioxide Level 29, Anion Gap 10, Blood Urea Nitrogen 14, Creatinine 1.3H, Estimat Glomerular Filtration Rate , Glucose Level 158H, Calcium Level 10.1 Height (Feet): 5 Height (Inches): 5.00 Weight (Pounds): 150 General Appearance: no apparent distress EENT: PERRL/EOMI Neck: non-tender Cardiovascular: normal peripheral pulses Respiratory/Chest: chest wall non-tender Extremities: non-tender 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
[2017-06-18] MEDS ORDERED: D5 1/2NS 1000ml IV ONE (17:29)
[2017-06-18] MEDS ORDERED: 1/2 NS 1000ml IV ONE (17:29)
[2017-06-18] MEDS ORDERED: metroNIDAZOLE 500mg tab ORAL SCH (22:00)
--- NOTE | 2017-06-20 21:47 | Progress Note ---
DATE: 06/17/2017 PSYCHOTHERAPY CONSULTATION PROGRESS NOTE CONSULTING PHYSICIAN: Olegario Borrego M.D. TREATING ATTENDING PHYSICIAN: Michael Moreira D.O. SUBJECTIVE: The patient is a 72-year-old female patient. The patient admitted to the hospital for vomiting and dehydration. The patient continues to remains slightly irritable and anxious. She has thoughts of agitation and her current medical condition; however, she is cooperative. This clinician is providing the patient with reality orientation, supportive psychotherapy, encouraging the patient to participate in treatment milieu. Continue her medication management and behavioral management. This clinician has reviewed the patient's chart, discussed treatment with nursing staff. Olegario Borrego PsyD. DR: GIOVANNI JOB#: [id number] CC:
--- NOTE | 2017-06-20 22:17 | Progress Note ---
DATE: 06/18/2017 PSYCHOTHERAPY CONSULTATION PROGRESS NOTE CONSULTING PHYSICIAN: Olegario Borrego M.D. TREATING ATTENDING PHYSICIAN: Michael Moreira D.O. SUBJECTIVE: The patient is a 72-year-old female patient diagnosed to have paranoid schizophrenia. The patient states that she has been feeling anxious. States that her nausea comes and goes and this aggravates her, however, she denies suicidal and homicidal thoughts of ideation. She has been cooperative, alert and oriented x3, person, place, and time. Mood is anxious. Affect is congruent. Thought process is fairly disorganized. The patient has poor attention and concentration. Poor insight, judgment, and impulse control. PLAN: This clinician assessed this patient. Provided the patient with reality orientation and supportive psychotherapy. Continue with medication management and behavioral management. This clinician has reviewed the patient's chart and discussed the treatment with nursing staff. Olegario Borrego PsyD. DR: GIOVANNI JOB#: [id number] CC:
--- NOTE | 2017-06-21 09:54 | Discharge Summary ---
Discharge Summary Hospital Course Date of Admission Jun 15, 2017 at 20:40 Date of Discharge Jun 18, 2017 at 17:30 Admitting Diagnosis vomiting, dehydration HPI Radha Joiner is a 72 year old female who was admitted on Jun 15, 2017 at 20:40 for Vomitting ,Dehydration Hospital Course dc summary #[id number] Discharge Medications Continued Medications: Acetaminophen* (Acetaminophen 325MG Tablet*) 325 Mg Tablet 650 MG ORAL Q4H PRN for Fever/Headache/Mild Pain, TAB Al Hydroxide/mg Hydroxide (Mag-Al Liquid) 30 Ml Oral.susp 30 ML PO EVERY 6 HOURS, ML Diphenhydramine Hcl (Diphenhydramine Hcl) 25 Mg Tablet 25 MG ORAL Q6H PRN for Itching, #30 TAB 0 Refills Docusate Sodium (Docusate Sodium) 50 Mg/5 Ml Liquid 50 MG PO TWICE A DAY, ML Heparin Sod (Porcine) (Heparin Sodium*) 5 000/1 Ml Vial 5000 UNITS SUBQ EVERY 12 HOURS, VIAL Levofloxacin (Levofloxacin*) 250 Mg Tablet 250 MG ORAL DAILY, TAB Lorazepam* (Lorazepam*) 2 Mg Tablet 2 MG ORAL EVERY 4 HOURS for Agitation, TAB Metoclopramide Hcl* (Metoclopramide Hcl*) 5 Mg Tablet 5 MG ORAL EVERY 6 HOURS for Nausea & Vomiting, TAB Metronidazole* (Flagyl*) 500 Mg Tablet 500 MG ORAL EVERY 8 HOURS, TAB Nitroglycerin (Nitroglycerin) 0.4 Mg Tab.subl 0.4 MG SL, TAB Ondansetron (Zofran) 4 Mg Tablet 4 MG ORAL Q6H PRN for Nausea & Vomiting, TAB Pantoprazole* (Protonix*) 40 Mg Tablet.dr 40 MG ORAL DAILY, TAB Polyethylene Glycol 3350* (Polyethylene Glycol 3350*) 17 Gm Powd.pack 17 GM ORAL for Constipation, PACKET Promethazine HCl (Promethegan) 25 Mg Supp.rect 25 MG ORAL Q8HR PRN for Nausea & Vomiting, SUPP Temazepam (Temazepam*) 15 Mg Capsule 15 MG ORAL for Insomnia, #30 CAP 0 Refills Discharge Discharge Disposition Patient was discharged to SNF/Subacute Facility(03) Discharge Diagnoses: Zachery (Vanchtein),Mayelin ACUÑA Jun 21, 2017 09:54
--- NOTE | 2017-06-21 23:01 | Discharge Summary 2 SIG ---
DATE OF ADMISSION: 06/15/2017 DATE OF DISCHARGE: 06/18/2017 REASON FOR ADMISSION: The patient is a 72 years old female with history of colon cancer and liver metastasis, presented to the emergency department with abdominal pain, nausea, and vomiting. The patient is seen day prior to presentation to ED under gastrointestinal clinic and PET scan at that time revealed colon CA with metastasis. In the emergency department, CT of the abdomen and pelvis was done, which revealed acute diverticulitis, the patient was afebrile, no leukocytosis. The patient admitted for further management. ADMITTING DIAGNOSES: Include, 1. Acute diverticulitis. 2. Intractable nausea and vomiting. 3. Metastatic adenocarcinoma of colon cancer. 4. Anemia. 5. Hypertension. 6. Schizophrenia. 7. Ulcerative colitis. HOSPITAL STAY: The patient admitted, initially NPO. Gastrointestinal evaluation and Surgery evaluation requested along with mental tester and photogrammetric engineer. Per surgery, the patient has a colon cancer stage IV, who admitted with nausea and vomiting, which resolved. CT scan revealed no obstruction and therefore no acute surgical interventions were necessarily. Exam was benign. He recommended to get diet as tolerated. Initially, the patient NPO on the IV fluids. GI closely followed. CT of the abdomen and pelvis, which was done in the emergency department revealed: 1. Colonic diverticulosis. Persistent slight infiltration of the pericolonic fat at the junction of the distal descending and proximal sigmoid colon. This could represent persistent acute diverticulitis versus chronic changes. 2. Multiple hepatic masses, suspicious for metastasis. 3. Possible renal mass. The patient had elevated tumor markers CEA of 34 and CA 19-9 of 128. Hematology/Oncology followed. The patient already seen by oncologist as outpatient. According to inpatient oncologist, needs to follow up with outpatient oncologist after discharge. The patient was on antibiotic. Infectious Disease followed. Antibiotics changed to oral prior to discharge. Diet started as tolerated. Antiemetic provided as tolerated. Pain management was addressed. Bowel regimen instituted. Blood pressure was managed with current regimen and was stable. GI prophylaxis provided. Electrolytes were replaced as needed. Abdominal ultrasound revealed no gallstones, no dilated ducts, did reveal renal mass and liver mass as well. Recommended to consider palliative care. Stool culture were negative. The patient was stable to discharge to fdc facility. DISCHARGE DIAGNOSES: 1. Intractable nausea and vomiting. 2. Metastatic adenocarcinoma of colon, possible acute diverticulitis. 3. Liver mass. 4. Renal mass. 5. Elevated tumor markers. 6. Hypertension. 7. Mild anemia of chronic disease. 8. Schizophrenia. 9. Depression. DISCHARGE MEDICATIONS: See medication reconciliation list. DISCHARGE INSTRUCTIONS: The patient discharged to fdc facility. Follow up with medical doctor at the facility and oncologist as outpatient. Michael Moreira D.O. I have been assigned to dictate discharge summary on this account and I was not involved in the patient's management. Mayelin vermashay N.PGlynn DR: JAYDA JOB#: [id number] CC:
== END 2017-06-18 17:30 | DRG 844 ==
LOC: EDBD 19:11 → EMR 20:19 → 4E 20:40 → EDBEDREQ 22:38 → 4E 06-16 03:54
DX: C79.9 Secondary malignant neoplasm of unspecified site (principal); K57.92 Diverticulitis of intestine, part unspecified, without perforation or abscess without bleeding; K51.90 Ulcerative colitis, unspecified, without complications; C18.9 Malignant neoplasm of colon, unspecified; D63.8 Anemia in other chronic diseases classified elsewhere; I10 Essential (primary) hypertension; F20.0 Paranoid schizophrenia; Z88.0 Allergy status to penicillin; F32.9 Major depressive disorder, single episode, unspecified; Z86.73 Personal history of transient ischemic attack (TIA), and cerebral infarction without residual deficits; N28.89 Other specified disorders of kidney and ureter; R16.0 Hepatomegaly, not elsewhere classified
CPT/HCPCS: 36415; 74177; 76700; 80048; 80053; 81003; 82150; 82378; 83690; 83735; 84100; 85025; 85730; 86301; 87045; 87081; J2765

== ENCOUNTER 2018-01-04 14:11 | Inpatient (IN) | payer MEDICARE, MEDICAID ==
[~2018-01-04] VITALS: Ht 157.5 cm; Wt 63.5 kg
[~2018-01-04 14:11] MED LIST changes: +BENADRYL25 MG/10 M PO; +DIPHENHYDRAMINE25 M3 ORAL; +DOCUSATE S50 MG/5 ML PO; +FLAGYL ER750 MG ORAL; +FLAGYL375 MG ORAL; +HEPARIN SO5000 UNIT2 SUBQ; +LEVOFLOXACIN250 MG ORAL; +LORAZEPAM2 MG ORAL; +METOCLOPRAMIDE H5 M1 ORAL; +METRONIDAZ500 MG/100 PO; +METRONIDAZOLE500 MG ORAL; +MORPHINE SU2 MG/1 M1 PO; +MORPHINE SU4 MG/1 M1 IV; +MYLANTA30 M1 PO; +NITROGLYCERIN0.4 MG SL; +PHENERGAN SUPP25 MG ORAL; +POLYETHYLENE GL17 GM ORAL; +TEMAZEPAM15 MG ORAL; +ZOFRAN4 M1 ORAL
[2018-01-04 16:30] VITALS: BP 128/82
--- NOTE | 2018-01-04 16:49 | Diagnostic Imaging Report ---
Indication: Chest pain Technique: One view of the chest Comparison: none Findings: There is a right arm PICC. The heart is enlarged. There is atelectasis in the right lung base. Lungs and pleural spaces are otherwise clear Impression: Cardiomegaly Right basilar atelectasis
[2018-01-04 17:10] LABS: BASOPHILS % (AUTO) 0.8 % (0.0-2.0); EOSINOPHILS % (AUTO) 3.3 % (0.0-3.0); HEMATOCRIT 35.2 % (37.0-47.0); HEMOGLOBIN 11.5 G/DL (12.0-16.0); LYMPHOCYTES % (AUTO) 14.1 % (20.0-45.0); MEAN CORPUSCULAR VOLUME 85 FL (80-99); MONOCYTES % (AUTO) 4.8 % (1.0-10.0); NEUTROPHILS % (AUTO) 76.9 % (45.0-75.0); PLATELET COUNT 280 K/UL (150-450); RED BLOOD COUNT 4.13 M/UL (4.20-5.40); RED CELL DISTRIBUTION WIDTH 14.9 % (11.6-14.8); WHITE BLOOD COUNT 11.4 K/UL (4.8-10.8)
[2018-01-04 17:20] VITALS: BP 131/78
[2018-01-04 17:24] LABS: ANION GAP 9 mmol/L (5-15); BLOOD UREA NITROGEN 12 mg/dL (7-18); CALCIUM 9.3 MG/DL (8.5-10.1); CARBON DIOXIDE 28 MMOL/L (21-32); CHLORIDE 101 MMOL/L (98-107); CREATININE 0.8 MG/DL (0.55-1.30); POTASSIUM 3.2 MMOL/L (3.5-5.1); SODIUM 138 MMOL/L (136-145)
[2018-01-04 17:38] LABS: ALANINE AMINOTRANSFERASE 13 U/L (12-78); ALBUMIN 2.5 G/DL (3.4-5.0); ALBUMIN/GLOBULIN RATIO 0.6 (1.0-2.7); ALKALINE PHOSPHATASE 105 U/L (46-116); ASPARTATE AMINO TRANSFERASE 13 U/L (15-37); BILIRUBIN,TOTAL 0.2 MG/DL (0.2-1.0); CKMB < 0.5 NG/ML (0.0-3.6); CREATINE KINASE 18 U/L (26-308)
[2018-01-04] MEDS ORDERED: LOVENOX10 M4 SUBQ (18:10)
[2018-01-04] MEDS ORDERED: ABILIFY2 MG ORAL (18:10)
[2018-01-04] MEDS ORDERED: INSULIN REGULAR (18:10)
[2018-01-04] MEDS ORDERED: NORVASC10 MG ORAL (18:10)
[2018-01-04] MEDS ORDERED: Miralax 17gm pkt ORAL PRN (19:15)
[2018-01-04] MEDS ORDERED: Albuterol/Ipratropium 3ml neb HHN PRN (19:15)
[2018-01-04] MEDS ORDERED: Morphine Sulfate 2mg/ml Inj IVP PRN (19:15)
--- NOTE | 2018-01-04 19:16 | Consultation ---
History of Present Illness General Date patient seen: Jan 04, 2018 Chief Complaint: Abnormal Labs Referring physician: Dr. Moreira Reason for Consultation: Abnormal chest xray Present Illness HPI Patient is 72 yo female with pmhx DM II and encephalopathy who presents to [facility] emergency room with chief complaint of fever and abnormal labs, a subsequent chest radiograph in the emergency reveals a questionable process in the right lung bases I was asked to consult from a internal medicine and pulmonary point of view. The patient is being initiated on IV antibiotics and further lung exams will be conducted with special attention to improvement in lung sound of the right lower lung base. Allergies: Coded Allergies: PENICILLINS (Verified Adverse Reaction, Severe, "passed out", 05/07/17) Medication History Scheduled Al Hydroxide/mg Hydroxide (Mag-Al Liquid), 30 ML PO EVERY 6 HOURS, (Reported) Amlodipine Besylate (Norvasc), 10 MG ORAL DAILY, (Reported) Aripiprazole* (Abilify*), Unknown Dose ORAL DAILY, (Reported) Asenapine Maleate (Saphris), 5 MG SL BID, (Reported) Bisacodyl (Dulcolax), 10 MG RC PRN, (Reported) Carvedilol (Coreg), 6.25 MG ORAL EVERY 12 HOURS, (Reported) Diphenhydramine HCl (Diphenhydramine HCl), 25 MG PO EVERY 6 HOURS, (Reported) Docusate Sodium (Docusate Sodium), 50 MG PO TWICE A DAY, (Reported) Docusate Sodium* (Colace*), 100 MG ORAL DAILY, (Reported) Enoxaparin* (Lovenox*), 40 MG SUBQ HS, (Reported) Ferrous Sulfate (Iron), 325 MG PO DAILY, (Reported) Heparin Sod (Porcine) (Heparin Sodium*), 5,000 UNITS SUBQ EVERY 12 HOURS, ( Reported) Hydralazine Hcl* (Hydralazine Hcl*), 25 MG ORAL EVERY 8 HOURS, (Reported) Levofloxacin (Levofloxacin*), 250 MG ORAL DAILY, (Reported) Lisinopril* (Zestril*), 10 MG ORAL DAILY, (Reported) Lorazepam* (Lorazepam*), 2 MG ORAL EVERY 4 HOURS, (Reported) Magnesium Hydroxide* (Milk Of Magnesia*), 30 ML ORAL DAILY, (Reported) Memantine Hcl* (Namenda*), 10 MG ORAL BID, (Reported) Metoclopramide Hcl* (Metoclopramide Hcl*), 5 MG ORAL EVERY 6 HOURS, (Reported) Metronidazole (Flagyl Er), 750 MG ORAL EVERY 8 HOURS, (Reported) Metronidazole* (Flagyl*), 500 MG ORAL EVERY 8 HOURS, (Reported) Metronidazole/Sodium Chloride* (Metronidazole 500 Mg/100 Ml*), 500 MG PO EVERY 8 HOURS, (Reported) Mirtazapine* (Remeron*), 7.5 MG ORAL BEDTIME, (Reported) Morphine Sulfate (Morphine Sulfate), 4 MG IV Q4HR, (Reported) Na Phos,M-B/Na Phos,Di-Ba* (Fleet Enema*), 133 ML RECTAL DAILY, (Reported) Nitrofurantoin Monohyd/M-Cryst* (Macrobid 100 Mg*), 100 MG ORAL EVERY 12 HOURS, (Reported) Nitrofurantoin Monohyd/M-Cryst* (Macrobid 100 Mg*), 100 MG ORAL EVERY 12 HOURS, (Reported) Pantoprazole* (Protonix*), 40 MG ORAL DAILY, (Reported) Pantoprazole* (Protonix*), 40 MG ORAL DAILY, (Reported) Sennosides (Senna Lax), 17.2 MG PO HS, (Reported) Scheduled PRN Acetaminophen* (Acetaminophen 325MG Tablet*), 650 MG ORAL Q4H PRN for Pain Scale (3-5), (Reported) Acetaminophen* (Acetaminophen 325MG Tablet*), 650 MG ORAL Q4H PRN for Fever/ Headache/Mild Pain, (Reported) Clonidine Hcl* (Catapres*), 0.1 MG ORAL Q12HR PRN for For High Blood Pressure, ( Reported) Diphenhydramine Hcl (Diphenhydramine Hcl), 25 MG ORAL Q6H PRN for Itching, ( Reported) Ondansetron (Zofran), 4 MG ORAL Q6H PRN for Nausea & Vomiting, (Reported) Promethazine HCl (Promethegan), 25 MG ORAL Q8HR PRN for Nausea & Vomiting, ( Reported) Miscellaneous Medications Metronidazole (Flagyl), 500 MG ORAL, (Reported) Morphine Sulfate (Morphine Sulfate), 2 MG PO, (Reported) Nitroglycerin (Nitroglycerin), 0.4 MG SL, (Reported) Polyethylene Glycol 3350* (Polyethylene Glycol 3350*), 17 GM ORAL, (Reported) Temazepam (Temazepam*), 15 MG ORAL, (Reported) [Regularinsulin SS], (Reported) Patient History Healthcare decision maker Resuscitation status Advanced Directive on File Yes Past Medical/Surgical History Past Medical/Surgical History: (1) Liver lesion (2) Ulcerative colitis (3) Dysphagia (4) Esophageal stricture (5) Acute diverticulitis (6) Breast tumor (7) Depressed (8) Intractable nausea and vomiting (9) Colonoscopy planned (10) Colon cancer (11) HTN (hypertension) (12) Metastatic adenocarcinoma (13) Sepsis (14) Anemia (15) Confusion (16) Diabetes (17) Schizophrenia (18) Weak Review of Systems Constitutional: Reports: fever, malaise, weakness Respiratory: Reports: see HPI Hematologic/Lymphatic: Reports: anemia Physical Exam General Appearance: moderate distress Lines, tubes and drains: peripheral HEENT: normocephalic, atraumatic, anicteric, PERRL Neck: non-tender, normal alignment, supple, normal inspection Respiratory/Chest: chest wall non-tender, respiratory distress, accessory muscle use, crackles/rales, rhonchi - right Breasts: no masses Cardiovascular/Chest: normal peripheral pulses, normal rate, regular rhythm, no JVD Abdomen: normal bowel sounds, non tender, soft, no organomegaly, no mass Genitourinary/Rectal: normal genital exam, normal rectal exam Extremities: normal range of motion, non-tender, normal inspection, no calf tenderness Skin Exam: normal pigmentation, warm/dry Neurologic: power distribution engineer II-XII grossly normal, disoriented Musculoskeletal: atrophy Last 24 Hour Vital Signs Date Time Temp Pulse Resp B/P (MAP) Pulse Ox O2 Delivery O2 Flow Rate FiO2 01/04/18 14:50 97.5 108 20 132/82 95 Room Air Laboratory Tests Test 01/04/18 16:15 White Blood Count 11.4 K/UL (4.8-10.8) H Red Blood Count 4.13 M/UL (4.20-5.40) L Hemoglobin 11.5 G/DL (12.0-16.0) L Hematocrit 35.2 % (37.0-47.0) L Mean Corpuscular Volume 85 FL (80-99) Mean Corpuscular Hemoglobin 27.9 PG (27.0-31.0) Mean Corpuscular Hemoglobin Concent 32.7 G/DL (32.0-36.0) Red Cell Distribution Width 14.9 % (11.6-14.8) H Platelet Count 280 K/UL (150-450) Mean Platelet Volume 5.1 FL (6.5-10.1) L Neutrophils (%) (Auto) 76.9 % (45.0-75.0) H Lymphocytes (%) (Auto) 14.1 % (20.0-45.0) L Monocytes (%) (Auto) 4.8 % (1.0-10.0) Eosinophils (%) (Auto) 3.3 % (0.0-3.0) H Basophils (%) (Auto) 0.8 % (0.0-2.0) Sodium Level 138 MMOL/L (136-145) Potassium Level 3.2 MMOL/L (3.5-5.1) L Chloride Level 101 MMOL/L (98-107) Carbon Dioxide Level 28 MMOL/L (21-32) Anion Gap 9 mmol/L (5-15) Blood Urea Nitrogen 12 mg/dL (7-18) Creatinine 0.8 MG/DL (0.55-1.30) Estimat Glomerular Filtration Rate mL/min (>60) Glucose Level 179 MG/DL (74-106) H Lactic Acid Level 2.10 mmol/L (0.66-2.22) Calcium Level 9.3 MG/DL (8.5-10.1) Total Bilirubin 0.2 MG/DL (0.2-1.0) Aspartate Amino Transf (AST/SGOT) 13 U/L (15-37) L Alanine Aminotransferase (ALT/SGPT) 13 U/L (12-78) Alkaline Phosphatase 105 U/L (46-116) Total Creatine Kinase 18 U/L (26-308) L Creatine Kinase MB < 0.5 NG/ML (0.0-3.6) Creatine Kinase MB Relative Index 2.7 Troponin I 0.000 ng/mL (0.000-0.056) Total Protein 6.6 G/DL (6.4-8.2) Albumin 2.5 G/DL (3.4-5.0) L Globulin 4.1 g/dL Albumin/Globulin Ratio 0.6 (1.0-2.7) L Height (Feet): 5 Height (Inches): 2.00 Weight (Pounds): 140 Medications Current Medications Medications (Trade) Dose Ordered Sig/Leonardo Route PRN Reason Start Time Stop Time Status Last Admin Dose Admin Amlodipine Besylate (Norvasc) 10 mg DAILY ORAL 01/05/18 09:00 02/04/18 08:59 UNV Hydralazine HCl (Apresoline) 25 mg EVERY 8 HOURS ORAL 01/04/18 22:00 02/03/18 21:59 UNV Lisinopril (Prinivil) 10 mg DAILY ORAL 01/05/18 09:00 02/04/18 08:59 UNV Assessment/Plan Problem List: (1) Sepsis ICD Codes: A41.9 - Sepsis, unspecified organism SNOMED: 45536747 Qualifiers: Qualified Codes: A41.9 - Sepsis, unspecified organism (2) Colon cancer ICD Codes: C18.9 - Malignant neoplasm of colon, unspecified SNOMED: 881186785 Qualifiers: Qualified Codes: C18.9 - Malignant neoplasm of colon, unspecified (3) HTN (hypertension) ICD Codes: I10 - Essential (primary) hypertension SNOMED: 02016979 Qualifiers: Qualified Codes: I10 - Essential (primary) hypertension (4) Metastatic adenocarcinoma ICD Codes: C79.9 - Secondary malignant neoplasm of unspecified site SNOMED: 4513331, 959921021 Status: stable, progressing Assessment/Plan Initiated broad spectrum IV antibiotics Follow up with checked cultures Check electrolytes Titrate fio2 to sat of 92% Monitor bp DVT prophylaxis. MEHRAN BARAJAS Jan 04, 2018 19:16
[2018-01-04 20:00] VITALS: BP 122/76
[2018-01-04] MEDS: Aztreonam Inj 1 GM in NS 50 ML IVPB SCH (21:42)
[2018-01-04] MEDS: Heparin 5000 units/ml inj SUBQ SCH (21:43)
[2018-01-04] MEDS: NovoLOG Insulin Flexpen SUBQ SCH (21:44)
[2018-01-04] MEDS: HydrALAZINE 25mg tab ORAL SCH (22:35)
[2018-01-04] MEDS: Vancomycin 1gm/D5W 275ml IVPB SCH ×2 (22:36)
[2018-01-05] VITALS: BP 118/66
[2018-01-05] MEDS ORDERED: Vancomycin 1 GM in D5W 275 ML IV SCH (00:30)
[2018-01-05 04:00] VITALS: BP 138/77
[2018-01-05] MEDS ORDERED: LORazepam 1mg tab ORAL PRN (05:00)
[2018-01-05] MEDS: Aztreonam Inj 1 GM in NS 50 ML IVPB SCH ×3 (05:13→21:19)
[2018-01-05] MEDS: HydrALAZINE 25mg tab ORAL SCH ×2 (06:01→14:20)
[2018-01-05] MEDS: NovoLOG Insulin Flexpen SUBQ SCH ×4 (06:02→21:18)
[2018-01-05 07:09] LABS: APPEARANCE,URINE SLIGHTLY CLOUDY; BILIRUBIN, URINE NEGATIVE (NEGATIVE); COLOR,URINE PALE YELLOW; GLUCOSE, URINE (UA) NEGATIVE (NEGATIVE); KETONES,URINE NEGATIVE (NEGATIVE); LEUKOCYTE ESTERASE ,URINE 3+ (NEGATIVE); NITRITE,URINE NEGATIVE (NEGATIVE); PH,URINE 5 (4.5-8.0); PROTEIN,URINE 1+ (NEGATIVE); UROBILINOGEN,URINE NORMAL MG/DL (0.0-1.0)
[2018-01-05 08:22] VITALS: BP 138/81
[2018-01-05] MEDS: Lisinopril 10mg tab ORAL SCH (08:37)
[2018-01-05] MEDS: Heparin 5000 units/ml inj SUBQ SCH ×2 (08:38→21:17)
--- NOTE | 2018-01-05 10:30 | Consultation ---
DATE OF CONSULTATION: 01/05/2018 CONSULTING PHYSICIAN: Jasvir Montano M.D. HISTORY OF PRESENT ILLNESS: The patient is a 72-year-old female patient. She was admitted to the hospital at [facility]. The reason for this patient's admission is because this patient came in secondary to sepsis. She was recently at [facility] for small bowel obstruction. Now she has a septic infection and respiratory insufficiency. So, attending physician has requested daily psychiatric consultation because as a result of her medical illness, she has increasing mood lability and her cognition has declined below baseline. PSYCHOTROPIC MEDICATIONS: On admission, at [facility], she was taken Abilify as well as Risperdal, but Risperdal is at low dose because she has a diagnosis of paranoid schizophrenia. She does have multiple psychiatric admissions. ALLERGIES: To penicillin. MEDICAL HISTORY: She has a history of ulcerative colitis, dysphagia, esophageal stricture, diverticulitis, sepsis, and hypertension. SOCIAL HISTORY: This patient is financially supported by [employer] and Medicare. Currently living in [facility]. SUBSTANCE ABUSE HISTORY: No known history of any drug or alcohol use. FAMILY PSYCHIATRIC HISTORY: Denies. Strength is moderately better and has place to live impulsive and has no support system. MENTAL STATUS EXAMINATION: Appearance is disheveled. Attitude is irritable and agitated. Affect is guarded and restricted. Intellect is poor. Mood is depressed and anxious. Motor activity, psychomotor retardation. Attention span is poor. Orientation x2. Speech is pressured. Thought process disorganized and illogical. Thought content is she has auditory hallucinations and paranoid delusions, but denies suicidal or homicidal thoughts. Insight and judgment is poor. PLAN: The plan for this patient is to treat this patient with a psychotropic medication regimen of Risperdal 2 mg twice a day. I am also going to add Ativan 0.5 mg q. 6h. p.r.n. anxiety and agitation. Provide her with a 15 to 20 minutes of supportive therapy and encouraged her to interact appropriately with staff and other patients. I would like to thank, Dr. Michael Moreira for this interesting consultation. I will be happy to follow this patient with you throughout her hospital course. Chart reviewed and discussed with the staff. The patient was seen and assessed at the bedside. Jasvir Montano M.D. DR: JULIANN JOB#: [id number] CC:
[2018-01-05 11:59] LABS: BASOPHILS % (AUTO) 0.9 % (0.0-2.0); EOSINOPHILS % (AUTO) 4.3 % (0.0-3.0); HEMATOCRIT 35.3 % (37.0-47.0); HEMOGLOBIN 11.5 G/DL (12.0-16.0); LYMPHOCYTES % (AUTO) 18.4 % (20.0-45.0); MEAN CORPUSCULAR VOLUME 85 FL (80-99); MONOCYTES % (AUTO) 5.7 % (1.0-10.0); NEUTROPHILS % (AUTO) 70.7 % (45.0-75.0); PLATELET COUNT 301 K/UL (150-450); RED BLOOD COUNT 4.18 M/UL (4.20-5.40); RED CELL DISTRIBUTION WIDTH 14.7 % (11.6-14.8); WHITE BLOOD COUNT 8.7 K/UL (4.8-10.8)
[2018-01-05 12:15] VITALS: BP 129/68
[2018-01-05 12:26] LABS: ALANINE AMINOTRANSFERASE 13 U/L (12-78); ALBUMIN 2.5 G/DL (3.4-5.0); ALBUMIN/GLOBULIN RATIO 0.6 (1.0-2.7); ALKALINE PHOSPHATASE 98 U/L (46-116); ANION GAP 10 mmol/L (5-15); ASPARTATE AMINO TRANSFERASE 14 U/L (15-37); BILIRUBIN,TOTAL 0.2 MG/DL (0.2-1.0); BLOOD UREA NITROGEN 13 mg/dL (7-18); CALCIUM 9.5 MG/DL (8.5-10.1); CARBON DIOXIDE 28 MMOL/L (21-32); CHLORIDE 100 MMOL/L (98-107); CREATININE 0.7 MG/DL (0.55-1.30); POTASSIUM 3.5 MMOL/L (3.5-5.1); SODIUM 137 MMOL/L (136-145)
--- NOTE | 2018-01-05 15:36 | Pulmonology Progress Note ---
Assessment/Plan Problems: (1) Sepsis (2) Colon cancer (3) HTN (hypertension) (4) Metastatic adenocarcinoma Assessment/Plan continue abx check cultures azactima and vancomycin check electrolytes titrate fio2 to sat of 92% monitor bp dvt prophylaxis. Subjective ROS Limited/Unobtainable: No Allergies: Coded Allergies: PENICILLINS (Verified Adverse Reaction, Severe, "passed out", 05/07/17) Objective Last 24 Hour Vital Signs Date Time Temp Pulse Resp B/P (MAP) Pulse Ox O2 Delivery O2 Flow Rate FiO2 01/05/18 14:20 119/67 01/05/18 12:15 97.2 93 18 129/68 95 Room Air 01/05/18 08:37 138/81 01/05/18 08:37 89 138/81 01/05/18 08:22 97.8 89 19 138/81 97 Room Air 01/05/18 08:11 82 16 Room Air 01/05/18 06:01 127/80 01/05/18 04:00 98.2 77 19 138/77 97 01/05/18 00:00 97.5 81 19 118/66 97 01/04/18 22:35 111/71 01/04/18 20:00 97.2 87 19 122/76 95 01/04/18 18:20 97.9 80 18 131/78 97 Room Air 01/04/18 17:20 97.9 80 18 131/78 97 Room Air 01/04/18 16:30 98.1 82 20 128/82 96 Room Air Intake and Output 01/04/18 01/05/18 19:00 07:00 Intake Total 0 ml 240 ml Balance 0 ml 240 ml Intake Oral 0 ml 240 ml # Voids 3 Objective Head: normocephalic, atraumatic Eyes: bilateral eye PERRL, bilateral eye EOMI ENT: hearing grossly normal, normal pharynx, TMs + canals normal, uvula midline Neck: full range of motion, supple, no meningismus, no bony tend Respiratory: no retraction, no accessory muscle use, wheezing - Cardiovascular #1: normal peripheral pulses, regular rate, rhythm, no edema, no gallop, no JVD, no murmur Gastrointestinal: normal bowel sounds, non tender, soft, no mass, no organomegaly, non-distended, no guarding, no hernia, no pulsatile mass, no rebound Genitourinary: no CVA tenderness Musculoskeletal: normal inspection Neurologic: oriented x3, responsive, 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, motor strength/ tone normal, sensory intact Psychiatric: mood/affect normal Laboratory Tests 01/04/18 16:15: White Blood Count 11.4H, Red Blood Count 4.13L, Hemoglobin 11.5L, Hematocrit 35.2L, Mean Corpuscular Volume 85, Mean Corpuscular Hemoglobin 27.9, Mean Corpuscular Hemoglobin Concent 32.7, Red Cell Distribution Width 14.9H, Platelet Count 280, Mean Platelet Volume 5.1L, Neutrophils (%) (Auto) 76.9H, Lymphocytes (%) (Auto) 14.1L, Monocytes (%) (Auto) 4.8, Eosinophils (%) (Auto) 3.3H, Basophils (%) (Auto) 0.8, Sodium Level 138, Potassium Level 3.2L, Chloride Level 101, Carbon Dioxide Level 28, Anion Gap 9, Blood Urea Nitrogen 12 , Creatinine 0.8, Estimat Glomerular Filtration Rate , Glucose Level 179H, Lactic Acid Level 2.10, Calcium Level 9.3, Total Bilirubin 0.2, Aspartate Amino Transf (AST/SGOT) 13L, Alanine Aminotransferase (ALT/SGPT) 13, Alkaline Phosphatase 105, Total Creatine Kinase 18L, Creatine Kinase MB < 0.5, Creatine Kinase MB Relative Index 2.7, Troponin I 0.000, Total Protein 6.6, Albumin 2.5L , Globulin 4.1, Albumin/Globulin Ratio 0.6L 01/05/18 06:50: Urine Color Pale yellow, Urine Appearance Slightly cloudy, Urine pH 5, Urine Specific [place] 1.015, Urine Protein 1+H, Urine Glucose (UA) Negative, Urine Ketones Negative, Urine Occult Blood 1+H, Urine Nitrite Negative, Urine Bilirubin Negative, Urine Urobilinogen Normal, Urine Leukocyte Esterase 3+H, Urine RBC 2-4H, Urine WBC TntcH, Urine Squamous Epithelial Cells Few, Urine Bacteria Few 01/05/18 11:44: White Blood Count 8.7, Red Blood Count 4.18L, Hemoglobin 11.5L, Hematocrit 35.3L , Mean Corpuscular Volume 85, Mean Corpuscular Hemoglobin 27.5, Mean Corpuscular Hemoglobin Concent 32.5, Red Cell Distribution Width 14.7, Platelet Count 301, Mean Platelet Volume 5.2L, Neutrophils (%) (Auto) 70.7, Lymphocytes ( %) (Auto) 18.4L, Monocytes (%) (Auto) 5.7, Eosinophils (%) (Auto) 4.3H, Basophils (%) (Auto) 0.9, Sodium Level 137, Potassium Level 3.5, Chloride Level 100, Carbon Dioxide Level 28, Anion Gap 10, Blood Urea Nitrogen 13, Creatinine 0.7, Estimat Glomerular Filtration Rate , Glucose Level 167H, Calcium Level 9.5 , Total Bilirubin 0.2, Aspartate Amino Transf (AST/SGOT) 14L, Alanine Aminotransferase (ALT/SGPT) 13, Alkaline Phosphatase 98, Total Protein 6.7, Albumin 2.5L, Globulin 4.2, Albumin/Globulin Ratio 0.6L Current Medications Medications (Trade) Dose Ordered Sig/Leonardo Route PRN Reason Start Time Stop Time Status Last Admin Dose Admin Acetaminophen (Tylenol) 650 mg Q4H PRN ORAL fever (temp>100.5F) 01/04/18 19:15 02/03/18 19:14 Albuterol/ Ipratropium (Albuterol/ Ipratropium) 3 ml Q4H PRN HHN Shortness of Breath 01/04/18 19:15 01/09/18 19:14 Amlodipine Besylate (Norvasc) 10 mg DAILY ORAL 01/05/18 09:00 02/04/18 08:59 01/05/18 08:37 Aztreonam 1 gm/ Sodium Chloride 50 ml @ 100 mls/hr EVERY 8 HOURS IVPB 01/04/18 21:00 01/11/18 20:59 01/05/18 14:19 Chlorhexidine Gluconate (Minnie-Hex 2%) 1 applic DAILY@2000 TOPIC 01/05/18 20:00 02/04/18 19:59 Dextrose (Dextrose 50%) STAT PRN IV Hypoglycemia 01/04/18 20:00 02/03/18 19:59 Heparin Sodium (Porcine) (Heparin 5000 units/ml) 5,000 units EVERY 12 HOURS SUBQ 01/04/18 21:00 02/03/18 20:59 01/05/18 08:38 Hydralazine HCl (Apresoline) 25 mg EVERY 8 HOURS ORAL 01/04/18 22:00 02/03/18 21:59 01/05/18 14:20 Insulin Aspart (NovoLOG) BEFORE MEALS AND HS SUBQ 01/04/18 21:00 02/03/18 20:59 01/05/18 11:57 Lisinopril (Zestril) 10 mg DAILY ORAL 01/05/18 09:00 02/04/18 08:59 01/05/18 08:37 Lorazepam (Ativan) 1 mg Q6H PRN ORAL For Anxiety 01/05/18 05:00 01/12/18 04:59 Morphine Sulfate (Morphine Sulfate) 2 mg Q4H PRN IVP Moderate Pain (Pain Scale 4-6) 01/04/18 19:15 01/11/18 19:14 Ondansetron HCl (Zofran) 4 mg Q6H PRN IVP Nausea & Vomiting 01/04/18 19:15 02/03/18 19:14 Phenazopyridine HCl (Pyridium) 100 mg DAILYPRN PRN ORAL dysuria 01/04/18 19:15 02/03/18 19:14 Polyethylene Glycol (Miralax) 17 gm DAILYPRN PRN ORAL Constipation 01/04/18 19:15 02/03/18 19:14 Risperidone (RisperDAL) 2 mg BID ORAL 01/05/18 09:00 02/04/18 08:59 01/05/18 08:37 Temazepam (Restoril) 15 mg HSPRN PRN ORAL Insomnia 01/04/18 19:15 01/11/18 19:14 Vancomycin HCl (Vanco rx to dose) 1 ea DAILY PRN MISC PER RX PROTOCOL 01/04/18 19:30 02/03/18 19:29 Vancomycin HCl 1 gm/Dextrose 275 ml @ 183.708 mls/hr Q24H IVPB 01/04/18 22:00 01/09/18 21:59 01/04/18 22:36 MEHRAN BARAJAS Jan 05, 2018 15:36
[2018-01-05 16:00] VITALS: BP 127/73
--- NOTE | 2018-01-05 17:15 | Cardiology Report ---
APPROVED REPORT EKG Measurement Heart [id number] Sinus tachycardia Possible Anterior infarct, age undetermined Abnormal ECG
--- NOTE | 2018-01-05 17:15 | Consultation ---
DATE OF CONSULTATION: 01/05/2018 INFECTIOUS DISEASE CONSULTATION CONSULTING PHYSICIAN: Wiley Lennon M.D. PRIMARY ATTENDING PHYSICIAN: Michael Moreira D.O. REASON FOR CONSULT: Leukocytosis. HISTORY OF PRESENT ILLNESS: This is a 72-year-old white female admitted last evening from a care home facility because of abnormal laboratories, had WBC count of 14,000. The patient has no complaint. No fever. PAST MEDICAL HISTORY: Significant for colon cancer. The patient is status post colostomy and hemicolectomy. Cancer is metastatic to the liver. She has history of anemia, diverticulitis, and ulcerative colitis. MEDICATIONS: Getting amlodipine, lisinopril, risperidone, Ativan, hydralazine, vancomycin, aztreonam, insulin, albuterol, ipratropium inhaler, morphine sulfate, MiraLAX, Zofran, Restoril, and . ALLERGIES: The patient is allergic to penicillin, passed out with penicillin. SOCIAL HISTORY: . Has no kids. No history of alcohol, drug abuse, or smoking. REVIEW OF SYSTEMS: Denies fever or chills. No nausea. No vomiting. No coughing. Has urinary incontinence. PHYSICAL EXAMINATION: GENERAL APPEARANCE: Seems to be well-developed. In no acute distress. VITAL SIGNS: Temperature 97.8, pulse 89, and blood pressure 138/81. HEAD AND NECK: Slightly whitish tongue. HEART: S1 and S2 regular. The patient has a right arm PICC line. LUNGS: Clear. ABDOMEN: Soft. The patient is status post colostomy. Had a scar of surgery in the midline that in part are not well healed. EXTREMITY: Has no edema. LABORATORY AND DIAGNOSTIC DATA: WBC 11.4, hemoglobin 11.5, hematocrit 35.2, and platelets is 280,000. Sodium 138, potassium 3.2, chloride 101, bicarb 28, BUN 12, and creatinine 0.8. Glucose is 179. Albumin is 2.5. Chest x-ray showed right basilar atelectasis and PICC line. UA showed WBC too numerous to count and leukocyte esterase positive. IMPRESSION: Mild leukocytosis. The patient may have urinary tract infection. The patient has urinary incontinence, diabetes mellitus, metastatic cancer to the liver, and history of colonic cancer. RECOMMENDATIONS: We will continue with vancomycin and Azactam. We will follow up the culture and narrow antibiotic. At the end of my exam, I thank Dr. Michael Moreira for involving me in the care of this patient. Wiley Lennon M.D. DR: ANABELLE JOB#: [id number] CC:
--- NOTE | 2018-01-05 19:40 | Cardiology Progress Note ---
Assessment/Plan Assessment/Plan The patient is seen and examined, full consult note is dictated. Objective Last 24 Hour Vital Signs Date Time Temp Pulse Resp B/P (MAP) Pulse Ox O2 Delivery O2 Flow Rate FiO2 01/05/18 16:00 97.3 103 20 127/73 94 01/05/18 14:20 119/67 01/05/18 12:15 97.2 93 18 129/68 95 Room Air 01/05/18 08:37 138/81 01/05/18 08:37 89 138/81 01/05/18 08:22 97.8 89 19 138/81 97 Room Air 01/05/18 08:11 82 16 Room Air 01/05/18 06:01 127/80 01/05/18 04:00 98.2 77 19 138/77 97 01/05/18 00:00 97.5 81 19 118/66 97 01/04/18 22:35 111/71 01/04/18 20:00 97.2 87 19 122/76 95 Intake and Output 01/04/18 01/05/18 19:00 07:00 Intake Total 0 ml 240 ml Balance 0 ml 240 ml Intake Oral 0 ml 240 ml # Voids 3 Laboratory Tests Test 01/05/18 06:50 01/05/18 11:44 Urine Color Pale yellow Urine Appearance Slightly cloudy Urine pH 5 (4.5-8.0) Urine Specific [place] 1.015 (1.005-1.035) Urine Protein 1+ (NEGATIVE) H Urine Glucose (UA) Negative (NEGATIVE) Urine Ketones Negative (NEGATIVE) Urine Occult Blood 1+ (NEGATIVE) H Urine Nitrite Negative (NEGATIVE) Urine Bilirubin Negative (NEGATIVE) Urine Urobilinogen Normal MG/DL (0.0-1.0) Urine Leukocyte Esterase 3+ (NEGATIVE) H Urine RBC 2-4 /HPF (0 - 2) H Urine WBC Tntc /HPF (0 - 2) H Urine Squamous Epithelial Cells Few /LPF (NONE/OCC) Urine Bacteria Few /HPF (NONE) White Blood Count 8.7 K/UL (4.8-10.8) Red Blood Count 4.18 M/UL (4.20-5.40) L Hemoglobin 11.5 G/DL (12.0-16.0) L Hematocrit 35.3 % (37.0-47.0) L Mean Corpuscular Volume 85 FL (80-99) Mean Corpuscular Hemoglobin 27.5 PG (27.0-31.0) Mean Corpuscular Hemoglobin Concent 32.5 G/DL (32.0-36.0) Red Cell Distribution Width 14.7 % (11.6-14.8) Platelet Count 301 K/UL (150-450) Mean Platelet Volume 5.2 FL (6.5-10.1) L Neutrophils (%) (Auto) 70.7 % (45.0-75.0) Lymphocytes (%) (Auto) 18.4 % (20.0-45.0) L Monocytes (%) (Auto) 5.7 % (1.0-10.0) Eosinophils (%) (Auto) 4.3 % (0.0-3.0) H Basophils (%) (Auto) 0.9 % (0.0-2.0) Sodium Level 137 MMOL/L (136-145) Potassium Level 3.5 MMOL/L (3.5-5.1) Chloride Level 100 MMOL/L (98-107) Carbon Dioxide Level 28 MMOL/L (21-32) Anion Gap 10 mmol/L (5-15) Blood Urea Nitrogen 13 mg/dL (7-18) Creatinine 0.7 MG/DL (0.55-1.30) Estimat Glomerular Filtration Rate mL/min (>60) Glucose Level 167 MG/DL (74-106) H Calcium Level 9.5 MG/DL (8.5-10.1) Total Bilirubin 0.2 MG/DL (0.2-1.0) Aspartate Amino Transf (AST/SGOT) 14 U/L (15-37) L Alanine Aminotransferase (ALT/SGPT) 13 U/L (12-78) Alkaline Phosphatase 98 U/L (46-116) Total Protein 6.7 G/DL (6.4-8.2) Albumin 2.5 G/DL (3.4-5.0) L Globulin 4.2 g/dL Albumin/Globulin Ratio 0.6 (1.0-2.7) L EL LARIOS Jan 05, 2018 19:40
[2018-01-05 20:00] VITALS: BP 114/64
[2018-01-05] MEDS: Dyna-Hex 2% Top Sol 2oz TOPIC SCH (21:00)
[2018-01-05] MEDS: Carvedilol 6.25mg Tab ORAL SCH (21:00)
[2018-01-05] MEDS: Vancomycin 1gm/D5W 275ml IVPB SCH ×2 (21:19)
--- NOTE | 2018-01-05 22:02 | Consultation ---
DATE OF CONSULTATION: 01/05/2018 CARDIOLOGY CONSULTATION CONSULTING PHYSICIAN: Maximo Childress M.D. REFERRING PHYSICIAN: Michael Moreira D.O. REASON FOR CONSULTATION: Management of tachycardia. HISTORY OF PRESENT ILLNESS: The patient is a very unfortunate 72-year-old female, who was transferred from [facility] for elevated WBC as well as tachycardia. Cardiology consultation was made at request of Dr. Moreira for management of tachycardia. On arrival to the hospital, initial heart rate was 101, blood pressure was 131/78 mmHg. The patient was admitted to medical surgical unit for evaluation and management of possible sepsis. X-ray done showed right basilar atelectasis and cardiomegaly. Urine exam was significant for urinary tract infection. The patient was started on IV antibiotics by ID specialist. The patient denies any prior history of coronary artery disease, congestive heart failure, or cardiac arrhythmias. She currently denies any chest pain, shortness of breath. A 12-lead electrocardiogram in the emergency department besides sinus tachycardia showed no evidence of ST-segment changes although T-wave in lead V2 was inverted which may suggest ischemia. The patient also showed possible old inferior wall and anterior infarct per EKG. PAST MEDICAL HISTORY: 1. Ulcerative colitis. 2. Dysphagia. 3. Esophageal stricture. 4. Diverticulitis. 5. History of sepsis. 6. History of hypertension. MEDICATIONS: List of medications from the facility includes acetaminophen 650 mg q.4 h. p.r.n. pain, Mag-AL liquid 30 mL p.o. q 6 hours, Norvasc 10 mg p.o. daily, Abilify 2 mg daily, Saphris 5 mg sublingual twice daily, Dulcolax 10 mg rectally p.r.n. constipation, carvedilol 6.25 mg q.12 hours, Catapres 0.1 mg q.12 p.r.n. systolic blood pressure above 160, diphenhydramine hydrochloride 25 mg p.o. q.6 hours p.r.n. pruritus, Colace 50 mg p.o. twice daily, enoxaparin 40 mg subcutaneous at bedtime, ferrous sulfate 325 mg p.o. daily, heparin, sodium 5000 units subcutaneous q.12 hours, hydralazine 25 mg q. 8 hours, levofloxacin 250 mg p.o. daily, , lorazepam 2 mg q.4 h. p.r.n. magnesium hydroxide 30 mL p.o. daily, Namenda 10 mg twice daily, metoclopramide 5 mg q.6 hours p.r.n. nausea and vomiting, Flagyl 500 mg p.o. daily, mirtazapine 7.5 mg at bedtime, morphine sulfate 2 mg p.o. daily, Fleet Enema 133 mL rectal daily p.r.n. constipation, nitroglycerin 0.4 mg sublingual q. 5 min p.r.n. chest pain x3, Zofran 4 mg q.6 hours p.r.n. nausea and vomiting, Protonix 40 mg p.o. daily, MiraLAX 17 g p.o. daily p.r.n. constipation, Promethegan 25 mg q. 8 hours p.r.n. nausea and vomiting, senna 17.2 mg p.o. at bedtime, temazepam 15 mg p.o. p.r.n. insomnia. ALLERGIES: Penicillin. SOCIAL HISTORY: Resident of [facility] under care of Dr. Michael Moreira. Denies any tobacco, alcohol, or illicit drug use. FAMILY HISTORY: No premature coronary artery disease in first-degree relatives. REVIEW OF SYSTEMS: HEENT: Denies any headache, diplopia, blurred vision. CONSTITUTIONAL: Has complaints of generalized weakness, but no fever, chills, or night sweats. CARDIOVASCULAR: Denies any chest pain, shortness breath, PND, orthopnea, leg swelling, or palpitation. PULMONARY: Denies any cough, hemoptysis, or wheezing. GASTROINTESTINAL: Denies any nausea, vomiting, diarrhea, constipation, abdominal pain, or GI bleed. GENITOURINARY: Denies any hematuria, dysuria, or incontinence. NEUROLOGY: Denies any motor dysfunction, sensory deficit, or altered speech. PHYSICAL EXAMINATION: VITAL SIGNS: Blood pressure was 132/82, pulse of 108, respirations of 20, O2 saturation 95% on room air, and temperature 97.5 degrees Fahrenheit. GENERAL: The patient is a very unfortunate 72-year-old lady in no apparent respiratory distress, alert and oriented x4. HEENT: Atraumatic and normocephalic. Anicteric. Pupils are equal, round, and reactive to light and accommodation. Bitemporal wasting. NECK: JVP less than 5 centimeter. No carotid bruit. Carotid upstrokes 2+ bilaterally. CARDIOVASCULAR: Normal S1 and S2. Regular rate and rhythm. No murmurs, gallops, or rubs. PMI is at fourth intercostal space at the midclavicular line. LUNGS: Clear to auscultation bilaterally. ABDOMEN: Soft, nontender, and nondistended. No hepatosplenomegaly. Positive bowel sounds. EXTREMITIES: No evidence of edema, clubbing, or cyanosis. LABORATORY FINDINGS: WBC was 11.4, hemoglobin 11.5, hematocrit 35.2, and platelet count is 280. Sodium 138, potassium is 3.2 chloride 101, bicarbonate 28, BUN of 12, creatinine 0.8, glucose 179. Calcium is 9.3. Troponin I is 0.00. Chest x-ray shows cardiomegaly with no acute cardiopulmonary disease. ASSESSMENT AND PLAN: The patient is a very unfortunate 72-year-old female, seen in Cardiology consultation at request of Dr. Moreira. 1. Sinus tachycardia. This is most likely secondary to underlying urinary tract infection. Intravenous fluid has in fact corrected sinus tachycardia. There is also carvedilol that the patient was taking in the outpatient setting which will be resumed. I would discontinue hydralazine which can cause 2. Urinary tract infection. 3. Dementia. 4. History of ulcerative colitis. 5. History of hypertension on multiple medical therapy. We will adjust the dose of blood pressure medication during this hospitalization. I would like to thank, Dr. Moreira, for the courtesy of this consultation. Maximo Childress M.D. DR: Antonio JOB#: [id number] CC:
--- NOTE | 2018-01-05 22:32 | History and Physical Report ---
DATE OF ADMISSION: 01/05/2018 TIME: At 12 noon. ATTENDING PHYSICIAN: Michael Moreira D.O. CONSULTANTS: 1. Dr. Anderson. 2. Becky Recinos M.D. 3. Jasvir Montano M.D. CHIEF COMPLAINT: Abnormal laboratory, leukocytosis, and sepsis. BRIEF HISTORY: This is a 72-year-old female from [facility], presented with the above-mentioned diagnoses. In the nursing facility, she was slightly weak, slightly confused, and . CBC was drawn showing white count of 14. The patient was sent to [place], diagnosed with the above and sepsis, and admitted to [facility] floor for further treatment. Currently, calm, slightly confused in bed, no complaint. No chest pain. No shortness of breath. No nausea, vomiting, or diarrhea. PAST MEDICAL HISTORY: Include encephalopathy and diabetes. PAST SURGICAL HISTORY: None. MEDICATIONS: Include chlorhexidine, Norvasc, Restoril, Risperdal, Ativan, , vancomycin, heparin, aztreonam, and albuterol. ALLERGIES: Penicillin. SOCIAL HISTORY: No smoking. No alcohol. No intravenous drug abuse. FAMILY HISTORY: Noncontributory. PHYSICAL EXAMINATION: GENERAL: Calm in bed, oriented x1, in no acute distress. VITAL SIGNS: Temperature is 97, pulse 89, respirations 19, and blood pressure 130/81. CARDIOVASCULAR: No murmur. LUNGS: Poor air exchange. ABDOMEN: Bowel sounds distant. EXTREMITIES: Show no cyanosis, clubbing, or edema. NEUROLOGIC: The patient moves all extremities, but slightly weak. LABORATORY DATA: Labs at this time show initially white count of 11.4, today white count 8.7, hemoglobin and hematocrit are 11.5 and 35, and platelets is 301,000. BMP showed glucose 167, otherwise normal. Troponin 0.00. Albumin 2.5, hypoalbumin. ASSESSMENT: 1. Sepsis. 2. Leukocytosis. 3. Diabetes. 4. Weakness. 5. Confusion. 6. Encephalopathy. 7. Anemia. 8. Hypoalbumin. PLAN: 1. Continue premeds. 2. O2 and pulmonary treatment. 3. Antibiotics per Infectious Disease. 4. Blood pressure and blood sugar control. 5. Psych treatment. 6. Dietary followup. 7. CBC and BMP in the morning. Michael Moreira D.O. DR: DUSTIN JOB#: [id number] CC:
[2018-01-06] VITALS: BP 117/77
[2018-01-06 04:00] VITALS: BP 132/87
[2018-01-06] MEDS: Aztreonam Inj 1 GM in NS 50 ML IVPB SCH ×3 (06:00→22:01)
[2018-01-06] MEDS: NovoLOG Insulin Flexpen SUBQ SCH ×4 (06:03→20:16)
[2018-01-06 07:05] LABS: BASOPHILS % (AUTO) 1.2 % (0.0-2.0); MEAN CORPUSCULAR VOLUME 86 FL (80-99); MONOCYTES % (AUTO) 6.2 % (1.0-10.0); NEUTROPHILS % (AUTO) 63.6 % (45.0-75.0); PLATELET COUNT 295 K/UL (150-450); RED BLOOD COUNT 4.44 M/UL (4.20-5.40); RED CELL DISTRIBUTION WIDTH 15.3 % (11.6-14.8); WHITE BLOOD COUNT 6.5 K/UL (4.8-10.8)
[2018-01-06 08:00] VITALS: BP 142/79
[2018-01-06 08:11] LABS: ANION GAP 7 mmol/L (5-15); BLOOD UREA NITROGEN 14 mg/dL (7-18); CALCIUM 9.9 MG/DL (8.5-10.1); CARBON DIOXIDE 27 MMOL/L (21-32); CHLORIDE 104 MMOL/L (98-107); CREATININE 0.8 MG/DL (0.55-1.30); POTASSIUM 3.8 MMOL/L (3.5-5.1); SODIUM 138 MMOL/L (136-145)
--- NOTE | 2018-01-06 08:12 | Emergency Room Report ---
History of Present Illness General Chief Complaint: Abnormal Labs Source: Patient, Medical Record Present Illness HPI Patient presents from nursing facility with reports of elevated white blood cell count Patient has a PICC line in place Patient herself has underlying dementia Limit the history of present illness There was no reports of vomiting or diarrhea patient denies any chest pain Unclear regarding cough patient denies any dysuria frequency Denies any abdominal pain Allergies: Coded Allergies: PENICILLINS (Verified Adverse Reaction, Severe, "passed out", 05/07/17) Patient History Past Medical History: see triage record Pertinent Family History: none Reviewed Nursing Documentation: PMH: Agreed, PSxH: Agreed Nursing Documentation-PMH Hx Cardiac Problems: Yes - ANEMIA; nursing home anticoagulant use; CHF Hx Hypertension: Yes Hx COPD: Yes Hx Diabetes: Yes - CKD Hx Cancer: Yes - Right Breast, colon cancer Hx Gastrointestinal Problems: Yes - Diverticulosis Hx Dialysis: No - CKD History Of Psychiatric Problem: Yes - Mood Disorder; Dementia; Schizophrenia Hx Neurological Problems: Yes - DIFFICULTY WALKING, LACK OF COORDINATION, Hx Cerebrovascular Accident: Yes - 5 years ago Hx Dementia: Yes Review of Systems All Other Systems: limited - Other than the ones mentioned in the history of present illness all others are reviewed however they do stay limited due to the patient's mental status Physical Exam Vital Signs Date Time Temp Pulse Resp B/P (MAP) Pulse Ox O2 Delivery O2 Flow Rate FiO2 01/04/18 14:50 97.5 108 20 132/82 95 Room Air Sp02 EP Interpretation: reviewed, normal General Appearance: no apparent distress Head: normocephalic, atraumatic Eyes: bilateral eye PERRL, bilateral eye EOMI ENT: hearing grossly normal, TMs + canals normal, uvula midline, dry mucus membranes Neck: full range of motion, supple, no meningismus, no bony tend Respiratory: lungs clear, normal breath sounds, no rhonchi, no respiratory distress, no retraction, no accessory muscle use Cardiovascular #1: normal peripheral pulses, regular rate, rhythm, no edema, no gallop, no JVD, no murmur Gastrointestinal: normal bowel sounds, non tender, soft, no mass, no organomegaly, non-distended, no guarding, no hernia, no pulsatile mass, no rebound Genitourinary: no CVA tenderness Musculoskeletal: normal inspection Neurologic: responsive, bar pilot III-XII nml as tested, motor strength/tone normal, sensory intact Psychiatric: mood/affect normal Skin: normal color, no rash, warm/dry, palpation normal, other - PICC line in place right upper arm Lymphatic: normal inspection, no adenopathy Medical Decision Making Diagnostic Impression: Primary Impression: Sepsis ER Course Patient's with low sodium is mildly elevated No obvious clear source is found in the emergency room Patient does not appear to be in severe sepsis or septic shock however multiple differentials including line sepsis, pneumonia need to be considered patient provided with antibiotics and admitted for further care Labs Test 01/04/18 16:15 01/05/18 06:50 01/05/18 11:44 01/06/18 06:40 White Blood Count 11.4 K/UL (4.8-10.8) 8.7 K/UL (4.8-10.8) 6.5 K/UL (4.8-10.8) Red Blood Count 4.13 M/UL (4.20-5.40) 4.18 M/UL (4.20-5.40) 4.44 M/UL (4.20-5.40) Hemoglobin 11.5 G/DL (12.0-16.0) 11.5 G/DL (12.0-16.0) 13.0 G/DL (12.0-16.0) Hematocrit 35.2 % (37.0-47.0) 35.3 % (37.0-47.0) 38.0 % (37.0-47.0) Mean Corpuscular Volume 85 FL (80-99) 85 FL (80-99) 86 FL (80-99) Mean Corpuscular Hemoglobin 27.9 PG (27.0-31.0) 27.5 PG (27.0-31.0) 29.2 PG (27.0-31.0) Mean Corpuscular Hemoglobin Concent 32.7 G/DL (32.0-36.0) 32.5 G/DL (32.0-36.0) 34.1 G/DL (32.0-36.0) Red Cell Distribution Width 14.9 % (11.6-14.8) 14.7 % (11.6-14.8) 15.3 % (11.6-14.8) Platelet Count 280 K/UL (150-450) 301 K/UL (150-450) 295 K/UL (150-450) Mean Platelet Volume 5.1 FL (6.5-10.1) 5.2 FL (6.5-10.1) 5.4 FL (6.5-10.1) Neutrophils (%) (Auto) 76.9 % (45.0-75.0) 70.7 % (45.0-75.0) 63.6 % (45.0-75.0) Lymphocytes (%) (Auto) 14.1 % (20.0-45.0) 18.4 % (20.0-45.0) 20.0 % (20.0-45.0) Monocytes (%) (Auto) 4.8 % (1.0-10.0) 5.7 % (1.0-10.0) 6.2 % (1.0-10.0) Eosinophils (%) (Auto) 3.3 % (0.0-3.0) 4.3 % (0.0-3.0) 9.0 % (0.0-3.0) Basophils (%) (Auto) 0.8 % (0.0-2.0) 0.9 % (0.0-2.0) 1.2 % (0.0-2.0) Sodium Level 138 MMOL/L (136-145) 137 MMOL/L (136-145) Potassium Level 3.2 MMOL/L (3.5-5.1) 3.5 MMOL/L (3.5-5.1) Chloride Level 101 MMOL/L (98-107) 100 MMOL/L (98-107) Carbon Dioxide Level 28 MMOL/L (21-32) 28 MMOL/L (21-32) Anion Gap 9 mmol/L (5-15) 10 mmol/L (5-15) Blood Urea Nitrogen 12 mg/dL (7-18) 13 mg/dL (7-18) Creatinine 0.8 MG/DL (0.55-1.30) 0.7 MG/DL (0.55-1.30) Estimat Glomerular Filtration Rate mL/min (>60) mL/min (>60) Glucose Level 179 MG/DL (74-106) 167 MG/DL (74-106) Lactic Acid Level 2.10 mmol/L (0.66-2.22) Calcium Level 9.3 MG/DL (8.5-10.1) 9.5 MG/DL (8.5-10.1) Total Bilirubin 0.2 MG/DL (0.2-1.0) 0.2 MG/DL (0.2-1.0) Aspartate Amino Transf (AST/SGOT) 13 U/L (15-37) 14 U/L (15-37) Alanine Aminotransferase (ALT/SGPT) 13 U/L (12-78) 13 U/L (12-78) Alkaline Phosphatase 105 U/L (46-116) 98 U/L (46-116) Total Creatine Kinase 18 U/L (26-308) Creatine Kinase MB < 0.5 NG/ML (0.0-3.6) Creatine Kinase MB Relative Index 2.7 Troponin I 0.000 ng/mL (0.000-0.056) Total Protein 6.6 G/DL (6.4-8.2) 6.7 G/DL (6.4-8.2) Albumin 2.5 G/DL (3.4-5.0) 2.5 G/DL (3.4-5.0) Globulin 4.1 g/dL 4.2 g/dL Albumin/Globulin Ratio 0.6 (1.0-2.7) 0.6 (1.0-2.7) Urine Color Pale yellow Urine Appearance Slightly cloudy Urine pH 5 (4.5-8.0) Urine Specific [place] 1.015 (1.005-1.035) Urine Protein 1+ (NEGATIVE) Urine Glucose (UA) Negative (NEGATIVE) Urine Ketones Negative (NEGATIVE) Urine Occult Blood 1+ (NEGATIVE) Urine Nitrite Negative (NEGATIVE) Urine Bilirubin Negative (NEGATIVE) Urine Urobilinogen Normal MG/DL (0.0-1.0) Urine Leukocyte Esterase 3+ (NEGATIVE) Urine RBC 2-4 /HPF (0 - 2) Urine WBC Tntc /HPF (0 - 2) Urine Squamous Epithelial Cells Few /LPF (NONE/OCC) Urine Bacteria Few /HPF (NONE) Rhythm Strip Diag. Results EP Interpretation: yes Rate: 78 Rhythm: NSR, no PVC's, no ectopy Chest X-Ray Diagnostic Results Chest X-Ray Diagnostic Results : Chest X-Ray Ordered: Yes # of Views/Limited/Complete: 1 View Indication: Chest Pain EP Interpretation: Yes Interpretation: no consolidation, no effusion, no pneumothorax, other - mild atelectasis Impression: Other - mild atelectasis Electronically Signed by: Usman Del Rio DO Last Vital Signs Date Time Temp Pulse Resp B/P (MAP) Pulse Ox O2 Delivery O2 Flow Rate FiO2 01/06/18 04:00 97.1 74 20 132/87 97 01/05/18 19:02 Room Air Status: improved Disposition: ADMITTED INPATIENT Condition: Serious Referrals: JANELLE RENEE (PCP) USMAN DEL RIO D.O. Jan 06, 2018 08:12
--- NOTE | 2018-01-06 08:48 | Cardiology Progress Note ---
Assessment/Plan Assessment/Plan 1. Sinus tachycardia, resolved, likely due to underlying urinary tract infection , continue coreg, hydration for underlying infection, off hydralazine which can cause reflex tachycardia. 2. Urinary tract infection. 3. Dementia. 4. History of ulcerative colitis. 5. History of hypertension, well controlled. Subjective Subjective Not on the telemetry unit. Denies chest pain or SOB. Objective Last 24 Hour Vital Signs Date Time Temp Pulse Resp B/P (MAP) Pulse Ox O2 Delivery O2 Flow Rate FiO2 01/06/18 04:00 97.1 74 20 132/87 97 01/06/18 00:00 97.0 96 20 117/77 98 01/05/18 21:00 80 114/64 01/05/18 20:00 97.0 80 20 114/64 96 01/05/18 19:02 79 18 Room Air 01/05/18 16:00 97.3 103 20 127/73 94 01/05/18 14:20 119/67 01/05/18 12:15 97.2 93 18 129/68 95 Room Air Intake and Output 01/05/18 01/06/18 19:00 07:00 Intake Total 360 ml 325.000 ml Balance 360 ml 325.000 ml Intake Oral 360 ml IV Total 325.000 ml # Voids 4 2 Laboratory Tests Test 01/05/18 11:44 01/06/18 06:40 White Blood Count 8.7 K/UL (4.8-10.8) 6.5 K/UL (4.8-10.8) Red Blood Count 4.18 M/UL (4.20-5.40) L 4.44 M/UL (4.20-5.40) Hemoglobin 11.5 G/DL (12.0-16.0) L 13.0 G/DL (12.0-16.0) Hematocrit 35.3 % (37.0-47.0) L 38.0 % (37.0-47.0) Mean Corpuscular Volume 85 FL (80-99) 86 FL (80-99) Mean Corpuscular Hemoglobin 27.5 PG (27.0-31.0) 29.2 PG (27.0-31.0) Mean Corpuscular Hemoglobin Concent 32.5 G/DL (32.0-36.0) 34.1 G/DL (32.0-36.0) Red Cell Distribution Width 14.7 % (11.6-14.8) 15.3 % (11.6-14.8) H Platelet Count 301 K/UL (150-450) 295 K/UL (150-450) Mean Platelet Volume 5.2 FL (6.5-10.1) L 5.4 FL (6.5-10.1) L Neutrophils (%) (Auto) 70.7 % (45.0-75.0) 63.6 % (45.0-75.0) Lymphocytes (%) (Auto) 18.4 % (20.0-45.0) L 20.0 % (20.0-45.0) Monocytes (%) (Auto) 5.7 % (1.0-10.0) 6.2 % (1.0-10.0) Eosinophils (%) (Auto) 4.3 % (0.0-3.0) H 9.0 % (0.0-3.0) H Basophils (%) (Auto) 0.9 % (0.0-2.0) 1.2 % (0.0-2.0) Sodium Level 137 MMOL/L (136-145) 138 MMOL/L (136-145) Potassium Level 3.5 MMOL/L (3.5-5.1) 3.8 MMOL/L (3.5-5.1) Chloride Level 100 MMOL/L (98-107) 104 MMOL/L (98-107) Carbon Dioxide Level 28 MMOL/L (21-32) 27 MMOL/L (21-32) Anion Gap 10 mmol/L (5-15) 7 mmol/L (5-15) Blood Urea Nitrogen 13 mg/dL (7-18) 14 mg/dL (7-18) Creatinine 0.7 MG/DL (0.55-1.30) 0.8 MG/DL (0.55-1.30) Estimat Glomerular Filtration Rate mL/min (>60) mL/min (>60) Glucose Level 167 MG/DL (74-106) H 128 MG/DL (74-106) H Calcium Level 9.5 MG/DL (8.5-10.1) 9.9 MG/DL (8.5-10.1) Total Bilirubin 0.2 MG/DL (0.2-1.0) Aspartate Amino Transf (AST/SGOT) 14 U/L (15-37) L Alanine Aminotransferase (ALT/SGPT) 13 U/L (12-78) Alkaline Phosphatase 98 U/L (46-116) Total Protein 6.7 G/DL (6.4-8.2) Albumin 2.5 G/DL (3.4-5.0) L Globulin 4.2 g/dL Albumin/Globulin Ratio 0.6 (1.0-2.7) L Microbiology Date/Time Source Procedure Growth Status 01/04/18 20:15 Blood Blood Culture - Preliminary NO GROWTH AFTER 24 HOURS Resulted 01/04/18 20:10 Blood Blood Culture - Preliminary NO GROWTH AFTER 24 HOURS Resulted 01/04/18 16:15 Blood Blood Culture - Preliminary NO GROWTH AFTER 24 HOURS Resulted 01/04/18 16:00 Blood Blood Culture - Preliminary NO GROWTH AFTER 24 HOURS Resulted 01/05/18 06:50 Indwelling Cath Urine Culture - Preliminary Mixed Urogenital Contaminants Resulted Objective HEENT: Atraumatic and normocephalic. Anicteric. Pupils are equal, round, and reactive to light and accommodation. Bitemporal wasting. NECK: JVP less than 5 centimeter. No carotid bruit. Carotid upstrokes 2+ bilaterally. CARDIOVASCULAR: Normal S1 and S2. Regular rate and rhythm. No murmurs, gallops, or rubs. PMI is at fourth intercostal space at the midclavicular line. LUNGS: Clear to auscultation bilaterally. ABDOMEN: Soft, nontender, and nondistended. No hepatosplenomegaly. Positive bowel sounds. EXTREMITIES: No evidence of edema, clubbing, or cyanosis. EL LARIOS Jan 06, 2018 08:48
[2018-01-06] MEDS: Lisinopril 10mg tab ORAL SCH (09:07)
[2018-01-06] MEDS: Carvedilol 6.25mg Tab ORAL SCH ×2 (09:07→20:11)
[2018-01-06] MEDS: Heparin 5000 units/ml inj SUBQ SCH ×2 (09:09→20:15)
[2018-01-06 12:00] VITALS: BP 139/77
--- NOTE | 2018-01-06 12:55 | Infectious Diseases Prog Note ---
Assessment/Plan Assessment/Plan A; Leukocytosis resolved Pyuria/UTI Metastatic colon cancer DM P; Discontinue Vancomycin Continue Azactam Subjective ROS Limited/Unobtainable: No Respiratory: Reports: no symptoms Cardiovascular: Reports: no symptoms Gastrointestinal/Abdominal: Reports: no symptoms Genitourinary: Reports: no symptoms Allergies: Coded Allergies: PENICILLINS (Verified Adverse Reaction, Severe, "passed out", 05/07/17) Objective Vital Signs Last 24 Hour Vital Signs Date Time Temp Pulse Resp B/P (MAP) Pulse Ox O2 Delivery O2 Flow Rate FiO2 01/06/18 12:00 97.3 80 18 139/77 95 01/06/18 09:08 74 132/87 01/06/18 09:07 74 132/87 01/06/18 09:07 132/87 01/06/18 08:00 97.2 84 18 142/79 93 01/06/18 04:00 97.1 74 20 132/87 97 01/06/18 00:00 97.0 96 20 117/77 98 01/05/18 21:00 80 114/64 01/05/18 20:00 97.0 80 20 114/64 96 01/05/18 19:02 79 18 Room Air 01/05/18 16:00 97.3 103 20 127/73 94 01/05/18 14:20 119/67 Height (Feet): 5 Height (Inches): 2.00 Weight (Pounds): 140 General Appearance: no acute distress HEENT: mucous membranes moist Respiratory/Chest: lungs clear Cardiovascular: normal rate, other - R arm PICC line Abdomen: soft, non tender Extremities: no edema Neurologic/Psychiatric: alert, oriented x 3, responsive Microbiology Date/Time Source Procedure Growth Status 01/04/18 20:15 Blood Blood Culture - Preliminary NO GROWTH AFTER 24 HOURS Resulted 01/04/18 20:10 Blood Blood Culture - Preliminary NO GROWTH AFTER 24 HOURS Resulted 01/04/18 16:15 Blood Blood Culture - Preliminary NO GROWTH AFTER 24 HOURS Resulted 01/04/18 16:00 Blood Blood Culture - Preliminary NO GROWTH AFTER 24 HOURS Resulted 01/04/18 21:30 Nasal Nares MRSA Culture - Final NO METHICILLIN RESISTANT STAPH AUREUS... Complete 01/05/18 06:50 Indwelling Cath Urine Culture - Preliminary Mixed Urogenital Contaminants Resulted 01/04/18 21:30 Rectum VRE Culture - Final NO VANCOMYCIN RESISTANT ENTEROCOCCUS ... Complete Laboratory Tests Test 01/06/18 06:40 White Blood Count 6.5 K/UL (4.8-10.8) Red Blood Count 4.44 M/UL (4.20-5.40) Hemoglobin 13.0 G/DL (12.0-16.0) Hematocrit 38.0 % (37.0-47.0) Mean Corpuscular Volume 86 FL (80-99) Mean Corpuscular Hemoglobin 29.2 PG (27.0-31.0) Mean Corpuscular Hemoglobin Concent 34.1 G/DL (32.0-36.0) Red Cell Distribution Width 15.3 % (11.6-14.8) H Platelet Count 295 K/UL (150-450) Mean Platelet Volume 5.4 FL (6.5-10.1) L Neutrophils (%) (Auto) 63.6 % (45.0-75.0) Lymphocytes (%) (Auto) 20.0 % (20.0-45.0) Monocytes (%) (Auto) 6.2 % (1.0-10.0) Eosinophils (%) (Auto) 9.0 % (0.0-3.0) H Basophils (%) (Auto) 1.2 % (0.0-2.0) Sodium Level 138 MMOL/L (136-145) Potassium Level 3.8 MMOL/L (3.5-5.1) Chloride Level 104 MMOL/L (98-107) Carbon Dioxide Level 27 MMOL/L (21-32) Anion Gap 7 mmol/L (5-15) Blood Urea Nitrogen 14 mg/dL (7-18) Creatinine 0.8 MG/DL (0.55-1.30) Estimat Glomerular Filtration Rate mL/min (>60) Glucose Level 128 MG/DL (74-106) H Calcium Level 9.9 MG/DL (8.5-10.1) Current Medications Medications (Trade) Dose Ordered Sig/Leonardo Route PRN Reason Start Time Stop Time Status Last Admin Dose Admin Acetaminophen (Tylenol) 650 mg Q4H PRN ORAL fever (temp>100.5F) 01/04/18 19:15 02/03/18 19:14 Albuterol/ Ipratropium (Albuterol/ Ipratropium) 3 ml Q4H PRN HHN Shortness of Breath 01/04/18 19:15 01/09/18 19:14 Amlodipine Besylate (Norvasc) 10 mg DAILY ORAL 01/05/18 09:00 02/04/18 08:59 01/06/18 09:08 Aztreonam 1 gm/ Sodium Chloride 50 ml @ 100 mls/hr EVERY 8 HOURS IVPB 01/04/18 21:00 01/11/18 20:59 01/06/18 06:00 Carvedilol (Coreg) 6.25 mg EVERY 12 HOURS ORAL 01/05/18 21:00 02/04/18 20:59 01/06/18 09:07 Chlorhexidine Gluconate (Minnie-Hex 2%) 1 applic DAILY@2000 TOPIC 01/05/18 20:00 02/04/18 19:59 01/05/18 21:00 Dextrose (Dextrose 50%) STAT PRN IV Hypoglycemia 01/04/18 20:00 02/03/18 19:59 Heparin Sodium (Porcine) (Heparin 5000 units/ml) 5,000 units EVERY 12 HOURS SUBQ 01/04/18 21:00 02/03/18 20:59 01/06/18 09:09 Insulin Aspart (NovoLOG) BEFORE MEALS AND HS SUBQ 01/04/18 21:00 02/03/18 20:59 01/06/18 11:51 Lisinopril (Zestril) 10 mg DAILY ORAL 01/05/18 09:00 02/04/18 08:59 01/06/18 09:07 Lorazepam (Ativan) 1 mg Q6H PRN ORAL For Anxiety 01/05/18 05:00 01/12/18 04:59 Morphine Sulfate (Morphine Sulfate) 2 mg Q4H PRN IVP Moderate Pain (Pain Scale 4-6) 01/04/18 19:15 01/11/18 19:14 Ondansetron HCl (Zofran) 4 mg Q6H PRN IVP Nausea & Vomiting 01/04/18 19:15 02/03/18 19:14 Phenazopyridine HCl (Pyridium) 100 mg DAILYPRN PRN ORAL dysuria 01/04/18 19:15 02/03/18 19:14 Polyethylene Glycol (Miralax) 17 gm DAILYPRN PRN ORAL Constipation 01/04/18 19:15 02/03/18 19:14 Risperidone (RisperDAL) 2 mg BID ORAL 01/05/18 09:00 02/04/18 08:59 01/06/18 09:07 Temazepam (Restoril) 15 mg HSPRN PRN ORAL Insomnia 01/04/18 19:15 01/11/18 19:14 Vancomycin HCl (Vanco rx to dose) 1 ea DAILY PRN MISC PER RX PROTOCOL 01/04/18 19:30 02/03/18 19:29 Vancomycin HCl 1 gm/Dextrose 275 ml @ 183.708 mls/hr Q24H IVPB 01/04/18 22:00 01/09/18 21:59 01/05/18 21:19 AMILCAR MAURICIO Jan 06, 2018 12:55
--- NOTE | 2018-01-06 13:44 | General Progress Note ---
Assessment/Plan Problem List: (1) Diabetes ICD Codes: E11.9 - Type 2 diabetes mellitus without complications SNOMED: 25458275 (2) Weak ICD Codes: R53.1 - Weakness SNOMED: 84301170 (3) Confusion ICD Codes: R41.0 - Disorientation, unspecified SNOMED: 629213674 (4) Anemia ICD Codes: D64.9 - Anemia, unspecified SNOMED: 442834744 (5) Schizophrenia ICD Codes: F20.9 - Schizophrenia, unspecified SNOMED: 30735703 (6) Sepsis ICD Codes: A41.9 - Sepsis, unspecified organism SNOMED: 30555590 Status: unchanged Assessment/Plan ot pt diet abx psyc tx cbc bmp am Subjective Constitutional: Reports: weakness Allergies: Coded Allergies: PENICILLINS (Verified Adverse Reaction, Severe, "passed out", 05/07/17) All Systems: reviewed and negative except above Subjective calm in bed confused Objective Last 24 Hour Vital Signs Date Time Temp Pulse Resp B/P (MAP) Pulse Ox O2 Delivery O2 Flow Rate FiO2 01/06/18 12:00 97.3 80 18 139/77 95 01/06/18 09:08 74 132/87 01/06/18 09:07 74 132/87 01/06/18 09:07 132/87 01/06/18 08:00 97.2 84 18 142/79 93 01/06/18 04:00 97.1 74 20 132/87 97 01/06/18 00:00 97.0 96 20 117/77 98 01/05/18 21:00 80 114/64 01/05/18 20:00 97.0 80 20 114/64 96 01/05/18 19:02 79 18 Room Air 01/05/18 16:00 97.3 103 20 127/73 94 01/05/18 14:20 119/67 Intake and Output 01/05/18 01/06/18 19:00 07:00 Intake Total 360 ml 325.000 ml Balance 360 ml 325.000 ml Intake Oral 360 ml IV Total 325.000 ml # Voids 4 2 Laboratory Tests 01/06/18 06:40: White Blood Count 6.5, Red Blood Count 4.44, Hemoglobin 13.0, Hematocrit 38.0, Mean Corpuscular Volume 86, Mean Corpuscular Hemoglobin 29.2, Mean Corpuscular Hemoglobin Concent 34.1, Red Cell Distribution Width 15.3H, Platelet Count 295, Mean Platelet Volume 5.4L, Neutrophils (%) (Auto) 63.6, Lymphocytes (%) (Auto) 20.0, Monocytes (%) (Auto) 6.2, Eosinophils (%) (Auto) 9.0H, Basophils (%) (Auto ) 1.2, Sodium Level 138, Potassium Level 3.8, Chloride Level 104, Carbon Dioxide Level 27, Anion Gap 7, Blood Urea Nitrogen 14, Creatinine 0.8, Estimat Glomerular Filtration Rate , Glucose Level 128H, Calcium Level 9.9 Height (Feet): 5 Height (Inches): 2.00 Weight (Pounds): 140 General Appearance: confused EENT: normal ENT inspection Neck: normal alignment Cardiovascular: normal peripheral pulses, normal rate, regular rhythm Respiratory/Chest: chest wall non-tender, lungs clear, normal breath sounds Abdomen: normal bowel sounds, non tender, soft Extremities: normal inspection Edema: no edema noted Arm (L), no edema noted Arm (R), no edema noted Leg (L), no edema noted Leg (R), no edema noted Pedal (L), no edema noted Pedal (R), no edema noted Generalized Neurologic: responsive, motor weakness Skin: normal pigmentation, warm/dry JANELLE RENEE Jan 06, 2018 13:44
--- NOTE | 2018-01-06 15:25 | Wound Care Consultation ---
Wound Assessment Wound Assessment : Wound Number: 1 Wound Present on Admission: Yes New Wound: No Status Change of Wound: No Wound Location Body Site Modif: mid Wound Location Body Site: sacral Wound Type: pressure ulcer Akilah Test: Does not Akilah Pressure Ulcer Stage: Deep Tissue Injury Wound Thickness: Full Thickness Wound Length: 5.0 Wound Width: 6.5 Wound Depth: utd Percent of Wound [place]/Red: 100 - deep Wound Drainage Amount: None Wound Drainage Odor: None/Absent Tissue Surrounding Wound: Erythemic Wound General Appearance: Reddened - deep red Wound Comment #1 SDTI on sacral area Recommendation -Local wound car per protocol -Optimize nutrition -Offload both heels -Heel protector on both heels -Turn and reposition -Low air loss mattress -Keep clean and dry -Assess and f/u accordingly for any changes CHINA MANE RN Jan 06, 2018 15:25
[2018-01-06 16:56] VITALS: BP 142/85
--- NOTE | 2018-01-06 18:17 | Pulmonology Progress Note ---
Assessment/Plan Problems: (1) Sepsis (2) Colon cancer (3) HTN (hypertension) (4) Metastatic adenocarcinoma Assessment/Plan continue abx check cultures azactima , vancomycin stopped check electrolytes titrate fio2 to sat of 92% monitor bp f/u Id recommendations dvt prophylaxis. Subjective ROS Limited/Unobtainable: No Constitutional: Reports: no symptoms HEENT: Repors: no symptoms Respiratory: Reports: no symptoms Allergies: Coded Allergies: PENICILLINS (Verified Adverse Reaction, Severe, "passed out", 05/07/17) Objective Last 24 Hour Vital Signs Date Time Temp Pulse Resp B/P (MAP) Pulse Ox O2 Delivery O2 Flow Rate FiO2 01/06/18 16:56 97.7 104 18 142/85 98 Room Air 01/06/18 14:25 78 18 Room Air 21 01/06/18 12:00 97.3 80 18 139/77 95 01/06/18 09:08 74 132/87 01/06/18 09:07 74 132/87 01/06/18 09:07 132/87 01/06/18 08:00 97.2 84 18 142/79 93 01/06/18 04:00 97.1 74 20 132/87 97 01/06/18 00:00 97.0 96 20 117/77 98 01/05/18 21:00 80 114/64 01/05/18 20:00 97.0 80 20 114/64 96 01/05/18 19:02 79 18 Room Air Intake and Output 01/05/18 01/06/18 19:00 07:00 Intake Total 360 ml 325.000 ml Balance 360 ml 325.000 ml Intake Oral 360 ml IV Total 325.000 ml # Voids 4 2 Objective Head: normocephalic, atraumatic Eyes: bilateral eye PERRL, bilateral eye EOMI ENT: hearing grossly normal, normal pharynx, TMs + canals normal, uvula midline Neck: full range of motion, supple, no meningismus, no bony tend Respiratory: no retraction, no accessory muscle use, wheezing - Cardiovascular #1: normal peripheral pulses, regular rate, rhythm, no edema, no gallop, no JVD, no murmur Gastrointestinal: normal bowel sounds, non tender, soft, no mass, no organomegaly, non-distended, no guarding, no hernia, no pulsatile mass, no rebound Genitourinary: no CVA tenderness Musculoskeletal: normal inspection Neurologic: oriented x3, responsive, 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 Complete 01/05/18 06:50 Indwelling Cath Urine Culture - Preliminary Mixed Urogenital Contaminants Resulted 01/05/18 03:00 Abdomen Gram Stain - Final Resulted 01/05/18 03:00 Abdomen Wound Culture Pending Resulted 01/04/18 21:30 Rectum VRE Culture - Final NO VANCOMYCIN RESISTANT ENTEROCOCCUS ... Complete Laboratory Tests 01/06/18 06:40: White Blood Count 6.5, Red Blood Count 4.44, Hemoglobin 13.0, Hematocrit 38.0, Mean Corpuscular Volume 86, Mean Corpuscular Hemoglobin 29.2, Mean Corpuscular Hemoglobin Concent 34.1, Red Cell Distribution Width 15.3H, Platelet Count 295, Mean Platelet Volume 5.4L, Neutrophils (%) (Auto) 63.6, Lymphocytes (%) (Auto) 20.0, Monocytes (%) (Auto) 6.2, Eosinophils (%) (Auto) 9.0H, Basophils (%) (Auto ) 1.2, Sodium Level 138, Potassium Level 3.8, Chloride Level 104, Carbon Dioxide Level 27, Anion Gap 7, Blood Urea Nitrogen 14, Creatinine 0.8, Estimat Glomerular Filtration Rate , Glucose Level 128H, Calcium Level 9.9 Current Medications Medications (Trade) Dose Ordered Sig/Leonardo Route PRN Reason Start Time Stop Time Status Last Admin Dose Admin Acetaminophen (Tylenol) 650 mg Q4H PRN ORAL fever (temp>100.5F) 01/04/18 19:15 02/03/18 19:14 Albuterol/ Ipratropium (Albuterol/ Ipratropium) 3 ml Q4H PRN HHN Shortness of Breath 01/04/18 19:15 01/09/18 19:14 Amlodipine Besylate (Norvasc) 10 mg DAILY ORAL 01/05/18 09:00 02/04/18 08:59 01/06/18 09:08 Aztreonam 1 gm/ Sodium Chloride 50 ml @ 100 mls/hr EVERY 8 HOURS IVPB 01/04/18 21:00 01/11/18 20:59 01/06/18 14:34 Carvedilol (Coreg) 6.25 mg EVERY 12 HOURS ORAL 01/05/18 21:00 02/04/18 20:59 01/06/18 09:07 Chlorhexidine Gluconate (Minnie-Hex 2%) 1 applic DAILY@2000 TOPIC 01/05/18 20:00 02/04/18 19:59 01/05/18 21:00 Dextrose (Dextrose 50%) STAT PRN IV Hypoglycemia 01/04/18 20:00 02/03/18 19:59 Heparin Sodium (Porcine) (Heparin 5000 units/ml) 5,000 units EVERY 12 HOURS SUBQ 01/04/18 21:00 02/03/18 20:59 01/06/18 09:09 Insulin Aspart (NovoLOG) BEFORE MEALS AND HS SUBQ 01/04/18 21:00 02/03/18 20:59 01/06/18 16:30 Lisinopril (Zestril) 10 mg DAILY ORAL 01/05/18 09:00 02/04/18 08:59 01/06/18 09:07 Lorazepam (Ativan) 1 mg Q6H PRN ORAL For Anxiety 01/05/18 05:00 01/12/18 04:59 Morphine Sulfate (Morphine Sulfate) 2 mg Q4H PRN IVP Moderate Pain (Pain Scale 4-6) 01/04/18 19:15 01/11/18 19:14 Ondansetron HCl (Zofran) 4 mg Q6H PRN IVP Nausea & Vomiting 01/04/18 19:15 02/03/18 19:14 Phenazopyridine HCl (Pyridium) 100 mg DAILYPRN PRN ORAL dysuria 01/04/18 19:15 02/03/18 19:14 Polyethylene Glycol (Miralax) 17 gm DAILYPRN PRN ORAL Constipation 01/04/18 19:15 02/03/18 19:14 Risperidone (RisperDAL) 2 mg BID ORAL 01/05/18 09:00 02/04/18 08:59 01/06/18 17:03 Temazepam (Restoril) 15 mg HSPRN PRN ORAL Insomnia 01/04/18 19:15 01/11/18 19:14 MEHRAN BARAJAS Jan 06, 2018 18:17
[2018-01-06 20:00] VITALS: BP 135/74
[2018-01-06] MEDS: Dyna-Hex 2% Top Sol 2oz TOPIC SCH (20:10)
--- NOTE | 2018-01-06 21:15 | Progress Note ---
DATE: 01/06/2018 SUBJECTIVE: The patient is a 72-year-old female with sepsis, confusion, and disorganized thought process. She is still having mood , seemed to have no insight into her illness and is still disorganized, having poor insight into both her medical and psychiatric illnesses. She could not explain why she is in the hospice. She says "I don't understand why I'm here. There is nothing wrong with me. There is never anything wrong with me" she says. The patient states this in a very agitated manner . MENTAL STATUS EXAMINATION: This is a 72-year-old female with psychomotor agitation. Mood is irritable and agitated. Affect is guarded and restricted. Thought process is disorganized and illogical. Denies any current suicidal or homicidal thoughts. Insight and judgment is poor. DIAGNOSIS: Paranoid schizophrenia with acute exacerbation. PLAN: Continue to stabilize her mood. Stabilize with anti-psychotics to stabilize her mood. Provide with 15 to 20 minutes of supportive therapy. Seen and assessed at bedside. Chart reviewed and discussed with staff. Jasvir Montano M.D. DR: JULIANN JOB#: [id number] CC:
[2018-01-07] VITALS (7 sets, daily range): BP systolic 122–150; BP diastolic 71–104
--- NOTE | 2018-01-07 06:00 | Consultation ---
DATE OF CONSULTATION: 01/06/2018 HEMATOLOGY/ONCOLOGY CONSULTATION CONSULTING PHYSICIAN: Cheko Samuel M.D. REQUESTING PHYSICIAN: Becky Recinos M.D. and Michael Moreira D.O. IDENTIFICATION: Dear Dr. Recinos, The patient is a pleasant 72-year-old female with past medical history significant for being a resident of [facility], encephalopathy, diabetes mellitus, seen by Infectious Disease Service. The patient has an elevated white count. The patient has a history of metastatic cancer that spread to the liver from the colon cancer source. Reviewed her medical record, and actually I had seen her in the past. She had a CA 19-9 outpatient management. She has poor understanding of her underlying disease status. I have discussed with DPOA and in the past again she is a retirement resident, lives in a SNF Facility. Hematology Service consulted and I greatly appreciate this consultation. PAST MEDICAL HISTORY: As noted above, ulcerative colitis, dysphagia, esophageal stricture, diverticulitis, history of sepsis, and hypertension. MEDICATIONS: Reglan, magnesium hydroxide, levofloxacin, heparin, Lovenox, Benadryl, Catapres, Coreg, and Saphris. ALLERGIES: Penicillin. SOCIAL HISTORY: Lives in [facility] under the care of Dr. Michael Moreira. No illicit drug use. No alcohol. No tobacco. FAMILY HISTORY: Noncontributory. No . REVIEW OF SYSTEMS: CONSTITUTIONAL: No fevers, chills, or night sweats. SKIN: No rashes, bumps, or itching. HEENT: No headache, hearing or vision changes. BREASTS: No lumps, pain, or discharge. PULMONARY: No cough, sputum, or shortness of breath. GASTROINTESTINAL: No nausea, vomiting, or diarrhea. GENITOURINARY: No dysuria, frequency, or urgency. MUSCULOSKELETAL: No joint swelling, muscle pain, or trauma. PHYSICAL EXAMINATION: VITAL SIGNS: Reviewed. GENERAL: No acute distress. PULMONARY: Decreased breath sounds. CARDIOVASCULAR: Regular rate. No S3 or S4. ABDOMEN: Soft, nontender, and nondistended. EXTREMITIES: No cyanosis, swelling, or edema. LABORATORY DATA: Labs reviewed. ASSESSMENT AND RECOMMENDATIONS: 1. Metastatic colon cancer with colonic thickening and spread to the liver and multiple hepatic masses noted. Most recently, the patient had a CAT scan in May 2017. She had elevated tumor markers as well. She is again currently a resident in a long-term care facility. Status post hemicolectomy. Continue to outpatient setting. 2. Leukocytosis, potentially secondary to underlying malignancy versus infection. She is on broad-spectrum antibiotics. 3. Anemia due to underlying chronic disease. Continue to closely monitor. 4. Hypertension. Blood pressure is better controlled at this moment. 5. Sepsis, likely due to underlying infection. Continue to closely monitor as per Infectious Disease Service. 6. Psychiatric disorder. She has been seen by Dr. Jasvir Montano. She has been . I appreciate the consultation by Dr. Michael Moreira. I will be happy to follow this patient. Continue to closely monitor. Try discuss with staff. Cheko Samuel M.D. DR: YUE JOB#: [id number] CC:
[2018-01-07] MEDS: Aztreonam Inj 1 GM in NS 50 ML IVPB SCH ×2 (06:30→14:12)
[2018-01-07] MEDS: NovoLOG Insulin Flexpen SUBQ SCH ×4 (06:34→20:58)
[2018-01-07 08:19] LABS: BASOPHILS % (AUTO) 1.3 % (0.0-2.0); HEMATOCRIT 38.7 % (37.0-47.0); HEMOGLOBIN 12.9 G/DL (12.0-16.0); LYMPHOCYTES % (AUTO) 21.9 % (20.0-45.0); MEAN CORPUSCULAR VOLUME 85 FL (80-99); NEUTROPHILS % (AUTO) 63.8 % (45.0-75.0); PLATELET COUNT 286 K/UL (150-450); RED BLOOD COUNT 4.53 M/UL (4.20-5.40); WHITE BLOOD COUNT 6.4 K/UL (4.8-10.8)
[2018-01-07] MEDS: Carvedilol 6.25mg Tab ORAL SCH ×2 (08:38→20:56)
[2018-01-07] MEDS: Lisinopril 10mg tab ORAL SCH (08:39)
[2018-01-07] MEDS: Heparin 5000 units/ml inj SUBQ SCH ×2 (08:39→20:58)
[2018-01-07 08:53] LABS: ANION GAP 6 mmol/L (5-15); BLOOD UREA NITROGEN 15 mg/dL (7-18); CALCIUM 9.9 MG/DL (8.5-10.1); CARBON DIOXIDE 29 MMOL/L (21-32); CHLORIDE 103 MMOL/L (98-107); CREATININE 0.8 MG/DL (0.55-1.30); POTASSIUM 3.9 MMOL/L (3.5-5.1); SODIUM 138 MMOL/L (136-145)
--- NOTE | 2018-01-07 12:12 | General Progress Note ---
Assessment/Plan Problem List: (1) Diabetes ICD Codes: E11.9 - Type 2 diabetes mellitus without complications SNOMED: 91856315 (2) Weak ICD Codes: R53.1 - Weakness SNOMED: 64439320 (3) Confusion ICD Codes: R41.0 - Disorientation, unspecified SNOMED: 802226101 (4) Anemia ICD Codes: D64.9 - Anemia, unspecified SNOMED: 610777697 (5) Schizophrenia ICD Codes: F20.9 - Schizophrenia, unspecified SNOMED: 39407910 (6) Sepsis ICD Codes: A41.9 - Sepsis, unspecified organism SNOMED: 00757934 Status: stable, progressing, tolerating diet Assessment/Plan ot pt diet abx psyc tx dc if clear Subjective Allergies: Coded Allergies: PENICILLINS (Verified Adverse Reaction, Severe, "passed out", 05/07/17) All Systems: reviewed and negative except above Subjective calm in bed confused Objective Last 24 Hour Vital Signs Date Time Temp Pulse Resp B/P (MAP) Pulse Ox O2 Delivery O2 Flow Rate FiO2 01/07/18 08:39 131/79 01/07/18 08:38 68 131/79 01/07/18 08:38 68 131/79 01/07/18 08:15 97.3 90 18 134/76 98 Room Air 01/07/18 04:00 97.9 68 18 131/79 98 01/07/18 00:00 97.3 57 19 137/72 100 Room Air 01/06/18 20:11 79 135/74 01/06/18 20:00 97.3 79 18 135/74 98 Room Air 01/06/18 19:07 87 18 Room Air 21 01/06/18 16:56 97.7 104 18 142/85 98 Room Air 01/06/18 14:25 78 18 Room Air 21 Intake and Output 01/06/18 01/07/18 19:00 07:00 Intake Total 1190 ml 50 ml Balance 1190 ml 50 ml Intake Oral 1140 ml IV Total 50 ml 50 ml # Voids 5 3 Laboratory Tests 01/07/18 07:10: White Blood Count 6.4, Red Blood Count 4.53, Hemoglobin 12.9, Hematocrit 38.7, Mean Corpuscular Volume 85, Mean Corpuscular Hemoglobin 28.6, Mean Corpuscular Hemoglobin Concent 33.4, Red Cell Distribution Width 15.0H, Platelet Count 286, Mean Platelet Volume 5.4L, Neutrophils (%) (Auto) 63.8, Lymphocytes (%) (Auto) 21.9, Monocytes (%) (Auto) 5.0, Eosinophils (%) (Auto) 8.0H, Basophils (%) (Auto ) 1.3, Sodium Level 138, Potassium Level 3.9, Chloride Level 103, Carbon Dioxide Level 29, Anion Gap 6, Blood Urea Nitrogen 15, Creatinine 0.8, Estimat Glomerular Filtration Rate , Glucose Level 135H, Calcium Level 9.9 Height (Feet): 5 Height (Inches): 2.00 Weight (Pounds): 140 General Appearance: lethargic, confused EENT: normal ENT inspection Neck: normal alignment Cardiovascular: normal peripheral pulses, normal rate, regular rhythm Respiratory/Chest: chest wall non-tender, lungs clear, normal breath sounds Abdomen: normal bowel sounds, non tender, soft Extremities: normal inspection Edema: no edema noted Arm (L), no edema noted Arm (R), no edema noted Leg (L), no edema noted Leg (R), no edema noted Pedal (L), no edema noted Pedal (R), no edema noted Generalized Neurologic: responsive, motor weakness Skin: normal pigmentation, warm/dry JANELLE RENEE Jan 07, 2018 12:12
--- NOTE | 2018-01-07 15:09 | Infectious Diseases Prog Note ---
Assessment/Plan Assessment/Plan A; Leukocytosis resolved Pyuria/UTI Metastatic colon cancer DM P; Discontinue Azactam start on Nitrofurantoin X 3 days Agree with discharge Subjective ROS Limited/Unobtainable: No Constitutional: Reports: no symptoms Cardiovascular: Reports: no symptoms Gastrointestinal/Abdominal: Reports: no symptoms Allergies: Coded Allergies: PENICILLINS (Verified Adverse Reaction, Severe, "passed out", 05/07/17) Objective Vital Signs Last 24 Hour Vital Signs Date Time Temp Pulse Resp B/P (MAP) Pulse Ox O2 Delivery O2 Flow Rate FiO2 01/07/18 12:15 97.3 74 19 128/71 96 Room Air 01/07/18 08:39 131/79 01/07/18 08:38 68 131/79 01/07/18 08:38 68 131/79 01/07/18 08:15 97.3 90 18 134/76 98 Room Air 01/07/18 04:00 97.9 68 18 131/79 98 01/07/18 00:00 97.3 57 19 137/72 100 Room Air 01/06/18 20:11 79 135/74 01/06/18 20:00 97.3 79 18 135/74 98 Room Air 01/06/18 19:07 87 18 Room Air 21 01/06/18 16:56 97.7 104 18 142/85 98 Room Air Height (Feet): 5 Height (Inches): 2.00 Weight (Pounds): 140 General Appearance: no acute distress HEENT: mucous membranes moist Respiratory/Chest: lungs clear Cardiovascular: normal rate Abdomen: soft, non tender Extremities: no edema Neurologic/Psychiatric: alert, responsive Microbiology Date/Time Source Procedure Growth Status 01/04/18 20:15 Blood Blood Culture - Preliminary NO GROWTH AFTER 48 HOURS Resulted 01/04/18 20:10 Blood Blood Culture - Preliminary NO GROWTH AFTER 48 HOURS Resulted 01/04/18 16:15 Blood Blood Culture - Preliminary NO GROWTH AFTER 48 HOURS Resulted 01/04/18 16:00 Blood Blood Culture - Preliminary NO GROWTH AFTER 48 HOURS Resulted 01/04/18 21:30 Nasal Nares MRSA Culture - Final NO METHICILLIN RESISTANT STAPH AUREUS... Complete 01/05/18 06:50 Indwelling Cath Urine Culture - Preliminary Mixed Urogenital Contaminants Streptococcus Species Resulted 01/05/18 03:00 Abdomen Gram Stain - Final Resulted 01/05/18 03:00 Abdomen Wound Culture Pending Resulted 01/04/18 21:30 Rectum VRE Culture - Final NO VANCOMYCIN RESISTANT ENTEROCOCCUS ... Complete Laboratory Tests Test 01/07/18 07:10 White Blood Count 6.4 K/UL (4.8-10.8) Red Blood Count 4.53 M/UL (4.20-5.40) Hemoglobin 12.9 G/DL (12.0-16.0) Hematocrit 38.7 % (37.0-47.0) Mean Corpuscular Volume 85 FL (80-99) Mean Corpuscular Hemoglobin 28.6 PG (27.0-31.0) Mean Corpuscular Hemoglobin Concent 33.4 G/DL (32.0-36.0) Red Cell Distribution Width 15.0 % (11.6-14.8) H Platelet Count 286 K/UL (150-450) Mean Platelet Volume 5.4 FL (6.5-10.1) L Neutrophils (%) (Auto) 63.8 % (45.0-75.0) Lymphocytes (%) (Auto) 21.9 % (20.0-45.0) Monocytes (%) (Auto) 5.0 % (1.0-10.0) Eosinophils (%) (Auto) 8.0 % (0.0-3.0) H Basophils (%) (Auto) 1.3 % (0.0-2.0) Sodium Level 138 MMOL/L (136-145) Potassium Level 3.9 MMOL/L (3.5-5.1) Chloride Level 103 MMOL/L (98-107) Carbon Dioxide Level 29 MMOL/L (21-32) Anion Gap 6 mmol/L (5-15) Blood Urea Nitrogen 15 mg/dL (7-18) Creatinine 0.8 MG/DL (0.55-1.30) Estimat Glomerular Filtration Rate mL/min (>60) Glucose Level 135 MG/DL (74-106) H Calcium Level 9.9 MG/DL (8.5-10.1) Current Medications Medications (Trade) Dose Ordered Sig/Leonardo Route PRN Reason Start Time Stop Time Status Last Admin Dose Admin Acetaminophen (Tylenol) 650 mg Q4H PRN ORAL fever (temp>100.5F) 01/04/18 19:15 02/03/18 19:14 Albuterol/ Ipratropium (Albuterol/ Ipratropium) 3 ml Q4H PRN HHN Shortness of Breath 01/04/18 19:15 01/09/18 19:14 Amlodipine Besylate (Norvasc) 10 mg DAILY ORAL 01/05/18 09:00 02/04/18 08:59 01/07/18 08:38 Aztreonam 1 gm/ Sodium Chloride 50 ml @ 100 mls/hr EVERY 8 HOURS IVPB 01/04/18 21:00 01/11/18 20:59 01/07/18 14:12 Carvedilol (Coreg) 6.25 mg EVERY 12 HOURS ORAL 01/05/18 21:00 02/04/18 20:59 01/07/18 08:38 Chlorhexidine Gluconate (Minnie-Hex 2%) 1 applic DAILY@2000 TOPIC 01/05/18 20:00 02/04/18 19:59 01/06/18 20:10 Dextrose (Dextrose 50%) STAT PRN IV Hypoglycemia 01/04/18 20:00 02/03/18 19:59 Heparin Sodium (Porcine) (Heparin 5000 units/ml) 5,000 units EVERY 12 HOURS SUBQ 01/04/18 21:00 02/03/18 20:59 01/07/18 08:39 Insulin Aspart (NovoLOG) BEFORE MEALS AND HS SUBQ 01/04/18 21:00 02/03/18 20:59 01/07/18 11:25 Lisinopril (Zestril) 10 mg DAILY ORAL 01/05/18 09:00 02/04/18 08:59 01/07/18 08:39 Lorazepam (Ativan) 1 mg Q6H PRN ORAL For Anxiety 01/05/18 05:00 01/12/18 04:59 Morphine Sulfate (Morphine Sulfate) 2 mg Q4H PRN IVP Moderate Pain (Pain Scale 4-6) 01/04/18 19:15 01/11/18 19:14 Ondansetron HCl (Zofran) 4 mg Q6H PRN IVP Nausea & Vomiting 01/04/18 19:15 02/03/18 19:14 Phenazopyridine HCl (Pyridium) 100 mg DAILYPRN PRN ORAL dysuria 01/04/18 19:15 02/03/18 19:14 Polyethylene Glycol (Miralax) 17 gm DAILYPRN PRN ORAL Constipation 01/04/18 19:15 02/03/18 19:14 Risperidone (RisperDAL) 2 mg BID ORAL 01/05/18 09:00 02/04/18 08:59 01/07/18 08:38 Temazepam (Restoril) 15 mg HSPRN PRN ORAL Insomnia 01/04/18 19:15 01/11/18 19:14 AMILCAR MAURICIO Jan 07, 2018 15:09
--- NOTE | 2018-01-07 15:30 | Progress Note ---
DATE: 01/07/2018 SUBJECTIVE: The patient is a 72-year-old female patient. She has sepsis. She has got confusion and disorganized thought process. Poor cognition secondary to the progression of her medical illness. Because of her decline in cognition, her attending physician has requested daily psychiatric consultation to manage her mood lability and psychosis. MENTAL STATUS EXAMINATION: This is a 72-year-old female with psychomotor agitation. Mood is irritable and agitated. Affect is guarded and restricted. Thought process is disorganized and illogical. Denies any current suicidal or homicidal thoughts. Insight and judgment is poor. 2/3 word recall, memory slightly poor, but orientation x2. DIAGNOSIS: Paranoid schizophrenia with acute exacerbation. PLAN: My plan for this patient, I am going to continue treating her with a medication regimen of Risperdal 2 mg twice a day to reduce her agitation, irritability, and to reduce psychosis and encouraged her to interact appropriately with staff and other patients. Chart was reviewed and discussed with staff. Seen and assessed at bedside. . A 15 to 20 minutes supportive therapy provided. Jasvir Montano M.D. DR: DEVON JOB#: [id number] CC:
--- NOTE | 2018-01-07 16:00 | Cardiology Progress Note ---
Assessment/Plan Assessment/Plan 1. Sinus tachycardia likely due to underlying urinary tract infection,resolved, continue coreg and hydration. 2. History of hypertension, well controlled. Subjective Subjective Clinically the same. Denies chest pain or SOB. Objective Last 24 Hour Vital Signs Date Time Temp Pulse Resp B/P (MAP) Pulse Ox O2 Delivery O2 Flow Rate FiO2 01/07/18 12:15 97.3 74 19 128/71 96 Room Air 01/07/18 08:39 131/79 01/07/18 08:38 68 131/79 01/07/18 08:38 68 131/79 01/07/18 08:15 97.3 90 18 134/76 98 Room Air 01/07/18 04:00 97.9 68 18 131/79 98 01/07/18 00:00 97.3 57 19 137/72 100 Room Air 01/06/18 20:11 79 135/74 01/06/18 20:00 97.3 79 18 135/74 98 Room Air 01/06/18 19:07 87 18 Room Air 21 01/06/18 16:56 97.7 104 18 142/85 98 Room Air Intake and Output 01/06/18 01/07/18 19:00 07:00 Intake Total 1190 ml 50 ml Balance 1190 ml 50 ml Intake Oral 1140 ml IV Total 50 ml 50 ml # Voids 5 3 Laboratory Tests Test 01/07/18 07:10 White Blood Count 6.4 K/UL (4.8-10.8) Red Blood Count 4.53 M/UL (4.20-5.40) Hemoglobin 12.9 G/DL (12.0-16.0) Hematocrit 38.7 % (37.0-47.0) Mean Corpuscular Volume 85 FL (80-99) Mean Corpuscular Hemoglobin 28.6 PG (27.0-31.0) Mean Corpuscular Hemoglobin Concent 33.4 G/DL (32.0-36.0) Red Cell Distribution Width 15.0 % (11.6-14.8) H Platelet Count 286 K/UL (150-450) Mean Platelet Volume 5.4 FL (6.5-10.1) L Neutrophils (%) (Auto) 63.8 % (45.0-75.0) Lymphocytes (%) (Auto) 21.9 % (20.0-45.0) Monocytes (%) (Auto) 5.0 % (1.0-10.0) Eosinophils (%) (Auto) 8.0 % (0.0-3.0) H Basophils (%) (Auto) 1.3 % (0.0-2.0) Sodium Level 138 MMOL/L (136-145) Potassium Level 3.9 MMOL/L (3.5-5.1) Chloride Level 103 MMOL/L (98-107) Carbon Dioxide Level 29 MMOL/L (21-32) Anion Gap 6 mmol/L (5-15) Blood Urea Nitrogen 15 mg/dL (7-18) Creatinine 0.8 MG/DL (0.55-1.30) Estimat Glomerular Filtration Rate mL/min (>60) Glucose Level 135 MG/DL (74-106) H Calcium Level 9.9 MG/DL (8.5-10.1) Microbiology Date/Time Source Procedure Growth Status 01/04/18 20:15 Blood Blood Culture - Preliminary NO GROWTH AFTER 48 HOURS Resulted 01/04/18 20:10 Blood Blood Culture - Preliminary NO GROWTH AFTER 48 HOURS Resulted 01/04/18 16:15 Blood Blood Culture - Preliminary NO GROWTH AFTER 48 HOURS Resulted 01/04/18 16:00 Blood Blood Culture - Preliminary NO GROWTH AFTER 48 HOURS Resulted 01/04/18 21:30 Nasal Nares MRSA Culture - Final NO METHICILLIN RESISTANT STAPH AUREUS... Complete 01/05/18 06:50 Indwelling Cath Urine Culture - Preliminary Mixed Urogenital Contaminants Streptococcus Species Resulted 01/05/18 03:00 Abdomen Gram Stain - Final Resulted 01/05/18 03:00 Abdomen Wound Culture Pending Resulted 01/04/18 21:30 Rectum VRE Culture - Final NO VANCOMYCIN RESISTANT ENTEROCOCCUS ... Complete Objective HEENT: Atraumatic and normocephalic. Anicteric. Pupils are equal, round, and reactive to light and accommodation. Bitemporal wasting. NECK: JVP less than 5 centimeter. No carotid bruit. Carotid upstrokes 2+ bilaterally. CARDIOVASCULAR: Normal S1 and S2. Regular rate and rhythm. No murmurs, gallops, or rubs. PMI is at fourth intercostal space at the midclavicular line. LUNGS: Clear to auscultation bilaterally. ABDOMEN: Soft, nontender, and nondistended. No hepatosplenomegaly. Positive bowel sounds. EXTREMITIES: No evidence of edema, clubbing, or cyanosis. EL LARIOS Jan 07, 2018 16:00
[2018-01-07] MEDS: Dyna-Hex 2% Top Sol 2oz TOPIC SCH (20:54)
--- NOTE | 2018-01-07 22:48 | Pulmonology Progress Note ---
Assessment/Plan Problems: (1) Sepsis (2) Colon cancer (3) HTN (hypertension) (4) Metastatic adenocarcinoma Assessment/Plan improivng continue abx check cultures azactam , vancomycin stopped check electrolytes titrate fio2 to sat of 92% monitor bp f/u Id recommendations sympotmatic treatment dvt prophylaxis. Subjective ROS Limited/Unobtainable: No Constitutional: Reports: no symptoms HEENT: Repors: no symptoms Respiratory: Reports: no symptoms Allergies: Coded Allergies: PENICILLINS (Verified Adverse Reaction, Severe, "passed out", 05/07/17) Objective Last 24 Hour Vital Signs Date Time Temp Pulse Resp B/P (MAP) Pulse Ox O2 Delivery O2 Flow Rate FiO2 01/07/18 20:56 76 122/72 01/07/18 20:01 85 18 Room Air 21 01/07/18 20:00 97.0 76 20 122/72 96 01/07/18 16:15 98.0 82 20 140/78 97 Room Air 01/07/18 12:15 97.3 74 19 128/71 96 Room Air 01/07/18 08:39 131/79 01/07/18 08:38 68 131/79 01/07/18 08:38 68 131/79 01/07/18 08:15 97.3 90 18 134/76 98 Room Air 01/07/18 04:00 97.9 68 18 131/79 98 01/07/18 00:00 97.3 57 19 137/72 100 Room Air Intake and Output 01/06/18 01/07/18 19:00 07:00 Intake Total 1190 ml 50 ml Balance 1190 ml 50 ml Intake Oral 1140 ml IV Total 50 ml 50 ml # Voids 5 3 Objective Head: normocephalic, atraumatic Eyes: bilateral eye PERRL, bilateral eye EOMI ENT: hearing grossly normal, normal pharynx, TMs + canals normal, uvula midline Neck: full range of motion, supple, no meningismus, no bony tend Respiratory: no retraction, no accessory muscle use, wheezing - Cardiovascular #1: normal peripheral pulses, regular rate, rhythm, no edema, no gallop, no JVD, no murmur Gastrointestinal: normal bowel sounds, non tender, soft, no mass, no organomegaly, non-distended, no guarding, no hernia, no pulsatile mass, no rebound Genitourinary: no CVA tenderness Musculoskeletal: normal inspection Neurologic: oriented x3, responsive, granite block paver III-XII nml as tested, motor strength/ tone normal, sensory intact Psychiatric: mood/affect normal Microbiology Date/Time Source Procedure Growth Status 01/05/18 06:50 Indwelling Cath Urine Culture - Preliminary Mixed Urogenital Contaminants Streptococcus Species Resulted 01/05/18 03:00 Abdomen Gram Stain - Final Resulted 01/05/18 03:00 Abdomen Wound Culture Pending Resulted Laboratory Tests 01/07/18 07:10: White Blood Count 6.4, Red Blood Count 4.53, Hemoglobin 12.9, Hematocrit 38.7, Mean Corpuscular Volume 85, Mean Corpuscular Hemoglobin 28.6, Mean Corpuscular Hemoglobin Concent 33.4, Red Cell Distribution Width 15.0H, Platelet Count 286, Mean Platelet Volume 5.4L, Neutrophils (%) (Auto) 63.8, Lymphocytes (%) (Auto) 21.9, Monocytes (%) (Auto) 5.0, Eosinophils (%) (Auto) 8.0H, Basophils (%) (Auto ) 1.3, Sodium Level 138, Potassium Level 3.9, Chloride Level 103, Carbon Dioxide Level 29, Anion Gap 6, Blood Urea Nitrogen 15, Creatinine 0.8, Estimat Glomerular Filtration Rate , Glucose Level 135H, Calcium Level 9.9 Current Medications Medications (Trade) Dose Ordered Sig/Leonardo Route PRN Reason Start Time Stop Time Status Last Admin Dose Admin Acetaminophen (Tylenol) 650 mg Q4H PRN ORAL fever (temp>100.5F) 01/04/18 19:15 02/03/18 19:14 Albuterol/ Ipratropium (Albuterol/ Ipratropium) 3 ml Q4H PRN HHN Shortness of Breath 01/04/18 19:15 01/09/18 19:14 Amlodipine Besylate (Norvasc) 10 mg DAILY ORAL 01/05/18 09:00 02/04/18 08:59 01/07/18 08:38 Carvedilol (Coreg) 6.25 mg EVERY 12 HOURS ORAL 01/05/18 21:00 02/04/18 20:59 01/07/18 20:56 Chlorhexidine Gluconate (Minnie-Hex 2%) 1 applic DAILY@1999 TOPIC 01/05/18 20:00 3/9/18 19:59 01/07/18 20:54 Dextrose (Dextrose 50%) STAT PRN IV Hypoglycemia 01/04/18 20:00 02/03/18 19:59 Heparin Sodium (Porcine) (Heparin 5000 units/ml) 5,000 units EVERY 12 HOURS SUBQ 01/04/18 21:00 02/03/18 20:59 01/07/18 20:58 Insulin Aspart (NovoLOG) BEFORE MEALS AND HS SUBQ 01/04/18 21:00 02/03/18 20:59 01/07/18 20:58 Lisinopril (Zestril) 10 mg DAILY ORAL 01/05/18 09:00 02/04/18 08:59 01/07/18 08:39 Lorazepam (Ativan) 1 mg Q6H PRN ORAL For Anxiety 01/05/18 05:00 01/12/18 04:59 Morphine Sulfate (Morphine Sulfate) 2 mg Q4H PRN IVP Moderate Pain (Pain Scale 4-6) 01/04/18 19:15 01/11/18 19:14 Nitrofurantoin (Macrobid) 100 mg EVERY 12 HOURS ORAL 01/07/18 21:00 02/06/18 20:59 01/07/18 20:56 Ondansetron HCl (Zofran) 4 mg Q6H PRN IVP Nausea & Vomiting 01/04/18 19:15 02/03/18 19:14 Phenazopyridine HCl (Pyridium) 100 mg DAILYPRN PRN ORAL dysuria 01/04/18 19:15 02/03/18 19:14 Polyethylene Glycol (Miralax) 17 gm DAILYPRN PRN ORAL Constipation 01/04/18 19:15 02/03/18 19:14 Risperidone (RisperDAL) 2 mg BID ORAL 01/05/18 09:00 02/04/18 08:59 01/07/18 18:03 Temazepam (Restoril) 15 mg HSPRN PRN ORAL Insomnia 01/04/18 19:15 01/11/18 19:14 MEHRAN BARAJAS Jan 07, 2018 22:47
[2018-01-08] VITALS: BP 141/75
--- NOTE | 2018-01-08 00:51 | General Progress Note ---
Assessment/Plan Assessment/Plan 1. Metastatic colon cancer with colonic thickening and spread to the liver and multiple hepatic masses noted. --> Most recently, the patient had a CAT scan in May 2017. --> She had elevated tumor markers as well. --> She is again currently a resident in a long-term care facility. --> Status post hemicolectomy. --> Continue to monitor in outpatient setting. Pt is not a treatment candidate. 2. Leukocytosis, potentially secondary to underlying malignancy versus infection. --> She is on broad-spectrum antibiotics. 3. Anemia due to underlying chronic disease. --> Continue to closely monitor. 4. Hypertension. --> Blood pressure is better controlled at this moment. 5. Sepsis, likely due to underlying infection. --> Continue to closely monitor as per Infectious Disease Service. 6. Psychiatric disorder. She has been seen by Dr. Jasvir Montano. Subjective Date patient seen: Jan 07, 2018 Constitutional: Denies: no symptoms, chills, diaphoresis, fever, malaise, weakness, other HEENT: Denies: no symptoms, eye pain, blurred vision, tearing, double vision, ear pain, ear discharge, nose pain, nose congestion, throat pain, throat swelling, mouth pain, mouth swelling, other Cardiovascular: Denies: no symptoms, chest pain, edema, irregular heart rate, lightheadedness, palpitations, syncope, other Respiratory: Denies: no symptoms, cough, orthopnea, shortness of breath, SOB with excertion, SOB at rest, sputum, stridor, wheezing, other Gastrointestinal/Abdominal: Denies: no symptoms, abdomen distended, abdominal pain, black stools, tarry stools, blood in stool, constipated, diarrhea, difficulty swallowing, nausea, poor appetite, poor fluid intake, rectal bleeding , vomiting, other Genitourinary: Denies: no symptoms, burning, discharge, frequency, flank pain, hematuria, incontinence, pain, urgency, other Neurologic/Psychiatric: Denies: no symptoms, anxiety, depressed, emotional problems, headache, numbness, paresthesia, pre-existing deficit, seizure, tingling, tremors, weakness, other Allergies: Coded Allergies: PENICILLINS (Verified Adverse Reaction, Severe, "passed out", 05/07/17) Subjective H/H stable. No fever. Objective Last 24 Hour Vital Signs Date Time Temp Pulse Resp B/P (MAP) Pulse Ox O2 Delivery O2 Flow Rate FiO2 01/08/18 00:00 97.1 61 20 141/75 99 01/07/18 20:56 76 122/72 01/07/18 20:01 85 18 Room Air 21 01/07/18 20:00 97.0 76 20 122/72 96 01/07/18 16:15 98.0 82 20 140/78 97 Room Air 01/07/18 12:15 97.3 74 19 128/71 96 Room Air 01/07/18 08:39 131/79 01/07/18 08:38 68 131/79 01/07/18 08:38 68 131/79 01/07/18 08:15 97.3 90 18 134/76 98 Room Air 01/07/18 04:00 97.9 68 18 131/79 98 Intake and Output 01/07/18 01/08/18 19:00 07:00 Intake Total 240 ml Balance 240 ml Intake Oral 240 ml # Voids 4 Laboratory Tests 01/07/18 07:10: White Blood Count 6.4, Red Blood Count 4.53, Hemoglobin 12.9, Hematocrit 38.7, Mean Corpuscular Volume 85, Mean Corpuscular Hemoglobin 28.6, Mean Corpuscular Hemoglobin Concent 33.4, Red Cell Distribution Width 15.0H, Platelet Count 286, Mean Platelet Volume 5.4L, Neutrophils (%) (Auto) 63.8, Lymphocytes (%) (Auto) 21.9, Monocytes (%) (Auto) 5.0, Eosinophils (%) (Auto) 8.0H, Basophils (%) (Auto ) 1.3, Sodium Level 138, Potassium Level 3.9, Chloride Level 103, Carbon Dioxide Level 29, Anion Gap 6, Blood Urea Nitrogen 15, Creatinine 0.8, Estimat Glomerular Filtration Rate , Glucose Level 135H, Calcium Level 9.9 Height (Feet): 5 Height (Inches): 2.00 Weight (Pounds): 140 General Appearance: lethargic, confused Cheko Samuel Jan 08, 2018 00:51
[2018-01-08 04:00] VITALS: BP 121/71
[2018-01-08] MEDS: NovoLOG Insulin Flexpen SUBQ SCH ×3 (06:09→16:30)
[2018-01-08] MEDS: Heparin 5000 units/ml inj SUBQ SCH (08:11)
[2018-01-08] MEDS: Lisinopril 10mg tab ORAL SCH (08:14)
[2018-01-08] MEDS: Carvedilol 6.25mg Tab ORAL SCH (08:14)
[2018-01-08 08:33] VITALS: BP 139/81
--- NOTE | 2018-01-08 08:41 | General Progress Note ---
Assessment/Plan Problem List: (1) Diabetes ICD Codes: E11.9 - Type 2 diabetes mellitus without complications SNOMED: 19266851 (2) Weak ICD Codes: R53.1 - Weakness SNOMED: 34701006 (3) Confusion ICD Codes: R41.0 - Disorientation, unspecified SNOMED: 001875517 (4) Anemia ICD Codes: D64.9 - Anemia, unspecified SNOMED: 044826929 (5) Schizophrenia ICD Codes: F20.9 - Schizophrenia, unspecified SNOMED: 76680628 (6) Sepsis ICD Codes: A41.9 - Sepsis, unspecified organism SNOMED: 11913644 Status: unchanged Assessment/Plan ot pt diet abx psyc tx dc if clear Subjective Constitutional: Reports: weakness Allergies: Coded Allergies: PENICILLINS (Verified Adverse Reaction, Severe, "passed out", 05/07/17) All Systems: reviewed and negative except above Subjective calm in bed confused Objective Last 24 Hour Vital Signs Date Time Temp Pulse Resp B/P (MAP) Pulse Ox O2 Delivery O2 Flow Rate FiO2 01/08/18 08:33 97.4 80 18 139/81 Room Air 01/08/18 08:14 72 121/71 01/08/18 08:14 121/71 01/08/18 08:14 72 121/71 01/08/18 06:49 72 18 Room Air 21 01/08/18 04:00 98.1 58 20 121/71 99 01/08/18 00:00 97.1 61 20 141/75 99 01/07/18 20:56 76 122/72 01/07/18 20:01 85 18 Room Air 21 01/07/18 20:00 97.0 76 20 122/72 96 01/07/18 16:15 98.0 82 20 140/78 97 Room Air 01/07/18 12:15 97.3 74 19 128/71 96 Room Air Intake and Output 01/07/18 01/08/18 19:00 07:00 Intake Total 240 ml Balance 240 ml Intake Oral 240 ml # Voids 4 2 Height (Feet): 5 Height (Inches): 2.00 Weight (Pounds): 140 General Appearance: lethargic, confused EENT: normal ENT inspection Neck: normal alignment Cardiovascular: normal peripheral pulses, normal rate, regular rhythm Respiratory/Chest: chest wall non-tender, lungs clear, normal breath sounds Abdomen: normal bowel sounds, non tender, soft Extremities: normal inspection Edema: no edema noted Arm (L), no edema noted Arm (R), no edema noted Leg (L), no edema noted Leg (R), no edema noted Pedal (L), no edema noted Pedal (R), no edema noted Generalized Neurologic: responsive, motor weakness Skin: normal pigmentation, warm/dry JANELLE RENEE Jan 08, 2018 08:41
[2018-01-08] MEDS ORDERED: NITROFURANTOIN100 M2 ORAL ×2 (11:11→11:12)
--- NOTE | 2018-01-08 11:46 | Infectious Diseases Prog Note ---
Assessment/Plan Assessment/Plan antibiotics : nitrofurantoin A 1. enterococcus UTI 2. metastatic colon cancer 3. DM 4. leucocytosis resolved P 1. continue nitrofurantoin 2. will follow up cultures Subjective Constitutional: Denies: fever, chills Respiratory: Denies: shortness of breath, dry cough Gastrointestinal/Abdominal: Denies: nausea, vomiting, diarrhea Musculoskeletal: Denies: pain Allergies: Coded Allergies: PENICILLINS (Verified Adverse Reaction, Severe, "passed out", 05/07/17) Objective Vital Signs Last 24 Hour Vital Signs Date Time Temp Pulse Resp B/P (MAP) Pulse Ox O2 Delivery O2 Flow Rate FiO2 01/08/18 08:33 97.4 80 18 139/81 Room Air 01/08/18 08:14 72 121/71 01/08/18 08:14 121/71 01/08/18 08:14 72 121/71 01/08/18 06:49 72 18 Room Air 21 01/08/18 04:00 98.1 58 20 121/71 99 01/08/18 00:00 97.1 61 20 141/75 99 01/07/18 20:56 76 122/72 01/07/18 20:01 85 18 Room Air 21 01/07/18 20:00 97.0 76 20 122/72 96 01/07/18 16:15 98.0 82 20 140/78 97 Room Air 01/07/18 12:15 97.3 74 19 128/71 96 Room Air Height (Feet): 5 Height (Inches): 2.00 Weight (Pounds): 140 Respiratory/Chest: lungs clear Cardiovascular: normal rate, regular rhythm, no gallop/murmur Abdomen: soft, non tender Extremities: no edema, other - right arm PICC MUNDO MELÉNDEZ Jan 08, 2018 11:46
--- NOTE | 2018-01-08 11:58 | Pulmonology Progress Note ---
Assessment/Plan Problems: (1) Sepsis (2) Colon cancer (3) HTN (hypertension) (4) Metastatic adenocarcinoma Assessment/Plan no new complains continue abx check cultures azactam , vancomycin stopped check electrolytes titrate fio2 to sat of 92% monitor bp f/u Id recommendations sympotmatic treatment dvt prophylaxis. dc planning in progress Subjective ROS Limited/Unobtainable: No Constitutional: Reports: no symptoms HEENT: Repors: no symptoms Respiratory: Reports: no symptoms Allergies: Coded Allergies: PENICILLINS (Verified Adverse Reaction, Severe, "passed out", 05/07/17) Objective Last 24 Hour Vital Signs Date Time Temp Pulse Resp B/P (MAP) Pulse Ox O2 Delivery O2 Flow Rate FiO2 01/08/18 08:33 97.4 80 18 139/81 Room Air 01/08/18 08:14 72 121/71 01/08/18 08:14 121/71 01/08/18 08:14 72 121/71 01/08/18 06:49 72 18 Room Air 21 01/08/18 04:00 98.1 58 20 121/71 99 01/08/18 00:00 97.1 61 20 141/75 99 01/07/18 20:56 76 122/72 01/07/18 20:01 85 18 Room Air 21 01/07/18 20:00 97.0 76 20 122/72 96 01/07/18 16:15 98.0 82 20 140/78 97 Room Air 01/07/18 12:15 97.3 74 19 128/71 96 Room Air Intake and Output 01/07/18 01/08/18 19:00 07:00 Intake Total 240 ml Balance 240 ml Intake Oral 240 ml # Voids 4 2 Objective Head: normocephalic, atraumatic Eyes: bilateral eye PERRL, bilateral eye EOMI ENT: hearing grossly normal, normal pharynx, TMs + canals normal, uvula midline Neck: full range of motion, supple, no meningismus, no bony tend Respiratory: no retraction, no accessory muscle use, wheezing - Cardiovascular #1: normal peripheral pulses, regular rate, rhythm, no edema, no gallop, no JVD, no murmur Gastrointestinal: normal bowel sounds, non tender, soft, no mass, no organomegaly, non-distended, no guarding, no hernia, no pulsatile mass, no rebound Genitourinary: no CVA tenderness Musculoskeletal: normal inspection Neurologic: oriented x3, responsive, photographic reproduction technician III-XII nml as tested, motor strength/ tone normal, sensory intact Psychiatric: mood/affect normal Current Medications Medications (Trade) Dose Ordered Sig/Leonardo Route PRN Reason Start Time Stop Time Status Last Admin Dose Admin Acetaminophen (Tylenol) 650 mg Q4H PRN ORAL fever (temp>100.5F) 01/04/18 19:15 02/03/18 19:14 Albuterol/ Ipratropium (Albuterol/ Ipratropium) 3 ml Q4H PRN HHN Shortness of Breath 01/04/18 19:15 01/09/18 19:14 Amlodipine Besylate (Norvasc) 10 mg DAILY ORAL 01/05/18 09:00 02/04/18 08:59 01/08/18 08:14 Carvedilol (Coreg) 6.25 mg EVERY 12 HOURS ORAL 01/05/18 21:00 02/04/18 20:59 01/08/18 08:14 Chlorhexidine Gluconate (Minnie-Hex 2%) 1 applic DAILY@2000 TOPIC 01/05/18 20:00 02/04/18 19:59 01/07/18 20:54 Dextrose (Dextrose 50%) STAT PRN IV Hypoglycemia 01/04/18 20:00 02/03/18 19:59 Heparin Sodium (Porcine) (Heparin 5000 units/ml) 5,000 units EVERY 12 HOURS SUBQ 01/04/18 21:00 02/03/18 20:59 01/08/18 08:11 Insulin Aspart (NovoLOG) BEFORE MEALS AND HS SUBQ 01/04/18 21:00 02/03/18 20:59 01/08/18 06:09 Lisinopril (Zestril) 10 mg DAILY ORAL 01/05/18 09:00 02/04/18 08:59 01/08/18 08:14 Lorazepam (Ativan) 1 mg Q6H PRN ORAL For Anxiety 01/05/18 05:00 01/12/18 04:59 Morphine Sulfate (Morphine Sulfate) 2 mg Q4H PRN IVP Moderate Pain (Pain Scale 4-6) 01/04/18 19:15 01/11/18 19:14 Nitrofurantoin (Macrobid) 100 mg EVERY 12 HOURS ORAL 01/07/18 21:00 02/06/18 20:59 01/08/18 08:15 Ondansetron HCl (Zofran) 4 mg Q6H PRN IVP Nausea & Vomiting 01/04/18 19:15 02/03/18 19:14 Phenazopyridine HCl (Pyridium) 100 mg DAILYPRN PRN ORAL dysuria 01/04/18 19:15 02/03/18 19:14 Polyethylene Glycol (Miralax) 17 gm DAILYPRN PRN ORAL Constipation 01/04/18 19:15 02/03/18 19:14 Risperidone (RisperDAL) 2 mg BID ORAL 01/05/18 09:00 02/04/18 08:59 01/08/18 08:14 Temazepam (Restoril) 15 mg HSPRN PRN ORAL Insomnia 01/04/18 19:15 01/11/18 19:14 MEHRAN BARAJAS Jan 08, 2018 11:58
[2018-01-08 12:53] VITALS: BP 143/79
[2018-01-08] MEDS ORDERED: Tubing IV Secondary IV ONE (14:57)
[2018-01-08] MEDS ORDERED: NS 500ML ONE (14:57)
[2018-01-08 16:00] VITALS: BP 157/95
--- NOTE | 2018-01-08 22:00 | Progress Note ---
DATE: 01/08/2018 SUBJECTIVE: The patient is a 72-year-old female patient with sepsis. She continues to have some confusion and disorganized thought process, mood lability worsened by stress of her medical illness that is why her attending physician has requested daily psychiatric consultation. MENTAL STATUS EXAMINATION: This is a 72-year-old female with psychomotor agitation. Mood is irritable and agitated. . Insight and judgment is poor. DIAGNOSIS: Paranoid schizophrenia with acute exacerbation. PLAN: Treat with Risperdal 2 mg twice a day to stabilize her mood, reduce agitation and psychosis. We provided her with 15 to 20 minutes of supportive therapy. Seen and assessed at bedside. Chart reviewed. Discussed with staff. Jasvir Montano M.D. DR: Brittany JOB#: [id number] CC:
--- NOTE | 2018-01-08 23:39 | General Progress Note ---
Assessment/Plan Status: unchanged Assessment/Plan 1. Metastatic colon cancer with colonic thickening and spread to the liver and multiple hepatic masses noted. --> Most recently, the patient had a CAT scan in May 2017. --> She had elevated tumor markers as well. --> She is again currently a resident in a long-term care facility. --> Status post hemicolectomy. --> Continue to monitor in outpatient setting. Pt is not a treatment candidate. 2. Leukocytosis, potentially secondary to underlying malignancy versus infection. --> She is on broad-spectrum antibiotics. --> Resolved. 3. Anemia due to underlying chronic disease. --> Continue to closely monitor. --> Blood transfusion not required unless symptomatic or hgb <7 4. Hypertension. --> Blood pressure is better controlled at this moment. 5. Sepsis, likely due to underlying infection. --> Continue to closely monitor as per Infectious Disease Service. 6. Psychiatric disorder. She has been seen by Dr. Jasvir Montano. Subjective Date patient seen: Jan 08, 2018 Constitutional: Denies: no symptoms, chills, diaphoresis, fever, malaise, weakness, other HEENT: Denies: no symptoms, eye pain, blurred vision, tearing, double vision, ear pain, ear discharge, nose pain, nose congestion, throat pain, throat swelling, mouth pain, mouth swelling, other Cardiovascular: Denies: no symptoms, chest pain, edema, irregular heart rate, lightheadedness, palpitations, syncope, other Respiratory: Denies: no symptoms, cough, orthopnea, shortness of breath, SOB with excertion, SOB at rest, sputum, stridor, wheezing, other Gastrointestinal/Abdominal: Denies: no symptoms, abdomen distended, abdominal pain, black stools, tarry stools, blood in stool, constipated, diarrhea, difficulty swallowing, nausea, poor appetite, poor fluid intake, rectal bleeding , vomiting, other Hematologic/Lymphatic: Reports: anemia Allergies: Coded Allergies: PENICILLINS (Verified Adverse Reaction, Severe, "passed out", 05/07/17) Subjective No active bleeding. On pain control. Objective Last 24 Hour Vital Signs Date Time Temp Pulse Resp B/P (MAP) Pulse Ox O2 Delivery O2 Flow Rate FiO2 01/08/18 16:00 97.3 103 20 157/95 95 01/08/18 12:53 97.3 90 18 143/79 96 Room Air 01/08/18 08:33 97.4 80 18 139/81 Room Air 01/08/18 08:14 72 121/71 01/08/18 08:14 121/71 01/08/18 08:14 72 121/71 01/08/18 06:49 72 18 Room Air 21 01/08/18 04:00 98.1 58 20 121/71 99 01/08/18 00:00 97.1 61 20 141/75 99 Intake and Output 01/07/18 01/08/18 19:00 07:00 Intake Total 240 ml Balance 240 ml Intake Oral 240 ml # Voids 4 2 Height (Feet): 5 Height (Inches): 2.00 Weight (Pounds): 140 General Appearance: no apparent distress Cheko Samuel Jan 08, 2018 23:39
--- NOTE | 2018-01-10 16:02 | Discharge Summary ---
Discharge Summary Hospital Course Date of Admission Jan 04, 2018 at 16:29 Date of Discharge Jan 08, 2018 at 17:25 Admitting Diagnosis sepsis HPI Radha Joiner is a 72 year old female who was admitted on Jan 04, 2018 at 16 :29 for Sepsis Hospital Course dc summary #[id number] Discharge Medications Continued Medications: Nitrofurantoin Monohyd/M-Cryst* (Macrobid 100 Mg*) 100 Mg Capsule 100 MG ORAL EVERY 12 HOURS, CAP Discharge Condition Upon Discharge: stable Discharge Disposition Patient was discharged to SNF/Subacute Facility(03) Discharge Diagnoses: Discharge Instructions Discharge Instructions Special Instructions I have been assigned to complete a D/C Summary on this account. I was not involved in the patient management Zachery Perry)Mayelin NP Jan 10, 2018 16:02
--- NOTE | 2018-01-11 12:00 | Discharge Summary 2 SIG ---
DATE OF ADMISSION: 01/04/2018 DATE OF DISCHARGE: 01/08/2018 REASON FOR ADMISSION: 72-year-old female with a past medical history of metastatic colon cancer, chronic kidney disease, and schizophrenia, was [facility] from [facility] due to elevated white blood count. The patient by herself was unable to provide any information. Vital signs were stable. No fever. Stable blood pressure. Slight tachycardia -108. WBC -11.4. Lactic acid - 2.1. Urinalysis was grossly positive for UTI. EKG showed normal sinus rhythm. No acute ischemic changes. Chest x-ray showed mild atelectasis. Otherwise, no acute cardiopulmonary disease. The patient was admitted with diagnoses of possible sepsis, leukocytosis, UTI, and encephalopathy. HOSPITAL COURSE: The patient was admitted. Infectious Disease, psychiatric, oncologist, Pulmonary, and Cardiology consults were requested. Infectious Diseases doctor started the patient on empiric antibiotics. Urine culture revealed Enterococcus faecalis and Enterococcus raffinosus. Blood cultures were negative, repeated x2. Leukocytosis resolved. The patient was on IV antibiotics while in the hospital and switched to nitrofurantoin prior to discharge. Psychiatrist followed up the patient, diagnosed the patient with paranoid schizophrenia with acute exacerbation and optimized psychiatric medication regimen. Supplemental oxygen and pulmonary toilet provided as needed. Pulse oximetry was stable on the room air. Cardiology followed the patient. Blood pressure was in good control with the current regimen of hydralazine. DVT prophylaxis provided. Blood sugar was managed with a sliding scale of insulin. Bowel regimen instituted. Oncologist had seen the patient. The patient with a history of metastatic colon cancer/ metastatic adenocarcinoma, with cancer spread to the liver with multiple hepatic masses noted. Most recent CAT scan was done in May 2017. At that time, the patient also had elevated tumor markers. The [facility], status post hemicolectomy. Oncologist recommended to continue monitor in outpatient setting. The patient was not a candidate for treatment. Leukocytosis was potentially secondary to underlying malignancy versus infection. Leukocytosis resolved. The patient had anemia due to underlying chronic disease. Hemoglobin and hematocrit were closely monitored and remained on the baseline. No transfusion necessary unless symptomatic or hemoglobin below 7. The patient was stable for discharge. FINAL DIAGNOSES: 1. Possible sepsis. 2. Enterococci urinary tract infection. 3. Metastatic colon cancer/Metastatic adenocarcinoma. 4. Diabetes mellitus. 5. Anemia of chronic disease. 6. Hypertension. 7. Paranoid schizophrenia with acute exacerbation. DISCHARGE MEDICATIONS: See medication reconciliation list. DISCHARGE INSTRUCTIONS: The patient discharged to [facility] facility. Follow up with medical doctor at the facility. Michael Moreira D.O. I have been assigned to dictate discharge summary on this account and I was not involved in the patient's management. Mayelin [facility]F [facility]als[facility] NGlynnPGlynn DR: Bella JOB#: [id number] CC: [email or web address]
== END 2018-01-08 17:25 | DRG 871 ==
LOC: EDBD 14:11 → EMR 16:20 → 4E 16:29 → EDBEDREQ 17:23 → 4E 21:01
DX: A41.9 Sepsis, unspecified organism (principal); G93.40 Encephalopathy, unspecified; C78.7 Secondary malignant neoplasm of liver and intrahepatic bile duct; F03.90 Unspecified dementia, unspecified severity, without behavioral disturbance, psychotic disturbance, mood disturbance, and anxiety; E88.09 Other disorders of plasma-protein metabolism, not elsewhere classified; E11.22 Type 2 diabetes mellitus with diabetic chronic kidney disease; R13.10 Dysphagia, unspecified; F20.0 Paranoid schizophrenia; N39.0 Urinary tract infection, site not specified; D63.8 Anemia in other chronic diseases classified elsewhere; Z88.0 Allergy status to penicillin; B95.2 Enterococcus as the cause of diseases classified elsewhere; I12.9 Hypertensive chronic kidney disease with stage 1 through stage 4 chronic kidney disease, or unspecified chronic kidney disease; N18.9 Chronic kidney disease, unspecified; Z90.49 Acquired absence of other specified parts of digestive tract; R32 Unspecified urinary incontinence; Z85.038 Personal history of other malignant neoplasm of large intestine; R41.0 Disorientation, unspecified
CPT/HCPCS: 36415; 71045; 80048; 80053; 81003; 82550; 82553; 82962; 83605; 84484; 85025; 87040; 87070; 87081; 87086; 87181; 87205; 93005; 94664; 99285; J1815